=== PATIENT | male | born 1945 | race Caucasian/White ===

== ENCOUNTER 2020-05-29 20:02 | Inpatient (IN) | payer MEDICARE, SELFPAY ==
[2020-05-26 09:35] VITALS: BMI 25.0
--- NOTE | 2020-05-26 10:52 | P.CONAN_ITS ---
Documented by User: Nia Reese 05/26/20 10:53 [facility] Past Medical History Medical History Arthritis Asthma Back pain COPD (chronic obstructive pulmonary disease) HTN (hypertension) Hypogonadism Hypothyroid Kidney stone Prostate cancer PVD (peripheral vascular disease) Surgical History Surgical History H/O hernia repair History of colonoscopy History of esophagogastroduodenoscopy (EGD) History of prostate surgery Social History Social History Smoking Status: Former smoker Use of substances other than those prescribed or required for medical reasons: No Have you been hit, kicked, punched, or otherwise hurt by someone within the past year? If so, by whom?: No Advance Directives: No Advance Directives Information Provided: Yes Advance Directives on File: No Recently lost weight without trying: No Meds Allergies Allergy/AdvReac Type Severity Reaction Status Date / Time oxycodone [OXYCODONE] Allergy Severe VOMITING, Unverified 05/11/20 14:53 very ill garlic [GARLIC] Allergy Intermediate N/V Unverified 05/11/20 14:53 povidone-iodine Allergy Intermediate RASH Unverified 05/11/20 14:53 [From BETADINE] tramadol [TRAMADOL] Allergy Intermediate GI UPSET, Unverified 05/11/20 14:53 stomach upset diclofenac [DICLOFENAC] Allergy Unknown UNKNOWN Unverified 05/11/20 14:53 finasteride [FINASTERIDE] Allergy Unknown UNKNOWN Unverified 05/11/20 14:53 gabapentin Allergy Unknown Verified 02/01/20 00:00 leuprolide [LEUPROLIDE] Allergy Unknown UNKNOWN Unverified 05/11/20 14:53 naproxen [NAPROXEN] Allergy Unknown UNKNOWN Unverified 05/11/20 14:53 onions Allergy Unknown diarrhea Unverified 02/01/20 00:00 prednisone [PREDNISONE] Allergy Unknown UNKNOWN Unverified 05/11/20 14:53 soap [Betadine] Allergy Unknown Verified 02/01/20 00:00 onion [Onion] AdvReac Intermediate DIARRHEA Unverified 05/11/20 14:53 solifenacin [From VESICARE] AdvReac Intermediate DIZZINESS,N Unverified 05/11/20 14:53 AUSEA cephalexin AdvReac Unknown Verified 02/01/20 00:00 garlic Allergy Unknown diarrhea Uncoded 01/19/20 00:00 vitamin c Allergy Unknown severe Uncoded 01/19/20 00:00 heartburn Home Medications Medication Instructions Recorded Confirmed Type Phenylephrine CM 10 mg DAILY 05/26/20 05/26/20 History Vitamin D3 1 cap PO DAILY 05/26/20 05/26/20 History acetaminophen [Tylenol] 650 mg PO Q6H PRN 05/26/20 05/26/20 History albuterol sulfate 2 puff PO Q6H PRN 05/26/20 05/26/20 History apalutamide 60 mg PO DAILY 05/26/20 05/26/20 History aspirin 81 mg PO DAILY 05/26/20 05/26/20 History calcium carbonate 1 tab PO DAILY 05/26/20 05/26/20 History cefuroxime axetil 1 tab PO Q12H 05/26/20 05/26/20 History cephalexin 500 mg PO Q12H 05/26/20 05/26/20 History cilostazol 50 mg PO BID 05/26/20 05/26/20 History coenzyme Q10 [Co Q-10] 100 mg PO DAILY 05/26/20 05/26/20 History diclofenac potassium 50 mg PO BID 05/26/20 05/26/20 History fluticasone propionate [Flonase] 1 spray INTRANASAL DAILY 05/26/20 05/26/20 History lisinopril 20 mg PO DAILY 05/26/20 05/26/20 History magnesium 1 tab PO DAILY 05/26/20 05/26/20 History tamsulosin 0.4 mg PO DAILY 05/26/20 05/26/20 History trimethoprim 1 tab PO DAILY 05/26/20 05/26/20 History vitamin B complex 1 cap PO DAILY 05/26/20 05/26/20 History vitamin I00-nfgdw acid 100 mcg PO DAILY 05/26/20 05/26/20 History Azo Bladder Control 05/29/20 History amlodipine 1 tab PO DAILY 05/29/20 05/29/20 History enzalutamide [Xtandi] mg PO 05/29/20 History ipratropium-albuterol 1 amp INHALATION Q6H 05/29/20 05/29/20 History Exam Exam Date and Time: May 26, 2020 1052 Height,Weight and Vital Signs: Height 5 ft 7 in Weight 72.575 kg Assessment and Plan Assessment Anesthesia Assessment: Chart Reviewed Documented by User: Giovanny Barton MD 05/29/20 12:45 [facility] Past Medical History Medical History Arthritis Asthma Back pain COPD (chronic obstructive pulmonary disease) HTN (hypertension) Hypogonadism Hypothyroid Kidney stone Prostate cancer PVD (peripheral vascular disease) Surgical History Surgical History H/O hernia repair History of colonoscopy History of esophagogastroduodenoscopy (EGD) History of prostate surgery Social History Social History Smoking Status: Former smoker Use of substances other than those prescribed or required for medical reasons: No Have you been hit, kicked, punched, or otherwise hurt by someone within the past year? If so, by whom?: No Advance Directives: No Advance Directives Information Provided: Yes Advance Directives on File: No Recently lost weight without trying: No Meds Allergies Allergy/AdvReac Type Severity Reaction Status Date / Time oxycodone [OXYCODONE] Allergy Severe VOMITING, Unverified 05/11/20 14:53 very ill garlic [GARLIC] Allergy Intermediate N/V Unverified 05/11/20 14:53 povidone-iodine Allergy Intermediate RASH Unverified 05/11/20 14:53 [From BETADINE] tramadol [TRAMADOL] Allergy Intermediate GI UPSET, Unverified 05/11/20 14:53 stomach upset diclofenac [DICLOFENAC] Allergy Unknown UNKNOWN Unverified 05/11/20 14:53 finasteride [FINASTERIDE] Allergy Unknown UNKNOWN Unverified 05/11/20 14:53 gabapentin Allergy Unknown Verified 02/01/20 00:00 leuprolide [LEUPROLIDE] Allergy Unknown UNKNOWN Unverified 05/11/20 14:53 naproxen [NAPROXEN] Allergy Unknown UNKNOWN Unverified 05/11/20 14:53 onions Allergy Unknown diarrhea Unverified 02/01/20 00:00 prednisone [PREDNISONE] Allergy Unknown UNKNOWN Unverified 05/11/20 14:53 soap [Betadine] Allergy Unknown Verified 02/01/20 00:00 onion [Onion] AdvReac Intermediate DIARRHEA Unverified 05/11/20 14:53 solifenacin [From VESICARE] AdvReac Intermediate DIZZINESS,N Unverified 05/11/20 14:53 AUSEA cephalexin AdvReac Unknown Verified 02/01/20 00:00 garlic Allergy Unknown diarrhea Uncoded 01/19/20 00:00 vitamin c Allergy Unknown severe Uncoded 01/19/20 00:00 heartburn Home Medications Medication Instructions Recorded Confirmed Type Phenylephrine CM 10 mg DAILY 05/26/20 05/26/20 History Vitamin D3 1 cap PO DAILY 05/26/20 05/26/20 History acetaminophen [Tylenol] 650 mg PO Q6H PRN 05/26/20 05/26/20 History albuterol sulfate 2 puff PO Q6H PRN 05/26/20 05/26/20 History apalutamide 60 mg PO DAILY 05/26/20 05/26/20 History aspirin 81 mg PO DAILY 05/26/20 05/26/20 History calcium carbonate 1 tab PO DAILY 05/26/20 05/26/20 History cefuroxime axetil 1 tab PO Q12H 05/26/20 05/26/20 History cephalexin 500 mg PO Q12H 05/26/20 05/26/20 History cilostazol 50 mg PO BID 05/26/20 05/26/20 History coenzyme Q10 [Co Q-10] 100 mg PO DAILY 05/26/20 05/26/20 History diclofenac potassium 50 mg PO BID 05/26/20 05/26/20 History fluticasone propionate [Flonase] 1 spray INTRANASAL DAILY 05/26/20 05/26/20 History lisinopril 20 mg PO DAILY 05/26/20 05/26/20 History magnesium 1 tab PO DAILY 05/26/20 05/26/20 History tamsulosin 0.4 mg PO DAILY 05/26/20 05/26/20 History trimethoprim 1 tab PO DAILY 05/26/20 05/26/20 History vitamin B complex 1 cap PO DAILY 05/26/20 05/26/20 History vitamin F73-joeke acid 100 mcg PO DAILY 05/26/20 05/26/20 History Azo Bladder Control 05/29/20 History amlodipine 1 tab PO DAILY 05/29/20 05/29/20 History enzalutamide [Xtandi] mg PO 05/29/20 History ipratropium-albuterol 1 amp INHALATION Q6H 05/29/20 05/29/20 History
[2020-05-29] VITALS (31 sets, daily range): BP systolic 112–199; BP diastolic 56–99; PULSE 77–122; RESP 14–24; TEMP 36.1–38.4; O2SAT 90–100
--- NOTE | 2020-05-29 | ECG_ITS ---
Test Reason : arrythmia Blood Pressure : / mmHG Vent. Rate : 136 BPM Atrial Rate : 192 BPM P-R Int : 000 ms QRS Dur : 116 ms QT Int : 284 ms P-R-T Axes : 000 063 027 degrees QTc Int : 427 ms Atrial fibrillation with rapid ventricular response with premature ventricular or aberrantly conducted complexes Right bundle branch block Abnormal ECG When compared with ECG of 11-APR-2020 17:12, Atrial fibrillation has replaced Sinus rhythm Vent. rate has increased BY 59 BPM Non-specific change in ST segment in Inferior leads ST now depressed in Anterolateral leads T wave inversion now evident in Anterior leads Referred By: aPko Mendoza Electronically Signed By:LEONEL ROBERTS
[2020-05-29] MEDS: levoFLOXacin 500 MG TABLET PO (11:00)
[2020-05-29] MEDS: Lactated Ringers 1,000 ML 100 ML IVCONT (11:00)
[2020-05-29] MEDS: Albuterol Sulfate (0.083%) 2.5 MG/3 ML VIAL.NEB INHALE ×3 (11:17→21:54)
--- NOTE | 2020-05-29 13:55 | FL_ITS ---
EXAMINATION: XR FLUOROSCOPY CLINICAL INFORMATION: Prostate cancer. Bilateral ureteral stent exchange COMPARISON: Previous CT of the abdomen and pelvis November 2019 TECHNIQUE: Fluoroscopy guidance was provided for Dr. Bear for bilateral internal ureteral stent exchange. Fluoroscopy time 109 seconds. Cumulative dose 46 mgy. 5 saved fluoroscopic images. FINDINGS: Images demonstrate bilateral internal ureteral stents. The left ureter is opacified with contrast and is dilated. IMPRESSION: Fluoroscopy guidance for bilateral internal ureteral stent exchange.
--- NOTE | 2020-05-29 14:38 | PM.OP ---
Brief Operative Note Date of procedure: 05/29/20 Pre-op diagnosis: Bilateral hydro from cancer Post-op diagnosis: same Procedure: bilateral stent removal bilateral retrograde bilateral stent placement meatal stenosis dilation Implants: 2x stents Anesthesia: GLMA Surgeon: Yoel Bear Pathology: none sent Condition: stable Disposition: same day
[2020-05-29] MEDS: fentaNYL citrate/PF 100 MCG/2 ML VIAL 25 MCG IVPUSH ×4 (14:58→15:45)
[2020-05-29] MEDS: Phenazopyridine HCL 100 MG TABLET PO (16:03)
[2020-05-29] MEDS: Lactated Ringers 1,000 ML 999 ML IVCONT (17:50)
[2020-05-29] MEDS: ondansetron HCL 4 MG/2 ML VIAL IVPUSH (18:01)
[2020-05-29] MEDS: Gentamicin Sulfate/NaCl 80 MG/100 ML PIGGYBACK 100 MG IV (18:02)
--- NOTE | 2020-05-29 19:19 | PC.NURSE ---
Addendum entered by Lizz Gonzalez RN 05/29/20 19:39: 1740 givens unplugged and put to drainage bag, done with sterile technique, urine yellow/marisa with tiny clots/ sediment Original Note: 1750 Scanner not working , Maricarmen Simon aware Zofran 4mg IV given for nausea with good results at 1730 acetaminophen 100mg IV given at 1745 LR 1000 cc fluid bolus started at 1730 Gentamicin 80mh IV started at 1758
[2020-05-29 19:41] LABS: Basophils Percent Auto 0.1 % (0-2); Eosinophils Percent Auto 0.2 % (0-4); Hematocrit 26.3 % (42-52); Hemoglobin 7.9 g/dl (14.0-18.0); Imm Gran Abs Auto 0.03 X10*3/uL (0.00-0.03); Imm Gran Pct Auto 0.3 % (0.0-0.4); Lymphocytes Absolute Auto 0.3 X10*3/uL (1.2-4.9); Lymphocytes Percent Auto 2.9 % (20-40); MANUAL DIFF FLAG SCAN; Mean Corpuscular Hemoglobin 28.9 pg (27.0-33.0); Mean Corpuscular Volume 96.3 fL (80-98); Mean Platelet Volume 9.3 fL (9.4-12.4); Monocytes Percent Auto 0.4 % (2-11); Neutrophils Absolute Auto 8.5 X10*3/uL (2.0-8.3); Neutrophils Percent Auto 96.1 % (45-73); Platelet Count 348 X10*3/uL (160-400); Red Blood Count 2.73 X10*6/uL (4.60-5.80); Red Cell Distribution Width 15.6 % (11.0-16.0); SCAN SMEAR FLAG 1; White Blood Count 8.9 X10*3/uL (4.8-10.8)
[2020-05-29 20:05] LABS: SLIDE REVIEW VERIFIED
[2020-05-29 20:12] LABS: Anion Gap 14 (12-20); Blood Urea Nitrogen 29 mg/dL (9-16); C Reactive Protein 6.17 mg/dL (< or = 0.50); Calcium 8.5 mg/dL (8.4-10.2); Carbon Dioxide 23 mmol/L (22-29); Chloride 109 mmol/L (96-108); Creatinine Clr Calc Pharmacy 32.7; Estimated Glomerular Filt Rate 36; Glucose Random 96 mg/dL (60-115); Potassium 4.6 mmol/l (3.3-5.1); Sodium 141 mmol/L (135-145)
[2020-05-29 20:23] LABS: Lactate Dehydrogenase 153 U/L (118-273)
[2020-05-29 20:40] LABS: Procalcitonin 0.48 ng/mL
--- NOTE | 2020-05-29 21:38 | PM.IMHP ---
History of Present Illness Date of Service: 05/29/20 Chief Complaint: Sepsis 74 y/o elderly male who presented to the hospital for an elective urology procedure with Dr Bear for bilateral ureteral stent removal. After procedure was completed patient was noted to meet sepsis criteria (fever of 101, HR of 116-120, tachypneic 22 with a suspected source of the infection been the urine). Basic labs including Bcx/Ucx was obtained in PACU, patient given one dose of gentamycin per Urology on the case and Medicine call for evaluation and direct admission. Patient has significant hx of prostate cancer, has been on xtandi and apalutamide. Last admission to our hospital in 01/11 due to MDR bacteria which was treated and discharged with 4 days of antbx as outpatient. Now patient presents for previously stated procedure which got complicated with sepsis. Patient was seen and evaluated at the bedside, laying down in bed in no acute distress. Awake, alert, oriented x 3. Reports a chronic pain in the chest which is exacerbated with palpation of the chest wall. No respiratory distress. Chills were present earlier. On physical givens is in place with evidence of mild hematuria. HR now 110-118 bpm, BP stable on IV hydration. Lactate to be obtained now. No leukocytosis on CBC, Hgb now of 7.9 (patient baseline of 8.0), creatinine of 1.82 which is worse than on previous admission 1.67. Rest of the labs prending. 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 PSx: Hernia repair, Colonoscopy, EGD, Prostate surgery Toxic habits: No documented hx of alcohol abuse, smoking or IVDA Review of Systems Constitutional: Constitutional: Reports as per HPI, Reports chills, Reports fever(s) and Reports malaise Cardiovascular: Cardiovascular: Reports chest pain at rest Genitourinary: Genitourinary: Reports hematuria FORMERLY [facility], 1928–1983 Medical History Arthritis Asthma Back pain COPD (chronic obstructive pulmonary disease) HTN (hypertension) Hypogonadism Hypothyroid Kidney stone Prostate cancer PVD (peripheral vascular disease) Functional capacity: independent ambulation Family history: reviewed and not pertinent Surgical History H/O hernia repair History of colonoscopy History of esophagogastroduodenoscopy (EGD) History of prostate surgery Social History Smoking Status: Former smoker Use of substances other than those prescribed or required for medical reasons: No Have you been hit, kicked, punched, or otherwise hurt by someone within the past year? If so, by whom?: No Advance Directives: No Advance Directives Information Provided: Yes Advance Directives on File: No Recently lost weight without trying: No Meds Allergies Allergy/AdvReac Type Severity Reaction Status Date / Time oxycodone [OXYCODONE] Allergy Severe VOMITING, Unverified 05/11/20 14:53 very ill garlic [GARLIC] Allergy Intermediate N/V Unverified 05/11/20 14:53 povidone-iodine Allergy Intermediate RASH Unverified 05/11/20 14:53 [From BETADINE] tramadol [TRAMADOL] Allergy Intermediate GI UPSET, Unverified 05/11/20 14:53 stomach upset diclofenac [DICLOFENAC] Allergy Unknown UNKNOWN Unverified 05/11/20 14:53 finasteride [FINASTERIDE] Allergy Unknown UNKNOWN Unverified 05/11/20 14:53 gabapentin Allergy Unknown Verified 02/01/20 00:00 leuprolide [LEUPROLIDE] Allergy Unknown UNKNOWN Unverified 05/11/20 14:53 naproxen [NAPROXEN] Allergy Unknown UNKNOWN Unverified 05/11/20 14:53 onions Allergy Unknown diarrhea Unverified 02/01/20 00:00 prednisone [PREDNISONE] Allergy Unknown UNKNOWN Unverified 05/11/20 14:53 soap [Betadine] Allergy Unknown Verified 02/01/20 00:00 onion [Onion] AdvReac Intermediate DIARRHEA Unverified 05/11/20 14:53 solifenacin [From VESICARE] AdvReac Intermediate DIZZINESS,N Unverified 05/11/20 14:53 AUSEA cephalexin AdvReac Unknown Verified 02/01/20 00:00 garlic Allergy Unknown diarrhea Uncoded 01/19/20 00:00 vitamin c Allergy Unknown severe Uncoded 01/19/20 00:00 heartburn Home Medications Medication Instructions Recorded Confirmed Type Phenylephrine CM 10 mg DAILY 05/26/20 05/26/20 History Vitamin D3 1 cap PO DAILY 05/26/20 05/26/20 History acetaminophen [Tylenol] 650 mg PO Q6H PRN 05/26/20 05/26/20 History albuterol sulfate 2 puff PO Q6H PRN 05/26/20 05/26/20 History apalutamide 60 mg PO DAILY 05/26/20 05/26/20 History aspirin 81 mg PO DAILY 05/26/20 05/26/20 History calcium carbonate 1 tab PO DAILY 05/26/20 05/26/20 History cefuroxime axetil 1 tab PO Q12H 05/26/20 05/26/20 History cilostazol 50 mg PO BID 05/26/20 05/26/20 History coenzyme Q10 [Co Q-10] 100 mg PO DAILY 05/26/20 05/26/20 History diclofenac potassium 50 mg PO BID 05/26/20 05/26/20 History fluticasone propionate 1 spray INTRANASAL DAILY 05/26/20 05/26/20 History lisinopril 20 mg PO DAILY 05/26/20 05/26/20 History magnesium 1 tab PO DAILY 05/26/20 05/26/20 History tamsulosin 0.4 mg PO DAILY 05/26/20 05/26/20 History trimethoprim 1 tab PO DAILY 05/26/20 05/26/20 History vitamin B complex 1 cap PO DAILY 05/26/20 05/26/20 History vitamin M11-eopej acid 100 mcg PO DAILY 05/26/20 05/26/20 History Azo Bladder Control 05/29/20 History Xtandi mg PO 05/29/20 History amlodipine 1 tab PO DAILY 05/29/20 05/29/20 History ipratropium-albuterol 1 amp INHALATION Q6H 05/29/20 05/29/20 History Physical Exam Vital Signs and Narrative: Vital Signs: Last Vital Signs Temp 100.5 F H 05/29/20 20:57 Pulse 117 H 05/29/20 20:57 Resp 22 H 05/29/20 20:57 BP 158/56 H 05/29/20 20:57 Pulse Ox 96 05/29/20 20:57 Body Mass Index 25.0 Const: General: cooperative, comfortable and no acute distress Orientation/consciousness: oriented to person, oriented to place and oriented to time HENMT: Head: Yes normal to inspection Eyes: General: appearance normal, both eyes and all related structures Neck: Yes normal visual inspection and Yes full ROM Chest: Chest palpation & inspection: normal inspection of the chest Resp: Effort & Inspection: normal respiratory effort Cardio: Jugular venous distension: no JVD Heart sounds: S1 normal heart sound present and S2 normal heart sound present GI: Inspection: Yes normal to inspection : Testes: other (givens in place) Skin: General skin exam: no rashes or lesions noted Neuro: General: oriented to person, oriented to place and oriented to time Psych: Appearance: grossly normal Results Labs Labs: Laboratory Tests 05/29/20 05/29/20 05/29/20 19:15 19:15 19:15 WBC 8.9 RBC 2.73 L Hgb 7.9 L Hct 26.3 L MCV 96.3 MCH 28.9 MCHC 30.0 L RDW 15.6 Plt Count 348 MPV 9.3 L Immature Gran % (Auto) 0.3 Neut % (Auto) 96.1 H Lymph % (Auto) 2.9 L Pickett % (Auto) 0.4 L Eos % (Auto) 0.2 Baso % (Auto) 0.1 Neut # (Auto) 8.5 H Lymph # (Auto) 0.3 L Pickett # (Auto) 0.0 L Eos # (Auto) 0.0 Baso # (Auto) 0.0 Abs Immat Gran (auto) 0.03 Absolute Nucleated RBC 0.000 Nucleated RBC % (auto) 0.0 Smear Tech's Comments VERIFIED Sodium 141 Potassium 4.6 Chloride 109 H Carbon Dioxide 23 Anion Gap 14 BUN 29 H Creatinine 1.82 H Estim Creat Clear Calc 32.7 Estimated GFR 36 Random Glucose 96 Calcium 8.5 Lactate Dehydrogenase 153 C-Reactive Protein 6.17 H Procalcitonin 0.48 Assessment and Plan (1) Sepsis: Status: Acute tachycardic at present but improving S/p one dose of Gentamycin. Will continue with Rocephin as ordered for gram neg coverage Follow up lactate levels Follow up Bcx and Ucx Keep MAP >65 mmHg IMC Continue with Givens for I and O's Monitor H&H given mild hematuria which likely is secondary to urology procedure Continue with IV hydration (2) UTI (urinary tract infection): Status: Acute Continue with Rocephin as above for gram neg coverage Follow up Bcx and Ucx. Hx of MDR bacteremia in the past Infectious disease consult (3) CKD (chronic kidney disease): Status: Acute DARYL on CKD likely multifactorial given now sepsis Creatinine from 1.6 to 1.8 Continue with IV hydration and monitor electrolytes closely nephrology consult (4) Anemia: Status: Acute likely secondary to hematuria and chronic disease Baseline Hg of 8, now 7.9 Monitor H and H closely and Keep Hgb >7 Monitor I and O Continue with Givens and IV hydration (5) COPD (chronic obstructive pulmonary disease): Status: Acute continue with inhaler as ordered home dose (6) Prostate cancer: Status: Acute continue with apalutamide and xtandi continue with flomax home dose (7) HTN (hypertension): Status: Acute continue with amlodipine home dose continue with lisinopril home dose continue with aspirin home dose (8) PVD (peripheral vascular disease): Status: Acute continue with cilostazol home dose
[2020-05-29 22:31] LABS: Lactic Acid 1.8 mmol/L (0.5-2.0)
[2020-05-29] MEDS: cilostazoL 50 MG TABLET PO (23:16)
[2020-05-29] MEDS: cefTRIAXone sodium 1 GM in 0.9 % Sodium Chloride 50 ML IV (23:16)
[2020-05-29] MEDS: 0.9 % Sodium Chloride 1,000 ML 999 ML IVCONT (23:16)
[2020-05-30] VITALS (20 sets, daily range): BP systolic 91–140; BP diastolic 43–75; PULSE 78–175; RESP 18–26; TEMP 36.4–37.6; O2SAT 94–98
--- NOTE | 2020-05-30 | ECG_ITS ---
Test Reason : TACHYCARDIA Blood Pressure : / mmHG Vent. Rate : 140 BPM Atrial Rate : 144 BPM P-R Int : 000 ms QRS Dur : 114 ms QT Int : 312 ms P-R-T Axes : 000 062 048 degrees QTc Int : 476 ms Atrial fibrillation with rapid ventricular response Right bundle branch block Abnormal ECG When compared with ECG of 29-MAY-2020 22:18, No significant change was found Referred By: Cayla Carrillo Electronically Signed By:LEONEL ROBERTS
--- NOTE | 2020-05-30 | XR_ITS ---
EXAMINATION: XR CHEST CLINICAL INFORMATION: Shortness of breath, tachycardia. History of prostate cancer. COMPARISON: None TECHNIQUE: Frontal view of the chest was obtained. FINDINGS: Rotated positioning. Cardiac and mediastinal silhouette is within normal limits. There is a mass in the left upper lobe measuring 2.8 x 2.3 cm, which appears slightly more prominent as compared to the prior study. This could be related to difference in positioning. There is a peribronchial thickening in bilateral lungs. There is hazy patchy opacity in the left lung base, new from previous, from atelectasis or infiltrate. Mild central vascular prominence. Possible trace left pleural effusion. Old right-sided rib fractures are noted. Sclerotic focus in the proximal right humerus was also seen the prior study of 03/20/2020. Rounded opacity partially projected over the proximal left humerus, suggesting it is overlying the patient. IMPRESSION: 1. Central vascular prominence without overt pulmonary edema. Left basilar airspace opacity from atelectasis or infiltrate. Possible trace left pleural effusion. 2. Redemonstrated left upper lobe mass, slightly more prominent in size as compared to the prior study, which could be due to difference in technique. Clinical history of prostate cancer. This is suspected to represent metastatic disease. This can be further evaluated with CT chest with contrast. 3. Peribronchial thickening in bilateral lungs.
[2020-05-30] MEDS: 0.9 % Sodium Chloride Flush 3 ML SYRINGE 2 ML IVFLUSH ×3 (00:05→15:02)
[2020-05-30] MEDS: Lactated Ringers 1,000 ML 100 ML IVCONT ×2 (00:10→09:44)
[2020-05-30] MEDS: Metoprolol Tartrate 5 MG/5 ML VIAL 2.5 MG IVPUSH (00:47)
[2020-05-30] MEDS: Albuterol/Iprat 2.5/0.5MG 3 ML AMPUL.NEB INHALE ×2 (05:21→11:06)
[2020-05-30 06:47] LABS: Basophils Absolute Auto 0.1 X10*3/uL (0.0-0.2); Basophils Percent Auto 0.2 % (0-2); Hemoglobin 7.7 g/dl (14.0-18.0); Imm Gran Abs Auto 0.34 X10*3/uL (0.00-0.03); Imm Gran Pct Auto 1.1 % (0.0-0.4); Lymphocytes Absolute Auto 0.2 X10*3/uL (1.2-4.9); Lymphocytes Percent Auto 0.6 % (20-40); MANUAL DIFF FLAG SCAN; Mean Corpuscular HGB Conc 30.8 g/dl (31.0-36.0); Mean Corpuscular Hemoglobin 29.7 pg (27.0-33.0); Mean Corpuscular Volume 96.5 fL (80-98); Mean Platelet Volume 9.8 fL (9.4-12.4); Monocytes Absolute Auto 0.7 X10*3/uL (0.1-1.2); Monocytes Percent Auto 2.5 % (2-11); Neutrophils Absolute Auto 28.5 X10*3/uL (2.0-8.3); Neutrophils Percent Auto 95.6 % (45-73); Platelet Count 353 X10*3/uL (160-400); Red Blood Count 2.59 X10*6/uL (4.60-5.80); Red Cell Distribution Width 15.7 % (11.0-16.0); SCAN SMEAR FLAG 1; White Blood Count 29.8 X10*3/uL (4.8-10.8)
[2020-05-30 07:28] LABS: Anion Gap 13 (12-20); Blood Urea Nitrogen 26 mg/dL (9-16); Calcium 7.9 mg/dL (8.4-10.2); Carbon Dioxide 24 mmol/L (22-29); Chloride 109 mmol/L (96-108); Creatinine Clr Calc Pharmacy 33.3; Estimated Glomerular Filt Rate 37; Glucose Random 122 mg/dL (60-115); Potassium 4.4 mmol/l (3.3-5.1); Sodium 142 mmol/L (135-145)
[2020-05-30 07:44] LABS: SLIDE REVIEW VERIFIED
--- NOTE | 2020-05-30 07:59 | HO.POSTANES ---
Post Anesthesia Evaluation Post Anesthesia Evaluation Vital Signs: Vital Signs Temp Pulse Resp BP Pulse Ox 05/30/20 07:54 98.8 F 114 H 20 135/62 97 05/30/20 03:12 99.0 F 93 18 119/53 L 96 05/30/20 00:47 132 H 140/75 H 05/30/20 00:00 95 05/29/20 23:19 98.6 F 122 H 19 149/75 H 95 05/29/20 21:53 99 F 98 18 145/67 H 94 05/29/20 20:57 100.5 F H 117 H 22 H 158/56 H 96 05/29/20 20:27 99.3 F 119 H 20 151/60 H 95 Anesthesia: General LMA Mental Status: Awake Pain Control: Satisfactory Nausea/Vomiting: None Hydration: Adequate Anesthesia-Related Issues: No Anes. Related Issues
--- NOTE | 2020-05-30 08:00 | HO.ANESPROP2 ---
[facility] Past Medical History Medical History (Updated 05/29/20 @ 22:16 by Pako Mendoza MD) Arthritis Asthma Back pain COPD (chronic obstructive pulmonary disease) HTN (hypertension) Hypogonadism Hypothyroid Kidney stone Prostate cancer PVD (peripheral vascular disease) Functional capacity: independent ambulation Surgical History Surgical History H/O hernia repair History of colonoscopy History of esophagogastroduodenoscopy (EGD) History of prostate surgery Social History Social History Smoking Status: Former smoker Use of substances other than those prescribed or required for medical reasons: No Have you been hit, kicked, punched, or otherwise hurt by someone within the past year? If so, by whom?: No Advance Directives: No Advance Directives Information Provided: Yes Advance Directives on File: No Recently lost weight without trying: No Meds Allergies Allergy/AdvReac Type Severity Reaction Status Date / Time oxycodone [OXYCODONE] Allergy Severe VOMITING, Unverified 05/11/20 14:53 very ill garlic [GARLIC] Allergy Intermediate N/V Unverified 05/11/20 14:53 povidone-iodine Allergy Intermediate RASH Unverified 05/11/20 14:53 [From BETADINE] tramadol [TRAMADOL] Allergy Intermediate GI UPSET, Unverified 05/11/20 14:53 stomach upset diclofenac [DICLOFENAC] Allergy Unknown UNKNOWN Unverified 05/11/20 14:53 finasteride [FINASTERIDE] Allergy Unknown UNKNOWN Unverified 05/11/20 14:53 gabapentin Allergy Unknown Verified 02/01/20 00:00 leuprolide [LEUPROLIDE] Allergy Unknown UNKNOWN Unverified 05/11/20 14:53 naproxen [NAPROXEN] Allergy Unknown UNKNOWN Unverified 05/11/20 14:53 onions Allergy Unknown diarrhea Unverified 02/01/20 00:00 prednisone [PREDNISONE] Allergy Unknown UNKNOWN Unverified 05/11/20 14:53 soap [Betadine] Allergy Unknown Verified 02/01/20 00:00 onion [Onion] AdvReac Intermediate DIARRHEA Unverified 05/11/20 14:53 solifenacin [From VESICARE] AdvReac Intermediate DIZZINESS,N Unverified 05/11/20 14:53 AUSEA cephalexin AdvReac Unknown Verified 02/01/20 00:00 garlic Allergy Unknown diarrhea Uncoded 01/19/20 00:00 vitamin c Allergy Unknown severe Uncoded 01/19/20 00:00 heartburn Home Medications Medication Instructions Recorded Confirmed Type Phenylephrine CM 10 mg DAILY 05/26/20 05/26/20 History Vitamin D3 1 cap PO DAILY 05/26/20 05/26/20 History acetaminophen [Tylenol] 650 mg PO Q6H PRN 05/26/20 05/26/20 History albuterol sulfate 2 puff PO Q6H PRN 05/26/20 05/26/20 History apalutamide 60 mg PO DAILY 05/26/20 05/26/20 History aspirin 81 mg PO DAILY 05/26/20 05/26/20 History calcium carbonate 1 tab PO DAILY 05/26/20 05/26/20 History cefuroxime axetil 1 tab PO Q12H 05/26/20 05/26/20 History cilostazol 50 mg PO BID 05/26/20 05/26/20 History coenzyme Q10 [Co Q-10] 100 mg PO DAILY 05/26/20 05/26/20 History diclofenac potassium 50 mg PO BID 05/26/20 05/26/20 History fluticasone propionate 1 spray INTRANASAL DAILY 05/26/20 05/26/20 History lisinopril 20 mg PO DAILY 05/26/20 05/26/20 History magnesium 1 tab PO DAILY 05/26/20 05/26/20 History tamsulosin 0.4 mg PO DAILY 05/26/20 05/26/20 History trimethoprim 1 tab PO DAILY 05/26/20 05/26/20 History vitamin B complex 1 cap PO DAILY 05/26/20 05/26/20 History vitamin [id number] acid 100 mcg PO DAILY 05/26/20 05/26/20 History Azo Bladder Control 05/29/20 History Xtandi mg PO 05/29/20 History amlodipine 1 tab PO DAILY 05/29/20 05/29/20 History ipratropium-albuterol 1 amp INHALATION Q6H 05/29/20 05/29/20 History Exam Exam Date and Time: May 30, 2020 0800 Height,Weight and Vital Signs: Height 5 ft 7 in Weight 72.575 kg Last Vital Signs Temp 98.8 F 05/30/20 07:54 Pulse 114 H 05/30/20 07:54 Resp 20 05/30/20 07:54 BP 135/62 05/30/20 07:54 Pulse Ox 97 05/30/20 07:54 Pertinent Lab Results Pertinent Lab Results: Laboratory Tests 05/29/20 05/29/20 05/29/20 19:15 19:15 19:15 WBC 8.9 RBC 2.73 L Hgb 7.9 L Hct 26.3 L MCV 96.3 MCH 28.9 MCHC 30.0 L RDW 15.6 Plt Count 348 MPV 9.3 L Immature Gran % (Auto) 0.3 Neut % (Auto) 96.1 H Lymph % (Auto) 2.9 L [place] % (Auto) 0.4 L Eos % (Auto) 0.2 Baso % (Auto) 0.1 Neut # (Auto) 8.5 H Lymph # (Auto) 0.3 L [place] # (Auto) 0.0 L Eos # (Auto) 0.0 Baso # (Auto) 0.0 Abs Immat Gran (auto) 0.03 Absolute Nucleated RBC 0.000 Nucleated RBC % (auto) 0.0 Smear Tech's Comments VERIFIED Sodium 141 Potassium 4.6 Chloride 109 H Carbon Dioxide 23 Anion Gap 14 BUN 29 H Creatinine 1.82 H Estim Creat Clear Calc 32.7 Estimated GFR 36 Random Glucose 96 Lactic Acid Calcium 8.5 Lactate Dehydrogenase 153 C-Reactive Protein 6.17 H Procalcitonin 0.48 05/29/20 05/30/20 05/30/20 22:05 05:26 05:26 WBC 29.8 H RBC 2.59 L Hgb 7.7 L Hct 25.0 L MCV 96.5 MCH 29.7 MCHC 30.8 L RDW 15.7 Plt Count 353 MPV 9.8 Immature Gran % (Auto) 1.1 H Neut % (Auto) 95.6 H Lymph % (Auto) 0.6 L [place] % (Auto) 2.5 Eos % (Auto) 0.0 Baso % (Auto) 0.2 Neut # (Auto) 28.5 H Lymph # (Auto) 0.2 L [place] # (Auto) 0.7 Eos # (Auto) 0.0 Baso # (Auto) 0.1 Abs Immat Gran (auto) 0.34 H Absolute Nucleated RBC 0.000 Nucleated RBC % (auto) 0.0 Smear Tech's Comments VERIFIED Sodium 142 Potassium 4.4 Chloride 109 H Carbon Dioxide 24 Anion Gap 13 BUN 26 H Creatinine 1.79 H Estim Creat Clear Calc 33.3 Estimated GFR 37 Random Glucose 122 H Lactic Acid 1.8 Calcium 7.9 L Lactate Dehydrogenase C-Reactive Protein Procalcitonin Assessment and Plan Final Anesthetic Review NPO: Yes
--- NOTE | 2020-05-30 08:49 | PM.UROPN ---
Subjective Subjective Interval history: 74 yr male Postop day 1 bilateral stent change Postop fever Admitted for observation and antibiotics Elevated WBC today Physical Exam Vital Signs and I&O and Narrative: Vital Signs and I&O: Vital Signs Temp 98.8 F 05/30/20 07:54 Pulse 114 H 05/30/20 07:54 Resp 20 05/30/20 07:54 BP 135/62 05/30/20 07:54 Pulse Ox 97 05/30/20 07:54 Intake & Output 05/29/20 05/30/20 05/30/20 18:59 06:59 18:59 Intake Total 400 / 2450 2049 Output Total 275 / 2275 1999 Balance 125 / 175 50 / 175 Urine Output (Aver age ml/kg/hr) 0.32 2.30 2.30 Intake: Intake, Oral [place] unt 400 / 400 Intake, IV Amoun t 2049 cefTRIAXone so dium 1 gm In 0.9 50 / 50 % Sodium Chlor ilda 50 ml @ 100 mls/hr IV Q24H [facility] Rx#: [id number] 0.9 % Sodium C hloride 1,000 ml 1000 / 1000 @ 999 mls/hr I VCONT .Q1H1M ONE Rx#:[id number] Lactated Ringe rs 1,000 ml @ 100 1000 / 1000 mls/hr IVCONT .Q10H [facility] Rx#: [id number] Output: Output, Urine Am ount 275 / 275 Output, Urine Am ount (Catheter) 1999 2-way Urethral 1999 Other: NPO Yes Urine Urinal Urine Color small clot Body Mass Index 25.0 Progress Note: A&P Assessment and plan (1) Sepsis: Status: Acute Assessment and Plan: Receiving IV antibiotics Supportive care currently with IV fluids regular diet continue to follow Fall Risk Details Current Medications: Current Medications Generic Name Dose Route Start Last Admin Trade Name Freq PRN Reason Stop Dose Admin Acetaminophen 650 mg 05/29/20 15:01 Acetaminophen 325 Mg Tablet PO ONCE PRN Pain, Mild (Pain Scale 1-3) Albuterol Sulfate 2.5 mg 05/29/20 10:27 05/29/20 21:54 Albuterol Sulfate (0.083%) 2.5 Mg/3 Ml Vial.Neb INHALE 2.5 mg ONCE PRN Administration Shortness of Breath/Wheezing Albuterol/Ipratropium 3 ml 05/30/20 12:00 Albuterol/Iprat 2.5/0.5mg 3 Ml Ampul.Neb INHALE RQ6H [facility] Amlodipine Besylate 10 mg 05/30/20 09:00 Amlodipine Besylate 10 Mg Tablet PO DAILY [facility] Protocol Aspirin 81 mg 05/30/20 09:00 Aspirin 81 Mg Tab.Chew PO DAILY [facility] Cilostazol 50 mg 05/29/20 21:59 05/29/20 23:16 Cilostazol 50 Mg Tablet PO 50 mg BID [facility] Administration Lactated Ringer's 1,000 mls @ 100 mls/hr 05/29/20 10:30 05/30/20 00:10 Lr IVCONT 100 mls/hr .Q10H [facility] Administration Ceftriaxone Sodium 1 gm/ 50 mls @ 100 mls/hr 05/29/20 22:00 05/30/20 00:03 Sodium Chloride IV Infused Q24H [facility] Infusion Lisinopril 20 mg 05/30/20 09:00 Lisinopril 20 Mg Tablet PO DAILY [facility] Protocol Non-Formulary Medication 60 mg 05/30/20 09:00 Apalutamide PO DAILY [facility] Ondansetron HCl 4 mg 05/29/20 17:30 05/29/20 18:01 Ondansetron Hcl 4 Mg/2 Ml Vial IVPUSH 4 mg Q8H PRN Administration Nausea Sodium Chloride 2 ml 05/30/20 00:00 05/30/20 00:05 0.9 % Sodium Chloride Flush 3 Ml Syringe IVFLUSH 2 ml QSHIFT [facility] Administration Tamsulosin HCl 0.4 mg 05/30/20 17:30 Tamsulosin Hcl 0.4 Mg Capsule PO DAILY@1730 [facility] Time Spent With Patient Time: Total time spent is greater than 50% in coordination of care (as documented) at patient's floor/unit and/or counseling patient: Time with patient: 15 - 24 minutes
--- NOTE | 2020-05-30 09:14 | MHC.CM.PN ---
Patient lives alone in an apartment and reports being functionally independent, using no DME to assist with mobility. Patient has home O2 but cannot recall the name of the supplier. Patient was getting no home services and his goal is to return home. CM has initiated and will follow for dc planning. Patient's Niece- Shaye Burch, from [place] is Patient's HCP. Patient has no family nor supports in this area. IMM addressed with Patient and the original has been given to him and a copy has been placed on the chart.
[2020-05-30] MEDS: cilostazoL 50 MG TABLET PO (09:43)
[2020-05-30] MEDS: lisinopriL 20 MG TABLET PO (09:43)
[2020-05-30] MEDS: Aspirin 81 MG TAB.CHEW PO (09:43)
[2020-05-30] MEDS: amLODIPine Besylate 10 MG TABLET PO (09:43)
--- NOTE | 2020-05-30 11:24 | P.CONNP_ITS ---
History of Present Illness Reason for Consult Consult date: 05/30/20 Reason for consult: DARYL Chief Complaint Chief complaint: fever History of Present Illness Narrative: 74 y/o wM poor historian ..infor obtained from EMR Yestrday had ureteral stens replaced by urol and developed fever c/w SIRS and was given ABX and adm to hosp. Overall feeling better today. 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 PSx: Hernia repair, Colonoscopy, EGD, Prostate surgery [facility] Past Medical History Medical History (Updated 05/29/20 @ 22:16 by Pako Mendoza MD) Arthritis Asthma Back pain COPD (chronic obstructive pulmonary disease) HTN (hypertension) Hypogonadism Hypothyroid Kidney stone Prostate cancer PVD (peripheral vascular disease) Functional capacity: independent ambulation Family History Family history: reviewed and not pertinent Surgical History Surgical History H/O hernia repair History of colonoscopy History of esophagogastroduodenoscopy (EGD) History of prostate surgery Social History Social History Smoking Status: Former smoker Use of substances other than those prescribed or required for medical reasons: No Have you been hit, kicked, punched, or otherwise hurt by someone within the past year? If so, by whom?: No Advance Directives: No Advance Directives Information Provided: Yes Advance Directives on File: No Recently lost weight without trying: No service: No Current occupational status: retired Meds Allergies Allergy/AdvReac Type Severity Reaction Status Date / Time oxycodone [OXYCODONE] Allergy Severe VOMITING, Unverified 05/11/20 14:53 very ill garlic [GARLIC] Allergy Intermediate N/V Unverified 05/11/20 14:53 povidone-iodine Allergy Intermediate RASH Unverified 05/11/20 14:53 [From BETADINE] tramadol [TRAMADOL] Allergy Intermediate GI UPSET, Unverified 05/11/20 14:53 stomach upset diclofenac [DICLOFENAC] Allergy Unknown UNKNOWN Unverified 05/11/20 14:53 finasteride [FINASTERIDE] Allergy Unknown UNKNOWN Unverified 05/11/20 14:53 gabapentin Allergy Unknown Verified 02/01/20 00:00 leuprolide [LEUPROLIDE] Allergy Unknown UNKNOWN Unverified 05/11/20 14:53 naproxen [NAPROXEN] Allergy Unknown UNKNOWN Unverified 05/11/20 14:53 onions Allergy Unknown diarrhea Unverified 02/01/20 00:00 prednisone [PREDNISONE] Allergy Unknown UNKNOWN Unverified 05/11/20 14:53 soap [Betadine] Allergy Unknown Verified 02/01/20 00:00 onion [Onion] AdvReac Intermediate DIARRHEA Unverified 05/11/20 14:53 solifenacin [From VESICARE] AdvReac Intermediate DIZZINESS,N Unverified 05/11/20 14:53 AUSEA cephalexin AdvReac Unknown Verified 02/01/20 00:00 garlic Allergy Unknown diarrhea Uncoded 01/19/20 00:00 vitamin c Allergy Unknown severe Uncoded 01/19/20 00:00 heartburn Home Medications Medication Instructions Recorded Confirmed Type Phenylephrine CM 10 mg DAILY 05/26/20 05/26/20 History Vitamin D3 1 cap PO DAILY 05/26/20 05/26/20 History acetaminophen [Tylenol] 650 mg PO Q6H PRN 05/26/20 05/26/20 History albuterol sulfate 2 puff PO Q6H PRN 05/26/20 05/26/20 History apalutamide 60 mg PO DAILY 05/26/20 05/26/20 History aspirin 81 mg PO DAILY 05/26/20 05/26/20 History calcium carbonate 1 tab PO DAILY 05/26/20 05/26/20 History cefuroxime axetil 1 tab PO Q12H 05/26/20 05/26/20 History cilostazol 50 mg PO BID 05/26/20 05/26/20 History coenzyme Q10 [Co Q-10] 100 mg PO DAILY 05/26/20 05/26/20 History diclofenac potassium 50 mg PO BID 05/26/20 05/26/20 History fluticasone propionate 1 spray INTRANASAL DAILY 05/26/20 05/26/20 History lisinopril 20 mg PO DAILY 05/26/20 05/26/20 History magnesium 1 tab PO DAILY 05/26/20 05/26/20 History tamsulosin 0.4 mg PO DAILY 05/26/20 05/26/20 History trimethoprim 1 tab PO DAILY 05/26/20 05/26/20 History vitamin B complex 1 cap PO DAILY 05/26/20 05/26/20 History vitamin L88-[id number] acid 100 mcg PO DAILY 05/26/20 05/26/20 History Azo Bladder Control 05/29/20 History Xtandi mg PO 05/29/20 History amlodipine 1 tab PO DAILY 05/29/20 05/29/20 History ipratropium-albuterol 1 amp INHALATION Q6H 05/29/20 05/29/20 History Physical Exam Vital Signs and I&O: Vital Signs Temp 98.8 F 05/30/20 07:54 Pulse 114 H 05/30/20 09:43 Resp 20 05/30/20 07:54 BP 135/62 05/30/20 09:43 Pulse Ox 97 05/30/20 07:54 Intake & Output 05/29/20 05/30/20 05/30/20 18:59 06:59 18:59 Intake Total 400 / 2450 2049 956.667 / 956.667 Output Total 275 / 2275 1999 Balance 125 / 175 50 / 175 956.667 / 956.667 Urine Output (Average ml/kg/hr) 0.32 2.30 2.30 Intake: Intake, Oral Amount 400 / 400 Intake, IV Amount 2049 956.667 / 956.667 cefTRIAXone sodium 1 gm In 0.9 50 / 50 % Sodium Chloride 50 ml @ 100 mls/hr IV Q24H [facility] Rx#: [id number] 0.9 % Sodium Chloride 1,000 ml 1000 / 1000 @ 999 mls/hr IVCONT .Q1H1M ONE Rx#:[id number] Lactated Ringers 1,000 ml @ 100 1000 / 1000 956.667 / 956.667 mls/hr IVCONT .Q10H [facility] Rx#: [id number] Output: Output, Urine Amount 275 / 275 Output, Urine Amount (Catheter) 1999 2-way Urethral 1999 Other: NPO Yes Urine Urinal Urine Color small clot Body Mass Index 25.0 Const General: cooperative, comfortable and no acute distress Orientation/consciousness: oriented to person, oriented to place and oriented to time Limitations: No language barrier HENMT Head: Yes normal to inspection Eyes General: appearance normal, both eyes and all related structures Neck Neck: Yes normal visual inspection and Yes full ROM Chest Chest palpation & inspection: normal inspection of the chest Resp Effort & Inspection: normal respiratory effort Cardio Jugular venous distension: no JVD Heart sounds: S1 normal heart sound present and S2 normal heart sound present GI Inspection: Yes normal to inspection Testes: other (givens in place) Skin General skin exam: no rashes or lesions noted Neuro General: oriented to person, oriented to place and oriented to time Psych Appearance: grossly normal Results Lab Results Result Diagrams: 05/30/20 05:26 05/30/20 05:26 Lab results: Chemistry 05/29/20 05/29/20 05/29/20 19:15 19:15 19:15 WBC 8.9 RBC 2.73 L Hgb 7.9 L Hct 26.3 L MCV 96.3 MCH 28.9 MCHC 30.0 L RDW 15.6 Plt Count 348 MPV 9.3 L Immature Gran % (Auto) 0.3 Neut % (Auto) 96.1 H Lymph % (Auto) 2.9 L [place] % (Auto) 0.4 L Eos % (Auto) 0.2 Baso % (Auto) 0.1 Neut # (Auto) 8.5 H Lymph # (Auto) 0.3 L [place] # (Auto) 0.0 L Eos # (Auto) 0.0 Baso # (Auto) 0.0 Abs Immat Gran (auto) 0.03 Absolute Nucleated RBC 0.000 Nucleated RBC % (auto) 0.0 Smear Tech's Comments VERIFIED Sodium 141 Potassium 4.6 Chloride 109 H Carbon Dioxide 23 Anion Gap 14 BUN 29 H Creatinine 1.82 H Estim Creat Clear Calc 32.7 Estimated GFR 36 Random Glucose 96 Lactic Acid Calcium 8.5 Lactate Dehydrogenase 153 C-Reactive Protein 6.17 H Procalcitonin 0.48 05/29/20 05/30/20 05/30/20 22:05 05:26 05:26 WBC 29.8 H RBC 2.59 L Hgb 7.7 L Hct 25.0 L MCV 96.5 MCH 29.7 MCHC 30.8 L RDW 15.7 Plt Count 353 MPV 9.8 Immature Gran % (Auto) 1.1 H Neut % (Auto) 95.6 H Lymph % (Auto) 0.6 L [place] % (Auto) 2.5 Eos % (Auto) 0.0 Baso % (Auto) 0.2 Neut # (Auto) 28.5 H Lymph # (Auto) 0.2 L [place] # (Auto) 0.7 Eos # (Auto) 0.0 Baso # (Auto) 0.1 Abs Immat Gran (auto) 0.34 H Absolute Nucleated RBC 0.000 Nucleated RBC % (auto) 0.0 Smear Tech's Comments VERIFIED Sodium 142 Potassium 4.4 Chloride 109 H Carbon Dioxide 24 Anion Gap 13 BUN 26 H Creatinine 1.79 H Estim Creat Clear Calc 33.3 Estimated GFR 37 Random Glucose 122 H Lactic Acid 1.8 Calcium 7.9 L Lactate Dehydrogenase C-Reactive Protein Procalcitonin Hematology 05/29/20 05/30/20 19:15 05:26 WBC 8.9 29.8 H Hgb 7.9 L 7.7 L Plt Count 348 353 Laboratory Tests 04/11/20 05/29/20 05/30/20 17:06 19:15 05:26 Creatinine 1.67 H 1.82 H 1.79 H Assessment and Plan (1) PVD (peripheral vascular disease): Status: Acute (2) HTN (hypertension): Status: Acute (3) Prostate cancer: Status: Acute (4) COPD (chronic obstructive pulmonary disease): Status: Acute (5) Anemia: Status: Acute (6) CKD (chronic kidney disease): Status: Acute (7) UTI (urinary tract infection): Status: Acute (8) Sepsis: Status: Acute 1. DARYL: Scr slt incr form bsl ..not unexpected form SIRS/UTI 2. CKD 3: bsl SCr 1.5 range 3. Prostate Ca 4. 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
[2020-05-30] MEDS: Metoprolol Tartrate 5 MG/5 ML VIAL IVPUSH (11:47)
--- NOTE | 2020-05-30 14:29 | HO.PM.IMPN ---
Subjective Subjective Date of Service: 05/30/20 Interval History: 74-year-old gentleman admitted to [facility] since after undergoing bilateral ureteral stent removal patient developed tachycardia fever and tachypnea patient was diagnosed to have sepsis related to acute pyelonephritis patient was treated in OR with gentamicin subsequently received Rocephin. Today patient complaining of back pain that he admits to be chronic therefore he cannot lie flat therefore patient was changed to a sitting position his back pain improved patient complaining of mild shortness of breath and palpitations, denies fever, chills, after being on chair for few hours patient became tired appeared more lethargic therefore placed back on bed, tele monitor continued to show tachycardia with a heart rate in 130-170 range Review of Systems General no headache no dizziness no fever. CVS no chest pain, positive palpitation. Respiratory complaining of shortness of breath, no orthopnea, no PND. Gastroenterology no nausea no vomiting. Physical Exam Vital Signs and I&O and Narrative: Vital Signs and I&O: Vital Signs Temp 97.5 F 05/30/20 11:34 Pulse 138 H 05/30/20 12:51 Resp 22 H 05/30/20 11:34 BP 91/43 L 05/30/20 12:51 Pulse Ox 97 05/30/20 08:00 Intake & Output 05/29/20 05/30/20 05/30/20 18:59 06:59 18:59 Intake Total 400 / 2450 2049 2673.334 / 2673.33 4 Output Total 275 / 2275 2000 / 2275 500 / 500 Balance 125 / 175 50 / 175 2173.334 / 2173.33 4 Urine Output (Aver age ml/kg/hr) 0.32 2.30 0.57 Intake: Intake, Oral [place] unt 400 / 400 330 / 330 Intake, IV Amoun t 2049 2343.334 / 2343.33 4 Acetaminophen 1,000 mg In 100 100 / 100 ml @ 400 mls/h r IV ONCE ONE Rx# :[id number] Gentamicin Sul fate/NaCl 80 mg 100 / 100 In 100 ml @ 10 0 mls/hr IV ONCE ONE Rx#:[id number] cefTRIAXone so dium 1 gm In 0.9 50 / 50 % Sodium Chlor ilda 50 ml @ 100 mls/hr IV Q24H [facility] Rx#: [id number] 0.9 % Sodium C hloride 1,000 ml 1000 / 1000 @ 999 mls/hr I VCONT .Q1H1M ONE Rx#:[id number] Lactated Ringe rs 1,000 ml @ 100 1000 / 1000 2143.334 / 2143.33 4 mls/hr IVCONT .Q10H [facility] Rx#: [id number] Output: Output, Urine Am ount 275 / 275 500 / 500 Output, Urine Am ount (Catheter) 1999 2-way Urethral 1999 Other: NPO Yes Lunch % Eaten 100% Urine Urinal Urine Color small clot Body Mass Index 25.0 General patient in bed appears lethargic,slow to response and fatigued neck is supple no JVD lungs diminished breath sounds with few rhonchi, no crackles heart tachy irregular gastrointestinal abdomen obese soft nontender, no guarding no rigidity extremities no clubbing cyanosis or edema skin pale, no rash neuro nonfocal speech clear Woods in place Objective Data Current Medications Generic Name Dose Route Start Last Admin Trade Name Miguel Aq PRN Reason Stop Dose Admin Acetaminophen 650 mg 05/29/20 15:01 Acetaminophen 325 Mg Tablet PO ONCE PRN Pain, Mild (Pain Scale 1-3) Albuterol Sulfate 2.5 mg 05/29/20 10:27 05/29/20 21:54 Albuterol Sulfate (0.083%) 2.5 Mg/3 Ml Vial.Neb INHALE 2.5 mg ONCE PRN Administration Shortness of Breath/Wheezing Albuterol/Ipratropium 3 ml 05/30/20 12:00 05/30/20 11:06 Albuterol/Iprat 2.5/0.5mg 3 Ml Ampul.Neb INHALE 3 ml RQ6H [facility] Administration Amlodipine Besylate 10 mg 05/30/20 09:00 05/30/20 09:43 Amlodipine Besylate 10 Mg Tablet PO 10 mg DAILY [facility] Administration Protocol Aspirin 81 mg 05/30/20 09:00 05/30/20 09:43 Aspirin 81 Mg Tab.Chew PO 81 mg DAILY [facility] Administration Cilostazol 50 mg 05/29/20 21:59 05/30/20 09:43 Cilostazol 50 Mg Tablet PO 50 mg BID [facility] Administration Meropenem 1 gm/ Sodium 100 mls @ 200 mls/hr 05/30/20 12:00 05/30/20 14:07 Chloride IV 200 mls/hr Q12H [facility] Administration Lisinopril 20 mg 05/30/20 09:00 05/30/20 09:43 Lisinopril 20 Mg Tablet PO 20 mg DAILY [facility] Administration Protocol Non-Formulary Medication 60 mg 05/30/20 09:00 Apalutamide PO DAILY [facility] Ondansetron HCl 4 mg 05/29/20 17:30 05/29/20 18:01 Ondansetron Hcl 4 Mg/2 Ml Vial IVPUSH 4 mg Q8H PRN Administration Nausea Sodium Chloride 2 ml 05/30/20 00:00 05/30/20 09:43 0.9 % Sodium Chloride Flush 3 Ml Syringe IVFLUSH 2 ml QSHIFT [facility] Administration Tamsulosin HCl 0.4 mg 05/30/20 17:30 Tamsulosin Hcl 0.4 Mg Capsule PO DAILY@1730 [facility] Labs CBC & Chem 7: 05/30/20 05:26 05/30/20 05:26 Labs: Laboratory Results - last 24 hr 05/29/20 05/29/20 05/29/20 19:15 19:15 19:15 MCV 96.3 MCH 28.9 MCHC 30.0 L RDW 15.6 Plt Count 348 MPV 9.3 L Immature Gran % (Auto) 0.3 Neut % (Auto) 96.1 H Lymph % (Auto) 2.9 L [place] % (Auto) 0.4 L Eos % (Auto) 0.2 Baso % (Auto) 0.1 Neut # (Auto) 8.5 H Lymph # (Auto) 0.3 L [place] # (Auto) 0.0 L Eos # (Auto) 0.0 Baso # (Auto) 0.0 Abs Immat Gran (auto) 0.03 Absolute Nucleated RBC 0.000 Nucleated RBC % (auto) 0.0 Smear Tech's Comments VERIFIED Anion Gap 14 Estim Creat Clear Calc 32.7 Estimated GFR 36 Random Glucose 96 Lactic Acid Calcium 8.5 Lactate Dehydrogenase 153 C-Reactive Protein 6.17 H Procalcitonin 0.48 05/29/20 05/30/20 05/30/20 22:05 05:26 05:26 MCV 96.5 MCH 29.7 MCHC 30.8 L RDW 15.7 Plt Count 353 MPV 9.8 Immature Gran % (Auto) 1.1 H Neut % (Auto) 95.6 H Lymph % (Auto) 0.6 L [place] % (Auto) 2.5 Eos % (Auto) 0.0 Baso % (Auto) 0.2 Neut # (Auto) 28.5 H Lymph # (Auto) 0.2 L [place] # (Auto) 0.7 Eos # (Auto) 0.0 Baso # (Auto) 0.1 Abs Immat Gran (auto) 0.34 H Absolute Nucleated RBC 0.000 Nucleated RBC % (auto) 0.0 Smear Tech's Comments VERIFIED Anion Gap 13 Estim Creat Clear Calc 33.3 Estimated GFR 37 Random Glucose 122 H Lactic Acid 1.8 Calcium 7.9 L Lactate Dehydrogenase C-Reactive Protein Procalcitonin Assessment and Plan (1) Sepsis: Status: Acute (2) UTI (urinary tract infection): Status: Acute (3) Anemia: Status: Acute (4) Atrial fibrillation with rapid ventricular response: Status: Acute (5) HTN (hypertension): Status: Acute (6) Prostate cancer: Status: Acute (7) CKD (chronic kidney disease): Status: Acute (8) Acute kidney injury superimposed on chronic kidney disease: Status: Acute Assessment and Plan: 74-year-old gentleman with past medical history significant for prostate cancer locally advanced with bone metastasis, history of chronic kidney disease stage 3, history of paroxysmal atrial fibrillation not on anticoagulation, history of squamous cell carcinoma was admitted for an elective urological procedure with Dr. Bear for bilateral ureteral stent removal after the procedure patient was noted to be tachypneic tachycardic febrile therefore admitted to intermediate care unit with a diagnosis of sepsis related to urinary tract infection with acute on chronic kidney disease this morning patient noted to be in atrial fibrillation with rapid rather rare ventricular response patient treated with IV Lopressor with transient improvement and ventricular rate but noted to have drop in blood pressure patient initially was more awake alert with persistent tachycardia patient became more lethargic placed back on bed IV digoxin given since blood pressure remained low 94/48 case discussed with neonatal critical care nurse and patient is now being discharged to intensive care unit for higher level of care. Atrial fibrillation with RVR patient at home is not on rate-controlling medication or anti coagulation patient does have history of atrial fibrillation patient heart rate remains in 160 to 170 range status post couple dosages of Lopressor noted to have low blood pressure therefore digoxin 0.25 mg has been administered due to persistent low blood pressure , change in mental status with lethargy and slow to respond , tachycardia with underlying sepsis patient is being transferred to intensive care unit. sepsis due to urinary tract infection antibiotic changed to IV meropenem renally dose follow urine and blood culture acute on chronic kidney disease stage III IV fluid held due to concern for heart failure will avoid nephrotoxic medications and hypotension follow blood pressure closely. Acute on chronic anemia question history of anemia of related to kidney disease prior B12 and folate , no prior iron studies noted patient had hematuria earlier in the morning likely contributing to anemia CBC needs to be followed closely with blood transfusion
[2020-05-30] MEDS: Digoxin 0.5 MG/2 ML AMPUL 0.25 MG IVPUSH (15:01)
--- NOTE | 2020-05-30 16:02 | P.CNID_ITS ---
History of Present Illness Data of Consult Service Date: 05/30/20 Primary Care Provider: Froilan Ford, [facility] He presents to hospital with fever and chills for a day He has temperature to 101 as well as heart rate 111-115 He has no abdominal discomfort that he can elucidate He has blood culture pending and urine culture Review of Systems Review of Systems: Yes Unobtainable due to mental condition PMFSH Past Medical History Medical History Arthritis Asthma Back pain COPD (chronic obstructive pulmonary disease) HTN (hypertension) Hypogonadism Hypothyroid Kidney stone Prostate cancer PVD (peripheral vascular disease) Functional capacity: independent ambulation Family History Family history: reviewed and not pertinent Surgical History Surgical History H/O hernia repair History of colonoscopy History of esophagogastroduodenoscopy (EGD) History of prostate surgery Social History Social History Smoking Status: Former smoker Use of substances other than those prescribed or required for medical reasons: No Have you been hit, kicked, punched, or otherwise hurt by someone within the past year? If so, by whom?: No Advance Directives: No Advance Directives Information Provided: Yes Advance Directives on File: No Recently lost weight without trying: No service: No Current occupational status: retired Meds Allergies Allergy/AdvReac Type Severity Reaction Status Date / Time oxycodone [OXYCODONE] Allergy Severe VOMITING, Unverified 05/11/20 14:53 very ill garlic [GARLIC] Allergy Intermediate N/V Unverified 05/11/20 14:53 povidone-iodine Allergy Intermediate RASH Unverified 05/11/20 14:53 [From BETADINE] tramadol [TRAMADOL] Allergy Intermediate GI UPSET, Unverified 05/11/20 14:53 stomach upset diclofenac [DICLOFENAC] Allergy Unknown UNKNOWN Unverified 05/11/20 14:53 finasteride [FINASTERIDE] Allergy Unknown UNKNOWN Unverified 05/11/20 14:53 gabapentin Allergy Unknown Verified 02/01/20 00:00 leuprolide [LEUPROLIDE] Allergy Unknown UNKNOWN Unverified 05/11/20 14:53 naproxen [NAPROXEN] Allergy Unknown UNKNOWN Unverified 05/11/20 14:53 onions Allergy Unknown diarrhea Unverified 02/01/20 00:00 prednisone [PREDNISONE] Allergy Unknown UNKNOWN Unverified 05/11/20 14:53 soap [Betadine] Allergy Unknown Verified 02/01/20 00:00 onion [Onion] AdvReac Intermediate DIARRHEA Unverified 05/11/20 14:53 solifenacin [From VESICARE] AdvReac Intermediate DIZZINESS,N Unverified 05/11/20 14:53 AUSEA cephalexin AdvReac Unknown Verified 02/01/20 00:00 garlic Allergy Unknown diarrhea Uncoded 01/19/20 00:00 vitamin c Allergy Unknown severe Uncoded 01/19/20 00:00 heartburn Home Medications Medication Instructions Recorded Confirmed Type Phenylephrine CM 10 mg DAILY 05/26/20 05/26/20 History Vitamin D3 1 cap PO DAILY 05/26/20 05/26/20 History acetaminophen [Tylenol] 650 mg PO Q6H PRN 05/26/20 05/26/20 History albuterol sulfate 2 puff PO Q6H PRN 05/26/20 05/26/20 History apalutamide 60 mg PO DAILY 05/26/20 05/26/20 History aspirin 81 mg PO DAILY 05/26/20 05/26/20 History cilostazol 50 mg PO BID 05/26/20 05/26/20 History coenzyme Q10 [Co Q-10] 100 mg PO DAILY 05/26/20 05/26/20 History diclofenac potassium 50 mg PO BID 05/26/20 05/26/20 History fluticasone propionate 1 spray INTRANASAL DAILY 05/26/20 05/26/20 History lisinopril 20 mg PO DAILY 05/26/20 05/26/20 History magnesium 1 tab PO DAILY 05/26/20 05/26/20 History tamsulosin 0.4 mg PO DAILY 05/26/20 05/26/20 History vitamin P26-wcnvl acid 100 mcg PO DAILY 05/26/20 05/26/20 History Xtandi 40 mg PO 05/29/20 History amlodipine 10 mg PO DAILY 05/29/20 05/30/20 History ipratropium-albuterol 1 amp INHALATION Q6H 05/29/20 05/29/20 History vitamin B complex 1 tab PO DAILY 05/30/20 05/30/20 History Physical Exam Vital Signs and I&O and Narrative: Vital Signs and I&O: Vital Signs Temp 99.7 F 05/30/20 15:43 Pulse 78 05/30/20 15:43 Resp 22 H 05/30/20 15:43 BP 108/60 05/30/20 15:43 Pulse Ox 97 05/30/20 15:43 Intake & Output 05/29/20 05/30/20 05/30/20 18:59 06:59 18:59 Intake Total 400 / 2450 2049 2773.334 / 2773.33 4 Output Total 275 / 2275 1999 500 / 500 Balance 125 / 175 50 / 175 2273.334 / 2273.33 4 Urine Output (Aver age ml/kg/hr) 0.32 2.30 0.57 Intake: Intake, Oral [place] unt 400 / 400 330 / 330 Intake, IV Amoun t 2049 2443.334 / 2443.33 4 Acetaminophen 1,000 mg In 100 100 / 100 ml @ 400 mls/h r IV ONCE ONE Rx# :[id number] Gentamicin Sul fate/NaCl 80 mg 100 / 100 In 100 ml @ 10 0 mls/hr IV ONCE ONE Rx#:[id number] Meropenem 1 gm In 0.9 % Sodium 100 / 100 Chloride 100 m l @ 200 mls/hr IV Q12H [facility] Rx#:[id number] cefTRIAXone so dium 1 gm In 0.9 50 / 50 % Sodium Chlor ilda 50 ml @ 100 mls/hr IV Q24H [facility] Rx#: [id number] 0.9 % Sodium C hloride 1,000 ml 1000 / 1000 @ 999 mls/hr I VCONT .Q1H1M ONE Rx#:[id number] Lactated Ringe rs 1,000 ml @ 100 1000 / 1000 2143.334 / 2143.33 4 mls/hr IVCONT .Q10H [facility] Rx#: [id number] Output: Output, Urine Am ount 275 / 275 500 / 500 Output, Urine Am ount (Catheter) 1999 2-way Urethral 1999 Other: NPO Yes Lunch % Eaten 100% Urine Urinal Urine Color small clot Body Mass Index 25.0 Const: General: cooperative HENMT: Head: Yes normal to inspection Eyes: General: appearance normal, both eyes and all related structures Resp: Effort & Inspection: normal respiratory effort Cardio: Rate: regular rate Rhythm: regular rhythm GI: Inspection: Yes normal to inspection Palpation (GI): Soft to palpation and Tenderness to palpation present (GI) (flank pain) Percussion: Yes bilateral flank dullness Skin: General skin exam: no rashes or lesions noted Assessment and Plan (1) Acute kidney injury superimposed on chronic kidney disease: Problem details: May be related to prostate cancer,illness dehydration Status: Acute (2) Sepsis: Problem details: His source is urinary,possible resistant E coli He meets sepsis criteria Status: Acute Would continue Merem Await cultures
[2020-05-30] MEDS: Phenylephrine HCL 20 MG in 0.9 % Sodium Chloride 250 ML 10.97 MG IVCONT (16:15)
[2020-05-30] MEDS: dilTIAZem HCL 25 MG/5 ML VIAL 20 MG IVPUSH (16:30)
[2020-05-30] MEDS: dilTIAZem HCL 125 MG in 0.9 % Sodium Chloride 100 ML IVCONT (16:45)
--- NOTE | 2020-05-30 17:04 | XR_ITS ---
EXAMINATION: XR CHEST CLINICAL INFORMATION: Line placement. COMPARISON: Film taken earlier today. TECHNIQUE: Frontal view of the chest was obtained. FINDINGS: Since the prior exam, a left IJ catheter has been placed and its tip is against the lateral wall of the SVC near the junction with the innominate vein. If for any reason aspiration is a problem with this line, a deep inspiration would probably help. Again seen is normal-sized heart, left apical mass, surgical clips at the right lung apex, bibasilar atelectasis, chronic healed right rib fractures and chronic calcifications right humerus possibly secondary to old infarct or enchondroma. IMPRESSION: Left IJ line placed without complication. Tip against the lateral wall of the proximal SVC.
--- NOTE | 2020-05-30 17:07 | PC.NURSE ---
CONTINUED ELEVATED HEART RATE FROM 120'S-170'S.PT WITH SOME NOTED SOB BUT DENIED COMPLAINTS. INITALLY PT C/O BACK DISCOMFORT AND FEELING RESTLESS IN THE BED. HOSPITALIST AT BEDSIDE FOR AM ROUNDS. PT WASHED UP IN BED AND ASSISTED INTO RECLINER. NO CHANGE IN HR. METOPROLOL 5 MG IV STAT ORDERED. IV FLUIDS DC. STAT PCXR AND EKG ALSO ORDERED. EKG SHOWING AFIB WITH RVR. RHYTHM PREVIOUSLY THOUGH TO BE SINUS TACH WITH FREQUENT PACS/ATRITAL TACHYCARDIA. BLOOD PRESSURE ALSO DROPPED AFTER METOPROLOL TO LOW 90'S SYSTOLIC. CARDIO CONSULTED AND NOTIFIED VIA TIGER TEXT.PT MENTATION NOTED TO CHANGE AND BECOME MORE LETHARGIC. 0.25 MG OF IV DIGOXIN ORDERED AND GIVEN. PLAN FOR TRANSFER TO ICU.
--- NOTE | 2020-05-30 17:14 | PM.CCPN ---
Physical Exam Vital Signs and I&O and Narrative: Vital Signs and I&O: Vital Signs Temp 99.7 F 05/30/20 15:43 Pulse 170 H 05/30/20 16:30 Resp 22 H 05/30/20 15:43 BP 109/47 L 05/30/20 16:30 Pulse Ox 97 05/30/20 15:43 Intake & Output 05/29/20 05/30/20 05/30/20 18:59 06:59 18:59 Intake Total 400 / 2450 2049 2787.505 / 2787.50 5 Output Total 275 / 2275 1999 500 / 500 Balance 125 / 175 50 / 175 2287.505 / 2287.50 5 Urine Output (Aver age ml/kg/hr) 0.32 2.30 0.57 Intake: Intake, Oral [place] unt 400 / 400 330 / 330 Intake, IV Amoun t 2049 2457.505 / 2457.50 5 Acetaminophen 1,000 mg In 100 100 / 100 ml @ 400 mls/h r IV ONCE ONE Rx# :[id number] Gentamicin Sul fate/NaCl 80 mg 100 / 100 In 100 ml @ 10 0 mls/hr IV ONCE ONE Rx#:[id number] Meropenem 1 gm In 0.9 % Sodium 100 / 100 Chloride 100 m l @ 200 mls/hr IV Q12H [facility] Rx#:[id number] cefTRIAXone so dium 1 gm In 0.9 50 / 50 % Sodium Chlor ilda 50 ml @ 100 mls/hr IV Q24H [facility] Rx#: [id number] 0.9 % Sodium C hloride 1,000 ml 1000 / 1000 @ 999 mls/hr I VCONT .Q1H1M ONE Rx#:[id number] Lactated Ringe rs 1,000 ml @ 100 1000 / 1000 2143.334 / 2143.33 4 mls/hr IVCONT .Q10H [facility] Rx#: [id number] Phenylephrine HCL 20 mg In 0.9 14.171 / 14.171 % Sodium Chlor ilda 250 ml @ Per Protocol IVCON T .Q0M [facility] Rx#: [id number] Output: Output, Urine Am ount 275 / 275 500 / 500 Output, Urine Am ount (Catheter) 1999 2-way Urethral 1999 Other: NPO Yes Lunch % Eaten 100% Urine Urinal Urine Color small clot Body Mass Index 25.0 Objective Data Labs CBC & Chem 7: 05/30/20 05:26 05/30/20 05:26 Labs: Laboratory Results - last 24 hr 05/29/20 05/29/20 05/29/20 19:15 19:15 19:15 WBC 8.9 RBC 2.73 L Hgb 7.9 L Hct 26.3 L MCV 96.3 MCH 28.9 MCHC 30.0 L RDW 15.6 Plt Count 348 MPV 9.3 L Immature Gran % (Auto) 0.3 Neut % (Auto) 96.1 H Lymph % (Auto) 2.9 L [place] % (Auto) 0.4 L Eos % (Auto) 0.2 Baso % (Auto) 0.1 Neut # (Auto) 8.5 H Lymph # (Auto) 0.3 L [place] # (Auto) 0.0 L Eos # (Auto) 0.0 Baso # (Auto) 0.0 Abs Immat Gran (auto) 0.03 Absolute Nucleated RBC 0.000 Nucleated RBC % (auto) 0.0 Smear Tech's Comments VERIFIED Sodium 141 Potassium 4.6 Chloride 109 H Carbon Dioxide 23 Anion Gap 14 BUN 29 H Creatinine 1.82 H Estim Creat Clear Calc 32.7 Estimated GFR 36 Random Glucose 96 Lactic Acid Calcium 8.5 Lactate Dehydrogenase 153 C-Reactive Protein 6.17 H Procalcitonin 0.48 05/29/20 05/30/20 05/30/20 22:05 05:26 05:26 WBC 29.8 H RBC 2.59 L Hgb 7.7 L Hct 25.0 L MCV 96.5 MCH 29.7 MCHC 30.8 L RDW 15.7 Plt Count 353 MPV 9.8 Immature Gran % (Auto) 1.1 H Neut % (Auto) 95.6 H Lymph % (Auto) 0.6 L [place] % (Auto) 2.5 Eos % (Auto) 0.0 Baso % (Auto) 0.2 Neut # (Auto) 28.5 H Lymph # (Auto) 0.2 L [place] # (Auto) 0.7 Eos # (Auto) 0.0 Baso # (Auto) 0.1 Abs Immat Gran (auto) 0.34 H Absolute Nucleated RBC 0.000 Nucleated RBC % (auto) 0.0 Smear Tech's Comments VERIFIED Sodium 142 Potassium 4.4 Chloride 109 H Carbon Dioxide 24 Anion Gap 13 BUN 26 H Creatinine 1.79 H Estim Creat Clear Calc 33.3 Estimated GFR 37 Random Glucose 122 H Lactic Acid 1.8 Calcium 7.9 L Lactate Dehydrogenase C-Reactive Protein Procalcitonin Progress Note: A&P Time Spent With Patient Time: Total time spent is greater than 50% in coordination of care (as documented) at patient's floor/unit and/or counseling patient: Time with patient: 25 - 35 minutes
--- NOTE | 2020-05-30 17:15 | P.CONCC_ITS ---
History of Present Illness Data of Consult Service Date: 05/30/20 Requesting physician: Cayla Carrillo Primary Care Provider: LUIS F Camacho HPI Reason for consult: septic shock and multifocal atrial tachycardia with heart rates 180 74-year-old male with possible metastatic prostate carcinoma just undergoing exchange of stents bilaterally in the ureters shortly thereafter developed shaking chills [place] [address] and left shift and persistent recurrent episodes of multifocal atrial tachycardia with heart rates of 180 and hypotensive with altered mental status Review of Systems 2 Review of Systems: Yes Unobtainable due to mental status PMFSH Past Medical History Medical History Arthritis Asthma Back pain COPD (chronic obstructive pulmonary disease) HTN (hypertension) Hypogonadism Hypothyroid Kidney stone Prostate cancer PVD (peripheral vascular disease) Functional capacity: independent ambulation Family History Family history: reviewed and not pertinent Surgical History Surgical History H/O hernia repair History of colonoscopy History of esophagogastroduodenoscopy (EGD) History of prostate surgery Social History Social History Smoking Status: Former smoker Use of substances other than those prescribed or required for medical reasons: No Have you been hit, kicked, punched, or otherwise hurt by someone within the past year? If so, by whom?: No Advance Directives: No Advance Directives Information Provided: Yes Advance Directives on File: No Recently lost weight without trying: No service: No Current occupational status: retired Meds Allergies Allergy/AdvReac Type Severity Reaction Status Date / Time oxycodone [OXYCODONE] Allergy Severe VOMITING, Verified 05/30/20 17:08 very ill garlic [GARLIC] Allergy Intermediate N/V Verified 05/30/20 17:08 povidone-iodine Allergy Intermediate RASH Verified 05/30/20 17:08 [From BETADINE] tramadol [TRAMADOL] Allergy Intermediate GI UPSET, Verified 05/30/20 17:08 stomach upset diclofenac [DICLOFENAC] Allergy Unknown UNKNOWN Verified 05/30/20 17:08 finasteride [FINASTERIDE] Allergy Unknown UNKNOWN Verified 05/30/20 17:08 gabapentin Allergy Unknown Unknown Verified 05/30/20 17:08 leuprolide [LEUPROLIDE] Allergy Unknown UNKNOWN Verified 05/30/20 17:08 naproxen [NAPROXEN] Allergy Unknown UNKNOWN Verified 05/30/20 17:08 onions Allergy Unknown diarrhea Verified 05/30/20 17:08 prednisone [PREDNISONE] Allergy Unknown UNKNOWN Verified 05/30/20 17:08 soap [Betadine] Allergy Unknown Unknown Verified 05/30/20 17:08 onion [Onion] AdvReac Intermediate DIARRHEA Verified 05/30/20 17:08 solifenacin [From VESICARE] AdvReac Intermediate DIZZINESS,N Verified 05/30/20 17:08 AUSEA cephalexin AdvReac Unknown Unknown Verified 05/30/20 17:08 garlic Allergy Unknown diarrhea Uncoded 05/30/20 17:08 vitamin c Allergy Unknown severe Uncoded 05/30/20 17:08 heartburn Home Medications Medication Instructions Recorded Confirmed Type Phenylephrine CM 10 mg DAILY 05/26/20 05/26/20 History Vitamin D3 1 cap PO DAILY 05/26/20 05/26/20 History acetaminophen [Tylenol] 650 mg PO Q6H PRN 05/26/20 05/26/20 History albuterol sulfate 2 puff PO Q6H PRN 05/26/20 05/26/20 History apalutamide 60 mg PO DAILY 05/26/20 05/26/20 History aspirin 81 mg PO DAILY 05/26/20 05/26/20 History cilostazol 50 mg PO BID 05/26/20 05/26/20 History coenzyme Q10 [Co Q-10] 100 mg PO DAILY 05/26/20 05/26/20 History diclofenac potassium 50 mg PO BID 05/26/20 05/26/20 History fluticasone propionate 1 spray INTRANASAL DAILY 05/26/20 05/26/20 History lisinopril 20 mg PO DAILY 05/26/20 05/26/20 History magnesium 1 tab PO DAILY 05/26/20 05/26/20 History tamsulosin 0.4 mg PO DAILY 05/26/20 05/26/20 History vitamin V42-alhtv acid 100 mcg PO DAILY 05/26/20 05/26/20 History Xtandi 40 mg PO 05/29/20 History amlodipine 10 mg PO DAILY 05/29/20 05/30/20 History ipratropium-albuterol 1 amp INHALATION Q6H 05/29/20 05/29/20 History vitamin B complex 1 tab PO DAILY 05/30/20 05/30/20 History Physical Exam Vital Signs and I&O and Narrative: Vital Signs and I&O: Vital Signs Temp 99.7 F 05/30/20 15:43 Pulse 170 H 05/30/20 16:30 Resp 22 H 05/30/20 15:43 BP 109/47 L 05/30/20 16:30 Pulse Ox 97 05/30/20 15:43 Intake & Output 05/29/20 05/30/20 05/30/20 18:59 06:59 18:59 Intake Total 400 / 2450 2049 2787.505 / 2787.50 5 Output Total 275 / 2275 2000 / 2275 500 / 500 Balance 125 / 175 50 / 175 2287.505 / 2287.50 5 Urine Output (Aver age ml/kg/hr) 0.32 2.30 0.57 Intake: Intake, Oral Alej[place] unt 400 / 400 330 / 330 Intake, IV Amoun t 2049 2457.505 / 2457.50 5 Acetaminophen 1,000 mg In 100 100 / 100 ml @ 400 mls/h r IV ONCE ONE Rx# :[id number] Gentamicin Sul fate/NaCl 80 mg 100 / 100 In 100 ml @ 10 0 mls/hr IV ONCE ONE Rx#:[id number] Meropenem 1 gm In 0.9 % Sodium 100 / 100 Chloride 100 m l @ 200 mls/hr IV Q12H [facility] Rx#:[id number] cefTRIAXone so dium 1 gm In 0.9 50 / 50 % Sodium Chlor ilda 50 ml @ 100 mls/hr IV Q24H [facility] Rx#: [id number] 0.9 % Sodium C hloride 1,000 ml 1000 / 1000 @ 999 mls/hr I VCONT .Q1H1M ONE Rx#:[id number] Lactated Ringe rs 1,000 ml @ 100 1000 / 1000 2143.334 / 2143.33 4 mls/hr IVCONT .Q10H [facility] Rx#: [id number] Phenylephrine HCL 20 mg In 0.9 14.171 / 14.171 % Sodium Chlor ilda 250 ml @ Per Protocol IVCON T .Q0M [facility] Rx#: [id number] Output: Output, Urine Am ount 275 / 275 500 / 500 Output, Urine Am ount (Catheter) 1999 2-way Urethral 1999 Other: NPO Yes Lunch % Eaten 100% Urine Urinal Urine Color small clot Body Mass Index 25.0 lethargic but responsive with certain degree of pallor skin is intact with no decubiti I no cyanosis no clubbing neck is supple but the but neck veins are flat and they are flat on ultrasound as well chest is clear no adventitious sounds cardiac exam with normal S1 and normal S2 no gallops and no murmurs and bedside echo shows hyperdynamic heart with normal chamber sizes no primary valve or pericardial disease abdomen is soft not distended no organomegaly chest x-ray shows multiple old rib fractures on the right side possible left basilar atelectasis versus infiltrate and and a notable the left upper lobe mass EKG multifocal atrial tachycardia with rapid response and right bundle branch block with nonspecific ST-T changes lab work indicating acute on chronic stage III renal failure there is no negative lactate level and a borderline procalcitonin but drop in hemoglobin to 7.7 [place] [address] and left shift Results Labs CBC & Chem 7: 05/30/20 05:26 05/30/20 05:26 Labs: Short CBC 05/29/20 05/30/20 Range/Units 19:15 05:26 WBC 8.9 29.8 H (4.8-10.8) X10*3/uL Hgb 7.9 L 7.7 L (14.0-18.0) g/dl Hct 26.3 L 25.0 L (42-52) % Plt Count 348 353 (160-400) X10*3/uL BMP 05/29/20 05/30/20 19:15 05:26 Sodium 141 142 Potassium 4.6 4.4 Chloride 109 H 109 H Carbon Dioxide 23 24 BUN 29 H 26 H Creatinine 1.82 H 1.79 H Calcium 8.5 7.9 L Assessment and Plan (1) Acute kidney injury superimposed on chronic kidney disease: Problem details: December b clearly hypovolemic and awaiting CVP measurement to right fluid orderse related to prostate cancer,illness dehydration Status: Acute and utilizing andres synephrine for blood pressure support so as not to affect heart rate (2) Atrial fibrillation with rapid ventricular response: Status: Acute small stat dose of Cardizem with Cardizem drip for just modest heart rate control (3) PVD (peripheral vascular disease): Status: Acute (4) HTN (hypertension): Status: Acute (5) Prostate cancer: Status: Acute (6) COPD (chronic obstructive pulmonary disease): Status: Acute currently stable without active symptom (7) Anemia: Status: Acute with hemoglobin in the sevens with underlying COPD 1 unit transfusion might be called for to improve oxygen carrying capacity (8) CKD (chronic kidney disease): Status: Acute renal dysfunction remains undefined but clearly acutely contributed to by distributive shock as well as obstructive uropathy (9) UTI (urinary tract infection): Status: Acute (10) Sepsis: Problem details: His source is urinary,possible resistant E coli He meets sepsis criteria Status: Acute blood cultures will be done now as well as urine culture and empiric antibiotics to cover for his procedural issued and that will have to include gram-negative enteric says well as possible Staph (11) Multifocal atrial tachycardia: Status: Acute mild Cardizem just for gentle heart rate control (12) Hypotension: Status: Acute Andres-Synephrine titrated to mean arterial pressure of 65 and CVP monitoring keeping CVP at 5-10 mm mercury
[2020-05-30 18:24] LABS: Glucose Urine UA NEG (NEG); Leukocyte Esterase Urine 3+ (NEG); Nitrite Urine POS (NEG); Specific Gravity - Urine 1.015 (1.005-1.025); Urine Blood 3+ (NEG); Urine Ketones NEG (NEG); Urine Protein 2+ MG/DL (NEG-TRACE)
[2020-05-30 18:30] LABS: Appearance Urine CLOUDY; Color Urine YELLOW
[2020-05-30 18:32] LABS: Bacteria Urine 2+ /LPF; WBC Urine 30-49 /HPF (0-4)
[2020-05-30 18:33] LABS: Lactic Acid 0.7 mmol/L (0.5-2.0)
[2020-05-30] MEDS: vancomycin HCL 1,000 MG in 0.9 % Sodium Chloride 250 ML 270 MG IV (18:35)
--- NOTE | 2020-05-30 19:06 | PC.NURSE ---
[place] [facility] [place] PT LETHARGIC, BUT AROUSABLE. HR 160S ON TELE. SBP 90S. MANJINDER GTT AND CARDIZEN GTT STARTED. SEE DRUG TITRATION. PHARMACEUTICAL WEIGHT 70 KG FOR GTTS PER MD. TLC TO [facility] PLACED AND CONFIRMED WITH CXR. BC X 2 AND LACTIC DRAWN FROM [place] PER MD. VANCO X 1 ADMINISTERED.
--- NOTE | 2020-05-30 21:07 | P.CONCA_ITS ---
History of Present Illness History of Present Illness Date of Consult: May 30, 2020 Chief complaint: fever PMFSH Past Medical History Medical History Arthritis Asthma Back pain COPD (chronic obstructive pulmonary disease) HTN (hypertension) Hypogonadism Hypothyroid Kidney stone Prostate cancer PVD (peripheral vascular disease) Functional capacity: independent ambulation Family History Family history: reviewed and not pertinent Surgical History Surgical History H/O hernia repair History of colonoscopy History of esophagogastroduodenoscopy (EGD) History of prostate surgery Social History Social History Smoking Status: Former smoker Use of substances other than those prescribed or required for medical reasons: No Currently Displaying Signs/Symptoms of Drug Intoxication Withdrawal: No Have you been hit, kicked, punched, or otherwise hurt by someone within the past year? If so, by whom?: No Advance Directives: No Advance Directives Information Provided: Yes Advance Directives on File: No Do you have thoughts of harming others: None Recently lost weight without trying: No service: No Current occupational status: retired Meds Allergies Allergy/AdvReac Type Severity Reaction Status Date / Time oxycodone [OXYCODONE] Allergy Severe VOMITING, Verified 05/30/20 17:08 very ill garlic [GARLIC] Allergy Intermediate N/V Verified 05/30/20 17:08 povidone-iodine Allergy Intermediate RASH Verified 05/30/20 17:08 [From BETADINE] tramadol [TRAMADOL] Allergy Intermediate GI UPSET, Verified 05/30/20 17:08 stomach upset diclofenac [DICLOFENAC] Allergy Unknown UNKNOWN Verified 05/30/20 17:08 finasteride [FINASTERIDE] Allergy Unknown UNKNOWN Verified 05/30/20 17:08 gabapentin Allergy Unknown Unknown Verified 05/30/20 17:08 leuprolide [LEUPROLIDE] Allergy Unknown UNKNOWN Verified 05/30/20 17:08 naproxen [NAPROXEN] Allergy Unknown UNKNOWN Verified 05/30/20 17:08 onions Allergy Unknown diarrhea Verified 05/30/20 17:08 prednisone [PREDNISONE] Allergy Unknown UNKNOWN Verified 05/30/20 17:08 soap [Betadine] Allergy Unknown Unknown Verified 05/30/20 17:08 onion [Onion] AdvReac Intermediate DIARRHEA Verified 05/30/20 17:08 solifenacin [From VESICARE] AdvReac Intermediate DIZZINESS,N Verified 05/30/20 17:08 AUSEA cephalexin AdvReac Unknown Unknown Verified 05/30/20 17:08 garlic Allergy Unknown diarrhea Uncoded 05/30/20 17:08 vitamin c Allergy Unknown severe Uncoded 05/30/20 17:08 heartburn Home Medications Medication Instructions Recorded Confirmed Type Phenylephrine CM 10 mg DAILY 05/26/20 05/26/20 History Vitamin D3 1 cap PO DAILY 05/26/20 05/26/20 History acetaminophen [Tylenol] 650 mg PO Q6H PRN 05/26/20 05/26/20 History albuterol sulfate 2 puff PO Q6H PRN 05/26/20 05/26/20 History aspirin 81 mg PO DAILY 05/26/20 05/26/20 History fluticasone propionate 1 spray INTRANASAL DAILY 05/26/20 05/26/20 History tamsulosin 0.4 mg PO DAILY 05/26/20 05/26/20 History vitamin O02-oszmq acid 100 mcg PO DAILY 05/26/20 05/26/20 History Xtandi 40 mg PO DAILY 05/29/20 05/30/20 History amlodipine 10 mg PO DAILY 05/29/20 05/30/20 History ipratropium-albuterol 1 amp INHALATION Q6H 05/29/20 05/29/20 History bisacodyl 5 mg PO BEDTIME 05/30/20 05/30/20 History docusate sodium 100 mg PO DAILY 05/30/20 05/30/20 History fluticasone furoate-vilanterol 1 inh INHALATION DAILY 05/30/20 05/30/20 History [Breo Ellipta] furosemide 20 mg PO QAM 05/30/20 05/30/20 History hydromorphone 2 mg PO Q6H PRN 05/30/20 05/30/20 History multivitamin 1 tab PO DAILY 05/30/20 05/30/20 History prochlorperazine maleate 5 mg PO QID PRN 05/30/20 05/30/20 History vitamin B complex 1 tab PO DAILY 05/30/20 05/30/20 History Physical Exam Vital Signs and I&O and Narrative: Vital Signs and I&O: Vital Signs Temp 99.0 F 05/30/20 20:06 Pulse 131 H 05/30/20 21:00 Resp 19 05/30/20 21:00 BP 104/50 L 05/30/20 21:00 Pulse Ox 98 05/30/20 21:00 Intake & Output 05/30/20 05/30/20 05/31/20 06:59 18:59 06:59 Intake Total 2049 2806.405 / 3051.40 5 245 / 3051.405 Output Total 1999 625 / 795 170 / 795 Balance 50 / 175 2181.405 / 2256.40 5 75 / 2256.405 Urine Output (Aver age ml/kg/hr) 2.30 0.72 0.20 Intake: Intake, Oral [place] unt 330 / 330 0 / 330 Intake, IV Amoun t 2049 2476.405 / 2721.40 5 245 / 2721.405 Acetaminophen 1,000 mg In 100 100 / 100 ml @ 400 mls/h r IV ONCE ONE Rx# :[id number] Gentamicin Sul fate/NaCl 80 mg 100 / 100 In 100 ml @ 10 0 mls/hr IV ONCE ONE Rx#:[id number] Meropenem 1 gm In 0.9 % Sodium 100 / 100 Chloride 100 m l @ 200 mls/hr IV Q12H [facility] Rx#:[id number] cefTRIAXone so dium 1 gm In 0.9 50 / 50 % Sodium Chlor ilda 50 ml @ 100 mls/hr IV Q24H [facility] Rx#: [id number] vancomycin HCL 1,000 mg In 0.9 245 / 245 % Sodium Chlor ilda 250 ml @ 270 mls/hr IV ONCE ONE Rx#: [id number] 0.9 % Sodium C hloride 1,000 ml 1000 / 1000 @ 999 mls/hr I VCONT .Q1H1M ONE Rx#:[id number] Lactated Ringe rs 1,000 ml @ 100 1000 / 1000 2143.334 / 2143.33 4 mls/hr IVCONT .Q10H [facility] Rx#: [id number] Phenylephrine HCL 20 mg In 0.9 33.071 / 33.071 % Sodium Chlor ilda 250 ml @ Per Protocol IVCON T .Q0M [facility] Rx#: [id number] Output: Output, Urine Am ount 500 / 500 Output, Urine Am ount (Catheter) 1999 125 / 295 170 / 295 2-way Urethral 1999 125 / 295 170 / 295 Other: NPO Yes Lunch % Eaten 100% Urine Color Cloudy with Sedime nt Cloudy with Sedime nt Body Mass Index 25.0 Results Labs and Meds Result diagrams: 05/30/20 05:26 05/30/20 05:26 Lab results: Laboratory Tests 05/29/20 19:15 Creatinine 1.82 H Laboratory Results - last 24 hr 05/29/20 05/30/20 05/30/20 22:05 05:26 05:26 WBC 29.8 H RBC 2.59 L Hgb 7.7 L Hct 25.0 L MCV 96.5 MCH 29.7 MCHC 30.8 L RDW 15.7 Plt Count 353 MPV 9.8 Immature Gran % (Auto) 1.1 H Neut % (Auto) 95.6 H Lymph % (Auto) 0.6 L [place] % (Auto) 2.5 Eos % (Auto) 0.0 Baso % (Auto) 0.2 Neut # (Auto) 28.5 H Lymph # (Auto) 0.2 L [place] # (Auto) 0.7 Eos # (Auto) 0.0 Baso # (Auto) 0.1 Abs Immat Gran (auto) 0.34 H Absolute Nucleated RBC 0.000 Nucleated RBC % (auto) 0.0 Smear Tech's Comments VERIFIED Sodium 142 Potassium 4.4 Chloride 109 H Carbon Dioxide 24 Anion Gap 13 BUN 26 H Creatinine 1.79 H Estim Creat Clear Calc 33.3 Estimated GFR 37 Random Glucose 122 H Lactic Acid 1.8 Calcium 7.9 L Urine Color Urine Appearance Urine pH Ur Specific [place] Urine Protein Urine Glucose (UA) Urine Ketones Urine Blood Urine Nitrite Ur Leukocyte Esterase Urine RBC Urine WBC Ur Squamous Epith Cells Urine Bacteria 05/30/20 05/30/20 17:30 17:50 WBC RBC Hgb Hct MCV MCH MCHC RDW Plt Count MPV Immature Gran % (Auto) Neut % (Auto) Lymph % (Auto) [place] % (Auto) Eos % (Auto) Baso % (Auto) Neut # (Auto) Lymph # (Auto) [place] # (Auto) Eos # (Auto) Baso # (Auto) Abs Immat Gran (auto) Absolute Nucleated RBC Nucleated RBC % (auto) Smear Tech's Comments Sodium Potassium Chloride Carbon Dioxide Anion Gap BUN Creatinine Estim Creat Clear Calc Estimated GFR Random Glucose Lactic Acid 0.7 Calcium Urine Color YELLOW Urine Appearance CLOUDY Urine pH 6.0 Ur Specific [place] 1.015 Urine Protein 2+ H Urine Glucose (UA) NEG Urine Ketones NEG Urine Blood 3+ H Urine Nitrite POS H Ur Leukocyte Esterase 3+ H Urine RBC 15-29 H Urine WBC 30-49 H Ur Squamous Epith Cells NONE Urine Bacteria 2+
--- NOTE | 2020-05-30 21:39 | OP_ITS ---
SURGEON: Yoel Bear MD PREOPERATIVE DIAGNOSIS: POSTOPERATIVE DIAGNOSIS: PROCEDURE PERFORMED: ESTIMATED BLOOD LOSS: COMPLICATIONS: ANESTHESIA: General. ASSISTANTS: SPECIMENS: PREOPERATIVE DIAGNOSES: 1. Bilateral hydronephrosis. 2. Locally invasive prostate cancer. INDICATIONS FOR PROCEDURE: This is a 74-year-old male. Locally advanced prostate cancer that has narrowed the ureteric orifice bilaterally. He has periodic stent exchanges to preserve renal function. DESCRIPTION OF PROCEDURE: After informed consent was verified, the patient was brought to the operating room and placed in supine position. Anesthesia administered per protocol. The patient was placed in modified dorsal lithotomy position and prepped and draped in sterile fashion. A safety pause time-out performed. Antibiotics had been given. A 21-Italian cystoscopy sheath unable to be passed due to meatal stenosis. Meatal dilators were obtained. It had been passed and dilated to a 24-Italian. A 22-Italian cystoscope was then passed without difficulty. The ureteric orifices were seen and stents seen in place. On the left side, we placed an open-ended catheter over the wire and advanced the wire. We were able to then remove the scope. We replaced the scope and removed the current indwelling stent. We then back-loaded the wire through the cystoscope and advanced a 6-Italian x 24 cm stent. The wire was then removed. Good coil was seen in both renal pelvis and the bladder. A similar procedure was repeated on the left-hand side again using a combination of open-ended catheter and wire in order to place the wire prior to removing the stent. The stent was then removed. The wire was then back-loaded over the scope and a second stent placed. He tolerated the procedure well, was extubated in the operating room and transferred in stable condition to the recovery area. DRAINS: As stated above, 2 times 6-Italian x 24 cm stents. MD MAT Del Cid/KWAKUL / [id number]
[2020-05-30] MEDS: Phenylephrine HCL 20 MG in 0.9 % Sodium Chloride 250 ML 38.41 MG IVCONT (23:00)
[2020-05-31] VITALS (28 sets, daily range): BP systolic 96–122; BP diastolic 41–69; PULSE 95–142; RESP 16–136; TEMP 36.7–38.2; O2SAT 89–98
--- NOTE | 2020-05-31 | US_ITS ---
EXAMINATION: RENAL ULTRASOUND CLINICAL INFORMATION: Pyelonephritis with bilateral stents COMPARISON: Previous CT of the abdomen and pelvis March 2020 TECHNIQUE: Grayscale and color imaging of the kidneys. Exam was performed portably in the ICU. Exam is limited due to patient body habitus. FINDINGS: The right kidney measures 12 x 5 x 4.5 cm in dimension. Renal cortical thickness and echogenicity is normal. No stone hydronephrosis or mass is seen. A ureteral stent is not visualized. The left kidney measures 13.1 x 6.5 x 7.2 cm in dimension. There is moderate left hydronephrosis. No stone or mass is seen. A ureteral stent is not visualized. IMPRESSION: Limited exam. Moderate left hydronephrosis. Ureteral stents are not visualized.
[2020-05-31] MEDS: Phenylephrine HCL 20 MG in 0.9 % Sodium Chloride 250 ML 52.5 MG IVCONT (03:36)
[2020-05-31 05:34] LABS: Basophils Percent Auto 0.2 % (0-2); Eosinophils Percent Auto 0.1 % (0-4); Hematocrit 23.7 % (42-52); Hemoglobin 7.2 g/dl (14.0-18.0); Imm Gran Pct Auto 0.6 % (0.0-0.4); Lymphocytes Absolute Auto 0.8 X10*3/uL (1.2-4.9); Lymphocytes Percent Auto 4.7 % (20-40); MANUAL DIFF FLAG SCAN; Mean Corpuscular HGB Conc 30.4 g/dl (31.0-36.0); Mean Corpuscular Volume 95.6 fL (80-98); Mean Platelet Volume 9.4 fL (9.4-12.4); Monocytes Absolute Auto 0.7 X10*3/uL (0.1-1.2); Monocytes Percent Auto 3.8 % (2-11); Neutrophils Absolute Auto 16.4 X10*3/uL (2.0-8.3); Neutrophils Percent Auto 90.6 % (45-73); Platelet Count 269 X10*3/uL (160-400); Red Blood Count 2.48 X10*6/uL (4.60-5.80); Red Cell Distribution Width 15.9 % (11.0-16.0); SCAN SMEAR FLAG 1; White Blood Count 18.1 X10*3/uL (4.8-10.8)
[2020-05-31 05:35] LABS: Base Excess VBG -1.1 mmol/L; Blood Gas Serial # 5396; HCO3 VBG 25 mmol/L; Oxygen Saturation VBG 82.8 %; PCO2 VBG 46 mmhg; PO2 VBG 51 mmhg; pH VBG 7.35 (7.32-7.43)
[2020-05-31 05:38] LABS: SLIDE REVIEW VERIFIED
[2020-05-31 05:59] LABS: Anion Gap 11 (12-20); Blood Urea Nitrogen 36 mg/dL (9-16); Calcium 7.5 mg/dL (8.4-10.2); Carbon Dioxide 23 mmol/L (22-29); Chloride 107 mmol/L (96-108); Creatinine Clr Calc Pharmacy 31.7; Estimated Glomerular Filt Rate 35; Glucose Random 101 mg/dL (60-115); Magnesium 1.6 mg/dL (1.6-2.6); Phosphorus 3.2 mg/dL (2.7-4.5); Potassium 4.1 mmol/l (3.3-5.1); Sodium 137 mmol/L (135-145)
[2020-05-31 06:05] LABS: B Type Natriuretic Peptide 451 pg/mL (<100)
--- NOTE | 2020-05-31 06:37 | PC.NURSE ---
care assumed 23:15..napping intermittantly...easily aroused and/or spontaneously..conversant..vague responses at times..taking po fluids w/o difficulty..neosynephrine 1 mcg/kg/min...sbp stable...cardizem 5 mg/hr overnight...remains monitor multi-focal atrial tach hr 110's-130's...per inpatient services director goal to keep hr >120...this am hr 90's-100's..cvp 14-15...am ymi=[id number]...per dr enriquez cardizem drip turned off and to order iv lasix
[2020-05-31] MEDS: Furosemide 40 MG/4 ML VIAL IVPUSH (06:53)
[2020-05-31 07:49] LABS: INTERNATIONAL NORM RATIO 1.1 (0.9-1.1); Prothrombin Time 12.5 SEC (10.8-13.0)
[2020-05-31 07:51] LABS: Partial Thromboplastin Time 30.8 SEC (24.1-38.0)
--- NOTE | 2020-05-31 08:53 | P.PNCC_ITS ---
Subjective Subjective Date of Service: 05/31/20 Interval History: 74-year-old male with metastatic prostate carcinoma just underwent OR procedure with bilateral stent replacement and then developed shaking chills representing clinical bacteremia/sepsis came in hypotensive with acute on chronic stage III renal failure and here we did complete culturing including blood cultures and urine and given the beta-lactam allergy started him on meropenem and covered at least x1 with vancomycin because of the surgical intervention he had no IV access so central line was placed CVP initially indicating 11 so no additional fluid was added and overnight apparently CVP increased to 14 and he presented in multifocal atrial tachycardia rate 180 and he was empirically treated with Cardizem drip which worked beautifully he is mostly normal sinus with runs of multifocal atrial tachycardia now off the Cardizem so rate peak at 1:30 a.m. but transiently elevated but pressures of 120/50 with mean of 76 temperatures down oxygen saturation at 99% is excellent and given the rising CVP I will do a single diuresis of 40 of Lasix because of creatinine of 1.88 which which is slightly increased but on considering that that is probably due to pyelonephritis and recent relief of an obstructive nephropathy but in addition he is an acute on go on chronic anemia with a dropping hemoglobin to 7.2 and vickie gautam guaiac-positive stool and therefore given the underlying COPD and increased oxygen consumption needs I will transfuse at least 1 unit of packed red cells his multifocal atrial tachycardia still controlled on low-dose Cardizem his urine output remained stable his intermittent respiratory issues over the seemed to resolve after given the initial Lasix he had a 1500 cc urine output response CVP came down to approximately 5-6 from a high of 14 and that too contributed to improvement in his respiratory status Physical Exam Vital Signs and I&O and Narrative: Vital Signs and I&O: Vital Signs Temp 100.8 F H 05/31/20 02:57 Pulse 117 H 05/31/20 07:56 Resp 19 05/31/20 07:56 BP 110/58 L 05/31/20 07:56 Pulse Ox 97 05/31/20 07:56 Intake & Output 05/30/20 05/31/20 05/31/20 18:59 06:59 18:59 Intake Total 2806.405 / 4066.24 4 1259.839 / 4066.24 4 Output Total 625 / 1600 975 / 1600 470 / 470 Balance 2181.405 / 2466.24 4 284.839 / 2466.244 -470 / -470 Urine Output (Aver age ml/kg/hr) 0.72 1.12 Intake: Intake, Oral Alejandra unt 330 / 850 520 / 850 Intake, IV Amoun t 2476.405 / 3216.24 4 739.839 / 3216.244 Acetaminophen 1,000 mg In 100 100 / 100 ml @ 400 mls/h r IV ONCE ONE Rx# :[id number] Gentamicin Sul fate/NaCl 80 mg 100 / 100 In 100 ml @ 10 0 mls/hr IV ONCE ONE Rx#:[id number] Meropenem 1 gm In 0.9 % Sodium 100 / 100 Chloride 100 m l @ 200 mls/hr IV Q12H [facility] Rx#:[id number] vancomycin HCL 1,000 mg In 0.9 245 / 245 % Sodium Chlor ilda 250 ml @ 270 mls/hr IV ONCE ONE Rx#: [id number] Lactated Ringe rs 1,000 ml @ 100 2143.334 / 2143.33 4 mls/hr IVCONT .Q10H [facility] Rx#: [id number] Phenylephrine HCL 20 mg In 0.9 33.071 / 458.910 425.839 / 458.910 % Sodium Chlor ilda 250 ml @ Per Protocol IVCON T .Q0M [facility] Rx#: [id number] dilTIAZem HCL 125 mg In 0.9 % 69 / 69 Sodium Chlorid e 100 ml @ Per Protocol IVCON T .Q0M [facility] Rx#: [id number] Output: Output, Urine Am ount 500 / 500 Output, Stool Am ount 0 / 0 60 / 60 Output, Urine/St ool Mix Amount 350 / 350 Output, Urine Am ount (Catheter) 125 / 1100 975 / 1100 2-way Urethral 125 / 1100 975 / 1100 Output, Chest Tu be Drainage 60 / 60 Amount Right Mid-Axil sarah Chest 60 / 60 Other: NPO Yes No Lunch % Eaten 100% Number of Bowel Movements 1 Number of Incont inent Bowel 0 Movements Urine Color Cloudy with Sedime nt Cloudy with Sedime nt Yellow Stool Bedpan Stool Consistenc y Liquid Body Mass Index 25.0 awake and alert and oriented x3 he has skin pallor but no rash no decubiti I neurologic remains nonfocal chest percussed equally with no clinical adventitious sounds but the has bilateral wheezing cardiac exam normal S1 normal S2 no gallops no murmurs peripherally no evidence of acrocyanosis no clubbing abdomen benign no bruits no tenderness no organomegaly EKG with right bundle branch block and nonspecific ST-T changes and multifocal atrial tachycardia Objective Data Labs CBC & Chem 7: 06/01/20 05:44 06/01/20 05:44 Labs: Laboratory Results - last 24 hr 05/30/20 05/30/20 05/31/20 17:30 17:50 05:24 WBC RBC Hgb Hct MCV MCH MCHC RDW Plt Count MPV Immature Gran % (Auto) Neut % (Auto) Lymph % (Auto) [place] % (Auto) Eos % (Auto) Baso % (Auto) Neut # (Auto) Lymph # (Auto) [place] # (Auto) Eos # (Auto) Baso # (Auto) Abs Immat Gran (auto) Absolute Nucleated RBC Nucleated RBC % (auto) Smear Tech's Comments PT INR APTT VBG pH VBG pCO2 VBG pO2 VBG HCO3 VBG O2 Saturation VBG Base Excess Sodium Potassium Chloride Carbon Dioxide Anion Gap BUN Creatinine Estim Creat Clear Calc Estimated GFR Random Glucose Lactic Acid 0.7 Calcium Phosphorus Magnesium B-Natriuretic Peptide 451 H Urine Color YELLOW Urine Appearance CLOUDY Urine pH 6.0 Ur Specific [place] 1.015 Urine Protein 2+ H Urine Glucose (UA) NEG Urine Ketones NEG Urine Blood 3+ H Urine Nitrite POS H Ur Leukocyte Esterase 3+ H Urine RBC 15-29 H Urine WBC 30-49 H Ur Squamous Epith Cells NONE Urine Bacteria 2+ Blood Type Antibody Screen Crossmatch 05/31/20 05/31/20 05/31/20 05:24 05:25 05:25 WBC 18.1 H RBC 2.48 L Hgb 7.2 L Hct 23.7 L MCV 95.6 MCH 29.0 MCHC 30.4 L RDW 15.9 Plt Count 269 MPV 9.4 Immature Gran % (Auto) 0.6 H Neut % (Auto) 90.6 H Lymph % (Auto) 4.7 L [place] % (Auto) 3.8 Eos % (Auto) 0.1 Baso % (Auto) 0.2 Neut # (Auto) 16.4 H Lymph # (Auto) 0.8 L [place] # (Auto) 0.7 Eos # (Auto) 0.0 Baso # (Auto) 0.0 Abs Immat Gran (auto) 0.10 H Absolute Nucleated RBC 0.000 Nucleated RBC % (auto) 0.0 Smear Tech's Comments VERIFIED PT INR APTT VBG pH 7.35 VBG pCO2 46 VBG pO2 51 VBG HCO3 25 VBG O2 Saturation 82.8 VBG Base Excess -1.1 Sodium 137 Potassium 4.1 Chloride 107 Carbon Dioxide 23 Anion Gap 11 L BUN 36 H Creatinine 1.88 H Estim Creat Clear Calc 31.7 Estimated GFR 35 Random Glucose 101 Lactic Acid Calcium 7.5 L Phosphorus 3.2 Magnesium 1.6 B-Natriuretic Peptide Urine Color Urine Appearance Urine pH Ur Specific [place] Urine Protein Urine Glucose (UA) Urine Ketones Urine Blood Urine Nitrite Ur Leukocyte Esterase Urine RBC Urine WBC Ur Squamous Epith Cells Urine Bacteria Blood Type Antibody Screen Crossmatch 05/31/20 05/31/20 07:16 07:16 WBC RBC Hgb Hct MCV MCH MCHC RDW Plt Count MPV Immature Gran % (Auto) Neut % (Auto) Lymph % (Auto) [place] % (Auto) Eos % (Auto) Baso % (Auto) Neut # (Auto) Lymph # (Auto) [place] # (Auto) Eos # (Auto) Baso # (Auto) Abs Immat Gran (auto) Absolute Nucleated RBC Nucleated RBC % (auto) Smear Tech's Comments PT 12.5 INR 1.1 APTT 30.8 VBG pH VBG pCO2 VBG pO2 VBG HCO3 VBG O2 Saturation VBG Base Excess Sodium Potassium Chloride Carbon Dioxide Anion Gap BUN Creatinine Estim Creat Clear Calc Estimated GFR Random Glucose Lactic Acid Calcium Phosphorus Magnesium B-Natriuretic Peptide Urine Color Urine Appearance Urine pH Ur Specific [place] Urine Protein Urine Glucose (UA) Urine Ketones Urine Blood Urine Nitrite Ur Leukocyte Esterase Urine RBC Urine WBC Ur Squamous Epith Cells Urine Bacteria Blood Type A Positive Antibody Screen NEGATIVE Crossmatch See Detail ABG Interpretation: blood gas remains completely compensated Microbiology Microbiology Results: no growth on cultures to this state Progress Note: A&P Assessment and plan (1) Hypotension: Status: Acute Assessment and Plan: supported on a modest dose of Andres-Synephrine keeping mean arterial pressure over 75 (2) Multifocal atrial tachycardia: Status: Acute Assessment and Plan: rate control with IV Cardizem (3) Acute kidney injury superimposed on chronic kidney disease: Problem details: May b clearly hypovolemic and awaiting CVP measurement to right fluid orderse re lated to prostate cancer,illness dehydration Status: Acute Assessment and Plan: resolving following correction of obstruction and treatment for pyelonephritis (4) Atrial fibrillation with rapid ventricular response: Status: Acute (5) PVD (peripheral vascular disease): Status: Acute (6) HTN (hypertension): Status: Acute (7) Prostate cancer: Status: Acute (8) COPD (chronic obstructive pulmonary disease): Status: Acute Assessment and Plan: still requiring short-acting bronchodilator treatment (9) Anemia: Status: Acute Assessment and Plan: transfuse 1 unit for hemoglobin of 7.2 (10) CKD (chronic kidney disease): Status: Acute Assessment and Plan: his renal function numbers are basically stable as are electrolytes (11) UTI (urinary tract infection): Status: Acute Assessment and Plan: source of sepsis responding to meropenem (12) Sepsis: Problem details: His source is urinary,possible resistant E coli on antibiotics Status: Acute Assessment and Plan: stemming from retrograde instrumentation and manipulation of the ureters Time Spent With Patient Time: Total time spent is greater than 50% in coordination of care (as documented) at patient's floor/unit and/or counseling patient: Time with patient: 25 - 35 minutes
[2020-05-31] MEDS: Phenylephrine HCL 20 MG in 0.9 % Sodium Chloride 250 ML 54.87 MG IVCONT ×2 (08:58→20:23)
[2020-05-31] MEDS: Magnesium Sulfate/D5W 1 GM/100 ML PIGGYBACK IV (09:10)
--- NOTE | 2020-05-31 09:45 | MHC.CM.PN ---
Patient remains in ICU. Patient is from home with oxygen. Patient is active with [facility]. Patient is hoping to return home. May need help with transport home. Continue to monitor for d/c needs/
[2020-05-31] MEDS: Phenylephrine HCL 20 MG in 0.9 % Sodium Chloride 250 ML 65.84 MG IVCONT ×2 (12:17→16:17)
--- NOTE | 2020-05-31 13:17 | P.PNUR_ITS ---
Subjective Subjective Interval history: 74 yr male postop day 2 bilateral stent change Postop fever Admitted for observation and antibiotics transferred to ICU overnight due to tachycardia Has slowly improved Physical Exam Vital Signs and I&O and Narrative: Vital Signs and I&O: Vital Signs Temp 98.2 F 05/31/20 10:36 Pulse 107 H 05/31/20 12:00 Resp 21 H 05/31/20 12:00 BP 104/53 L 05/31/20 12:00 Pulse Ox 98 05/31/20 12:00 Intake & Output 05/30/20 05/31/20 05/31/20 18:59 06:59 18:59 Intake Total 2806.405 / 4066.24 4 1259.839 / 4066.24 4 1033.970 / 1033.97 0 Output Total 625 / 1600 975 / 1600 1660 / 1660 Balance 2181.405 / 2466.24 4 284.839 / 2466.244 -626.030 / -626.03 0 Urine Output (Aver age ml/kg/hr) 0.72 1.12 1.23 Intake: Intake, Oral Alejandra unt 330 / 850 520 / 850 120 / 120 Intake (Blood Pr oduct) Amount 350 / 350 Red Blood Cell s (E0336) Unit 350 / 350 [id number] Intake, IV Amoun t 2476.405 / 3216.24 4 739.839 / 3216.244 563.970 / 563.970 Acetaminophen 1,000 mg In 100 100 / 100 ml @ 400 mls/h r IV ONCE ONE Rx# :[id number] Gentamicin Sul fate/NaCl 80 mg 100 / 100 In 100 ml @ 10 0 mls/hr IV ONCE ONE Rx#:[id number] Magnesium Sulf ate/D5W 1 gm In 100 / 100 100 ml @ 200 m ls/hr IV ONCE ONE Rx#:[id number] Meropenem 1 gm In 0.9 % Sodium 100 / 100 Chloride 100 m l @ 200 mls/hr IV Q12H [facility] Rx#:[id number] vancomycin HCL 1,000 mg In 0.9 245 / 245 % Sodium Chlor ilda 250 ml @ 270 mls/hr IV ONCE ONE Rx#: [id number] Lactated Ringe rs 1,000 ml @ 100 2143.334 / 2143.33 4 mls/hr IVCONT .Q10H [facility] Rx#: [id number] Phenylephrine HCL 20 mg In 0.9 33.071 / 458.910 425.839 / 458.910 463.970 / 463.970 % Sodium Chlor ilda 250 ml @ Per Protocol IVCON T .Q0M [facility] Rx#: [id number] dilTIAZem HCL 125 mg In 0.9 % 69 / 69 0 / 0 Sodium Chlorid e 100 ml @ Per Protocol IVCON T .Q0M [facility] Rx#: [id number] Output: Output, Urine Am ount 500 / 500 Output, Stool Am ount 0 / 0 180 / 180 Output, Urine/St ool Mix Amount 350 / 350 Output, Urine Am ount (Catheter) 125 / 1100 975 / 1100 1070 / 1070 2-way Urethral 125 / 1100 975 / 1100 1070 / 1070 Output, Chest Tu be Drainage 60 / 60 Amount Right Mid-Axil sarah Chest 60 / 60 Other: Meal Refused No NPO Yes No Breakfast % Eate n 100% Lunch % Eaten 100% 100% Number of Bowel Movements 1 Number of Incont inent Bowel 0 Movements Urine Color Cloudy with Sedime nt Cloudy with Sedime nt Pale Yellow Last Bowel Movem ent 05/31/20 Stool Bedpan Stool Color Brown Stool Consistenc y Liquid Body Mass Index 25.0 Const: General: cooperative, awake and tired appearing Eyes: General: appearance normal, both eyes and all related structures Neck: Neck: Yes normal visual inspection Chest: Chest palpation & inspection: normal inspection of the chest Resp: Effort & Inspection: decreased respiratory effort and labored Cardio: Rate: regular rate GI: Inspection: Yes normal to inspection Percussion: Yes normal to percussion Progress Note: A&P Assessment and plan (1) Sepsis: Problem details: His source is urinary,possible resistant E coli on antibiotics Status: Acute Fall Risk Details Current Medications: Current Medications Generic Name Dose Route Start Last Admin Trade Name Freq PRN Reason Stop Dose Admin Acetaminophen 650 mg 05/29/20 15:01 Acetaminophen 325 Mg Tablet PO ONCE PRN Pain, Mild (Pain Scale 1-3) Albuterol Sulfate 2.5 mg 05/29/20 10:27 05/29/20 21:54 Albuterol Sulfate (0.083%) 2.5 Mg/3 Ml Vial.Neb INHALE 2.5 mg ONCE PRN Administration Shortness of Breath/Wheezing Albuterol/Ipratropium 3 ml 05/30/20 12:00 05/30/20 11:06 Albuterol/Iprat 2.5/0.5mg 3 Ml Ampul.Neb INHALE 3 ml RQ6H [facility] Administration Aspirin 81 mg 05/30/20 09:00 05/30/20 09:43 Aspirin 81 Mg Tab.Chew PO 81 mg DAILY [facility] Administration Cilostazol 50 mg 05/29/20 21:59 05/30/20 09:43 Cilostazol 50 Mg Tablet PO 50 mg BID [facility]DO Administration Digoxin 0.25 mg 05/30/20 14:30 05/30/20 15:01 Digoxin 0.5 Mg/2 Ml Ampul IVPUSH 0.25 mg Q6H [facility] Administration Meropenem 1 gm/ Sodium 100 mls @ 200 mls/hr 05/30/20 12:00 05/30/20 15:02 Chloride IV Infused Q12H [facility] Infusion Phenylephrine HCl 20 mg/ 252 mls @ 0 mls/hr 05/30/20 16:30 05/31/20 12:17 Sodium Chloride IVCONT 1.2 mcg/kg/min .Q0M [facility] 65.84 mls/hr Administration Protocol Per Protocol Diltiazem HCl 125 mg/ Sodium 125 mls @ 0 mls/hr 05/30/20 16:30 05/31/20 09:03 Chloride IVCONT 2.5 mg/hr .Q0M [facility] 2.5 mls/hr Titration Protocol Per Protocol Non-Formulary Medication 60 mg 05/30/20 09:00 Apalutamide PO DAILY [facility] Ondansetron HCl 4 mg 05/29/20 17:30 05/29/20 18:01 Ondansetron Hcl 4 Mg/2 Ml Vial IVPUSH 4 mg Q8H PRN Administration Nausea Sodium Chloride 2 ml 05/30/20 00:00 05/30/20 15:02 0.9 % Sodium Chloride Flush 3 Ml Syringe IVFLUSH 2 ml QSHIFT [facility] Administration Time Spent With Patient Time: Total time spent is greater than 50% in coordination of care (as documented) at patient's floor/unit and/or counseling patient: Time with patient: 15 - 24 minutes
[2020-05-31] MEDS: Albuterol/Iprat 2.5/0.5MG 3 ML AMPUL.NEB INHALE ×2 (18:02→22:47)
[2020-05-31] MEDS: dilTIAZem HCL 125 MG in 0.9 % Sodium Chloride 100 ML IVCONT (20:26)
[2020-06-01] VITALS (29 sets, daily range): BP systolic 91–144; BP diastolic 39–89; PULSE 80–172; RESP 14–97; TEMP 36.2–36.9; O2SAT 91–97
--- NOTE | 2020-06-01 | ECG_ITS ---
Test Reason : RAPID HR Blood Pressure : / mmHG Vent. Rate : 167 BPM Atrial Rate : 334 BPM P-R Int : 000 ms QRS Dur : 114 ms QT Int : 290 ms P-R-T Axes : 000 065 -35 degrees QTc Int : 483 ms Atrial flutter with 2:1 A-V conduction Right bundle branch block Abnormal ECG When compared with ECG of 30-MAY-2020 12:43, Atrial flutter has replaced Atrial fibrillation ST more depressed Anterolateral leads Referred By: Pily Pappas Electronically Signed By:ROXANNE FELIPE MD
[2020-06-01] MEDS: Phenylephrine HCL 20 MG in 0.9 % Sodium Chloride 250 ML 54.87 MG IVCONT ×3 (01:00→13:19)
[2020-06-01] MEDS: levalbuterol HCL 1.25 MG/3 ML VIAL.NEB INHALE (04:15)
[2020-06-01 05:51] LABS: MANUAL DIFF FLAG NO
[2020-06-01 05:52] LABS: Basophils Percent Auto 0.2 % (0-2); Eosinophils Absolute Auto 0.1 X10*3/uL (0.0-0.4); Hematocrit 27.8 % (42-52); Hemoglobin 8.6 g/dl (14.0-18.0); Imm Gran Abs Auto 0.05 X10*3/uL (0.00-0.03); Imm Gran Pct Auto 0.5 % (0.0-0.4); Lymphocytes Absolute Auto 0.9 X10*3/uL (1.2-4.9); Mean Corpuscular HGB Conc 30.9 g/dl (31.0-36.0); Mean Corpuscular Hemoglobin 28.4 pg (27.0-33.0); Mean Corpuscular Volume 91.7 fL (80-98); Mean Platelet Volume 9.9 fL (9.4-12.4); Monocytes Absolute Auto 0.6 X10*3/uL (0.1-1.2); Monocytes Percent Auto 5.4 % (2-11); Neutrophils Absolute Auto 9.4 X10*3/uL (2.0-8.3); Neutrophils Percent Auto 84.9 % (45-73); Platelet Count 216 X10*3/uL (160-400); Red Blood Count 3.03 X10*6/uL (4.60-5.80); Red Cell Distribution Width 16.9 % (11.0-16.0); White Blood Count 11.1 X10*3/uL (4.8-10.8)
[2020-06-01 06:00] LABS: Prothrombin Time 12.1 SEC (10.8-13.0)
[2020-06-01 06:03] LABS: Partial Thromboplastin Time 30.6 SEC (24.1-38.0)
[2020-06-01 06:24] LABS: Anion Gap 12 (12-20); Blood Urea Nitrogen 33 mg/dL (9-16); Calcium 7.2 mg/dL (8.4-10.2); Carbon Dioxide 24 mmol/L (22-29); Chloride 106 mmol/L (96-108); Creatinine Clr Calc Pharmacy 38.2; Estimated Glomerular Filt Rate 44; Glucose Random 130 mg/dL (60-115); Magnesium 1.7 mg/dL (1.6-2.6); Phosphorus 2.1 mg/dL (2.7-4.5); Potassium 3.7 mmol/l (3.3-5.1); Sodium 138 mmol/L (135-145)
[2020-06-01 06:26] LABS: B Type Natriuretic Peptide 462 pg/mL (<100); Troponin-I High Sensitivity 22.4 ng/L (<3.5-35.0)
[2020-06-01] MEDS: Metoprolol Tartrate 5 MG/5 ML VIAL IVPUSH (06:30)
--- NOTE | 2020-06-01 07:28 | PC.NURSE ---
Patient with heart rate in the 160's at 0445. Cardizem drip increased to 5 mg/hr at 0450 and YASMINE Lam notitifed. This RN obtained an EKG. Patient was asymptomatic. At 0630 IV lopressor was administered by Dr. Singh. See MAR for documentation.
[2020-06-01] MEDS: Digoxin 0.5 MG/2 ML AMPUL 0.25 MG IVPUSH ×2 (07:38→09:39)
[2020-06-01 07:58] LABS: Base Excess VBG -1.3 mmol/L; HCO3 VBG 25 mmol/L; PCO2 VBG 48 mmhg; PO2 VBG 41 mmhg; pH VBG 7.33 (7.32-7.43)
[2020-06-01] MEDS: Albuterol/Iprat 2.5/0.5MG 3 ML AMPUL.NEB INHALE ×4 (08:45→23:15)
--- NOTE | 2020-06-01 08:52 | PM.CCPN ---
Subjective Subjective Date of Service: 06/01/20 Interval History: 74-year-old male with probable metastatic prostate carcinoma on hormone therapy who just underwent bilateral ureteral stent replacement following which clinical bacteremia with shaking chills and fever and adeno clear-cut urinary tract source and he was completely cultured and antibiotics were started but he needed the ICU for central line placement to manage central venous pressure and flow and fluid and he was in multifocal atrial tachycardia at rates up to 180 with underlying COPD which was exacerbating and probable acute diastolic CHF as well and currently his white count is resolving his hemoglobin improved more than we would have expected rising from 7.2-8.6 after 1 unit transfusion without complication this done to improve oxygen carrying capacity in the face of COPD and cardiovascular dysf unction. No bacterial growth to date but he is clinically resolving on meropenem today his rhythm was atrial flutter with 2-1 AV block and rates of 160 and he remains on low-dose IV Cardizem drip and I gave him 5 mg of IV Lopressor increasing his AV blockade in demonstrating clear-cut flutter waves but with excellent rate control so I will slowly digitalize him so as not to interfere with his COPD just to enhance his AV blockade and eventually may be switched to oral Cardizem or we may introduce and anti arrhythmic which will not be amiodarone week because of the already pre-existing lung disease I think amiodarone would be a particular risk Physical Exam Vital Signs and I&O and Narrative: Vital Signs and I&O: Vital Signs Temp 97.2 F 06/01/20 08:00 Pulse 96 06/01/20 08:00 Resp 22 H 06/01/20 08:00 BP 123/68 06/01/20 08:00 Pulse Ox 95 06/01/20 08:00 Intake & Output 05/31/20 06/01/20 06/01/20 18:59 06:59 18:59 Intake Total 1525.970 / 3232.46 2 1706.492 / 3232.46 2 Output Total 2100 / 3395 1250 / 3395 120 / 120 Balance -574.030 / -162.53 8 456.492 / -162.538 -120 / -120 Urine Output (Aver age ml/kg/hr) 1.62 1.44 0.14 Intake: Intake, Oral [place] unt 360 / 1260 900 / 1260 Intake (Blood Pr oduct) Amount 350 / 350 Red Blood Cell s (E0336) Unit 350 / 350 [id number] Intake, IV Amoun t 815.970 / 1622.462 806.492 / 1622.462 Magnesium Sulf ate/D5W 1 gm In 100 / 100 100 ml @ 200 m ls/hr IV ONCE ONE Rx#:[id number] Phenylephrine HCL 20 mg In 0.9 715.970 / 1471.970 756 / 1471.970 % Sodium Chlor ilda 250 ml @ Per Protocol IVCON T .Q0M [facility] Rx#: [id number] dilTIAZem HCL 125 mg In 0.9 % 0 / 50.492 50.492 / 50.492 Sodium Chlorid e 100 ml @ Per Protocol IVCON T .Q0M [facility] Rx#: [id number] Output: Output, Stool Am ount 280 / 280 Output, Urine/St ool Mix Amount 350 / 350 Output, Urine Am ount (Catheter) 1410 / 2705 1250 / 2705 120 / 120 2-way Urethral 1410 / 2705 1250 / 2705 120 / 120 Output, Chest Tu be Drainage 60 / 60 Amount Right Mid-Axil sarah Chest 60 / 60 Other: Meal Refused No NPO No Breakfast % Eate n 100% Lunch % Eaten 100% Dinner % Eaten 25% Number of Bowel Movements 1 Number of Incont inent Bowel 0 Movements Urine Color Pale Yellow Cloudy with Sedime nt Last Bowel Movem ent 05/31/20 Stool Bedpan Stool Color Brown Stool Consistenc y Mushy Body Mass Index 25.0 doing well still with some respiratory ups and Downs and reflected by tachypnea but no accessory muscle use and no distress and CVP is measuring at approximately 10 so it is not a volume related issue still has skin lb cake pallor but the but good cognitive function oriented x3 chest with bilateral wheezes and diminished breath jose maria nds cardiac exam with normal S1 normal S2 no gallops or murmurs good bilateral carotid upstrokes no bruits no neck vein distension abdomen soft no distention no organomegaly good bowel sounds peripherally there is no clubbing no cyanosis Objective Data Labs CBC & Chem 7: 06/01/20 05:44 06/01/20 05:44 Labs: Laboratory Results - last 24 hr 10/03/1306/01/20 06/01/20 07:16 05:44 05:44 WBC 11.1 H RBC 3.03 L D Hgb 8.6 L Hct 27.8 L MCV 91.7 MCH 28.4 MCHC 30.9 L RDW 16.9 H Plt Count 216 MPV 9.9 Immature Gran % (Auto) 0.5 H Neut % (Auto) 84.9 H Lymph % (Auto) 8.0 L [place] % (Auto) 5.4 Eos % (Auto) 1.0 Baso % (Auto) 0.2 Lymph # (Auto) 0.9 L [place] # (Auto) 0.6 Eos # (Auto) 0.1 Baso # (Auto) 0.0 Abs Immat Gran (auto) 0.05 H Absolute Neuts (auto) 9.4 H Absolute Nucleated RBC 0.000 Nucleated RBC % (auto) 0.0 PT 12.1 INR 1.0 APTT 30.6 VBG pH VBG pCO2 VBG Oxygen Liters/Min VBG pO2 VBG HCO3 VBG O2 Saturation VBG Base Excess Sodium Potassium Chloride Carbon Dioxide Anion Gap BUN Creatinine Estim Creat Clear Calc Estimated GFR Random Glucose Calcium Phosphorus Magnesium Troponin I High Sens B-Natriuretic Peptide Blood Type A Positive Antibody Screen NEGATIVE Crossmatch See Detail 06/01/20 06/01/20 06/01/20 05:44 05:44 05:44 WBC RBC Hgb Hct MCV MCH MCHC RDW Plt Count MPV Immature Gran % (Auto) Neut % (Auto) Lymph % (Auto) [place] % (Auto) Eos % (Auto) Baso % (Auto) Lymph # (Auto) [place] # (Auto) Eos # (Auto) Baso # (Auto) Abs Immat Gran (auto) Absolute Neuts (auto) Absolute Nucleated RBC Nucleated RBC % (auto) PT INR APTT VBG pH VBG pCO2 VBG Oxygen Liters/Min VBG pO2 VBG HCO3 VBG O2 Saturation VBG Base Excess Sodium 138 Potassium 3.7 Chloride 106 Carbon Dioxide 24 Anion Gap 12 BUN 33 H Creatinine 1.56 H Estim Creat Clear Calc 38.2 Estimated GFR 44 Random Glucose 130 H Calcium 7.2 L Phosphorus 2.1 L Magnesium 1.7 Troponin I High Sens 22.4 B-Natriuretic Peptide 462 H Blood Type Antibody Screen Crossmatch 06/01/20 07:39 WBC RBC Hgb Hct MCV MCH MCHC RDW Plt Count MPV Immature Gran % (Auto) Neut % (Auto) Lymph % (Auto) [place] % (Auto) Eos % (Auto) Baso % (Auto) Lymph # (Auto) [place] # (Auto) Eos # (Auto) Baso # (Auto) Abs Immat Gran (auto) Absolute Neuts (auto) Absolute Nucleated RBC Nucleated RBC % (auto) PT INR APTT VBG pH 7.33 VBG pCO2 48 VBG Oxygen Liters/Min TNP VBG pO2 41 VBG HCO3 25 VBG O2 Saturation 72.0 VBG Base Excess -1.3 Sodium Potassium Chloride Carbon Dioxide Anion Gap BUN Creatinine Estim Creat Clear Calc Estimated GFR Random Glucose Calcium Phosphorus Magnesium Troponin I High Sens B-Natriuretic Peptide Blood Type Antibody Screen Crossmatch ABG Interpretation: VBG remained stable with good mixed venous oxygen saturation and stable pCO2 ECG Attestation: I personally reviewed and interpreted this ECG as follows: Interpretation: she converted to atrial flutter with rapid ventricular response at 2:21 a.m. rate 170 so Cardizem was reinstituted and I gave 1 dose of 5 mg Lopressor increasing degree of AV block demonstrating atrial flutter waves with high degree AV block and I started digoxin and received a total of 0.5 mg they currently heart rate is 80 with variable block and variable conduction Microbiology Microbiology Results: Microbiology 05/30/20 17:30 Urine [place] Urine Culture - Final No growth. 05/30/20 17:50 Blood - Central Line Blood Culture - Preliminary No growth after 24 hours. 05/30/20 17:55 Blood - Central Line Blood Culture - Preliminary No growth after 24 hours. Progress Note: A&P Assessment and plan (1) Atrial flutter with rapid ventricular response: Status: Acute (2) Hypotension: Status: Acute (3) Multifocal atrial tachycardia: Status: Acute (4) Acute kidney injury superimposed on chronic kidney disease: Problem details: December clearly hypovolemic and awaiting CVP measurement to right fluid orderse related to prostate cancer,illness dehydration Status: Acute (5) Atrial fibrillation with rapid ventricular response: Status: Acute (6) PVD (peripheral vascular disease): Status: Acute (7) HTN (hypertension): Status: Acute (8) Prostate cancer: Status: Acute (9) COPD (chronic obstructive pulmonary disease): Status: Acute (10) Anemia: Status: Acute (11) CKD (chronic kidney disease): Status: Acute (12) UTI (urinary tract infection): Status: Acute (13) Sepsis: Problem details: His source is urinary,possible resistant E coli on antibiotics Status: Acute Assessment and Plan: so antibiotics which obviously are successful will remain as they are and he is volume replete Ng via diet and as we continue to digitalize we might be able to wean the IV Cardizem and we will maintain volume status such that CVP remains no go higher than 10 Time Spent With Patient Time: Total time spent is greater than 50% in coordination of care (as documented) at patient's floor/unit and/or counseling patient: Time with patient: 25 - 35 minutes
[2020-06-01] MEDS: Morphine Sulfate ER 15 MG TABLET.ER PO ×2 (09:39→21:50)
--- NOTE | 2020-06-01 10:10 | MHC.CM.PN ---
Patient remains in ICU on cardizem drip. Patient is from home with oxygen. Continue to monitor for d/c needs.
[2020-06-01] MEDS: dilTIAZem HCL 125 MG in 0.9 % Sodium Chloride 100 ML 10 MG IVCONT (17:01)
[2020-06-01] MEDS: Phenylephrine HCL 20 MG in 0.9 % Sodium Chloride 250 ML 32.92 MG IVCONT (17:29)
--- NOTE | 2020-06-01 19:58 | PM.PNNEP ---
Subjective Subjective Interval history: Seen and examined. Events noted Physical Exam Vital Signs and I&O and Narrative: Vital Signs and I&O: Vital Signs Temp 97.2 F 06/01/20 16:00 Pulse 116 H 06/01/20 19:00 Resp 24 H 06/01/20 19:00 BP 130/43 L 06/01/20 19:00 Pulse Ox 97 06/01/20 19:00 Intake & Output 06/01/20 06/01/20 06/02/20 06:59 18:59 06:59 Intake Total 1706.492 / 3232.46 2 835.573 / 860.406 24.833 / 860.406 Output Total 1250 / 3395 1080 / 1080 Balance 456.492 / -162.538 -244.427 / -219.59 4 24.833 / -219.594 Urine Output (Aver age ml/kg/hr) 1.44 1.24 1.24 Intake: Intake, Oral [place] unt 900 / 1260 240 / 240 Intake, IV Amoun t 806.492 / 1622.462 595.573 / 620.406 24.833 / 620.406 Phenylephrine HCL 20 mg In 0.9 756 / 1471.970 496.532 / 496.532 % Sodium Chlor ilda 250 ml @ Per Protocol IVCON T .Q0M [facility] Rx#: [id number] dilTIAZem HCL 125 mg In 0.9 % 50.492 / 50.492 99.041 / 123.874 24.833 / 123.874 Sodium Chlorid e 100 ml @ Per Protocol IVCON T .Q0M [facility] Rx#: [id number] Output: Output, Urine Am ount (Catheter) 1250 / 2705 1080 / 1080 2-way Urethral 1250 / 2705 280 / 280 Urethral 800 / 800 Other: Meal Refused No NPO No Breakfast % Eate n 100% Dinner % Eaten 25% 75% Urine Color Cloudy with Sedime nt Body Mass Index 25.0 Assessment & Plan Assessment and plan (1) Atrial flutter with rapid ventricular response: Status: Acute (2) Hypotension: Status: Acute (3) Multifocal atrial tachycardia: Status: Acute (4) Acute kidney injury superimposed on chronic kidney disease: Problem details: December b clearly hypovolemic and awaiting CVP measurement to right fluid orderse related to prostate cancer,illness dehydration Status: Acute (5) Atrial fibrillation with rapid ventricular response: Status: Acute (6) PVD (peripheral vascular disease): Status: Acute (7) HTN (hypertension): Status: Acute (8) Prostate cancer: Status: Acute (9) COPD (chronic obstructive pulmonary disease): Status: Acute (10) Anemia: Status: Acute (11) CKD (chronic kidney disease): Status: Acute (12) UTI (urinary tract infection): Status: Acute (13) Sepsis: Problem details: His source is urinary,possible resistant E coli on antibiotics Status: Acute Assessment and Plan: 1. DARYL: Scr cont improvement 2. CKD 3: bsl SCr 1.5 range 3. Prostate Ca 4. 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 Afib/flutter REC: cont IV ABx; track UOP/renal func avoid NSAIDs Time Spent With Patient Time: Total time spent is greater than 50% in coordination of care (as documented) at patient's floor/unit and/or counseling patient:
[2020-06-01] MEDS: Furosemide 40 MG/4 ML VIAL IVPUSH (23:52)
[2020-06-02] VITALS (24 sets, daily range): BP systolic 93–131; BP diastolic 48–90; PULSE 80–133; RESP 12–24; TEMP 36.1–36.8; O2SAT 90–96
[2020-06-02 00:40] LABS: Glucose Urine UA NEG (NEG); Leukocyte Esterase Urine 2+ (NEG); Nitrite Urine NEG (NEG); Urine Blood 3+ (NEG); Urine Ketones NEG (NEG); Urine Protein 2+ MG/DL (NEG-TRACE)
[2020-06-02 00:41] LABS: Appearance Urine HAZY; Color Urine BROWN
[2020-06-02 00:53] LABS: Mucus Urine 2+ /LPF; RBC Urine TNTC /HPF (0); WBC Urine TNTC /HPF (0-4)
[2020-06-02 00:54] LABS: Amorphous Sediment Urine 2+ /LPF
[2020-06-02] MEDS: dilTIAZem HCL 125 MG in 0.9 % Sodium Chloride 100 ML 10 MG IVCONT (03:50)
[2020-06-02] MEDS: Albuterol/Iprat 2.5/0.5MG 3 ML AMPUL.NEB INHALE ×3 (04:59→17:12)
[2020-06-02 06:32] LABS: MANUAL DIFF FLAG NO
[2020-06-02 06:36] LABS: PCO2 VBG 56 mmhg; pH VBG 7.31 (7.32-7.43)
[2020-06-02 06:37] LABS: Base Excess VBG 0.8 mmol/L; HCO3 VBG 28 mmol/L; PO2 VBG 43 mmhg
[2020-06-02 06:39] LABS: Basophils Percent Auto 0.1 % (0-2); Eosinophils Absolute Auto 0.4 X10*3/uL (0.0-0.4); Eosinophils Percent Auto 5.2 % (0-4); Hematocrit 27.4 % (42-52); Hemoglobin 8.3 g/dl (14.0-18.0); Imm Gran Abs Auto 0.06 X10*3/uL (0.00-0.03); Imm Gran Pct Auto 0.8 % (0.0-0.4); Lymphocytes Percent Auto 12.1 % (20-40); Mean Corpuscular HGB Conc 30.3 g/dl (31.0-36.0); Mean Corpuscular Hemoglobin 28.4 pg (27.0-33.0); Mean Corpuscular Volume 93.8 fL (80-98); Monocytes Absolute Auto 0.4 X10*3/uL (0.1-1.2); Monocytes Percent Auto 5.5 % (2-11); Neutrophils Absolute Auto 6.1 X10*3/uL (2.0-8.3); Neutrophils Percent Auto 76.3 % (45-73); Platelet Count 188 X10*3/uL (160-400); Red Blood Count 2.92 X10*6/uL (4.60-5.80); Red Cell Distribution Width 16.4 % (11.0-16.0)
[2020-06-02 06:40] LABS: Blood Gas Serial # 5414; Oxygen Saturation VBG 75.6 %
--- NOTE | 2020-06-02 06:49 | PC.NURSE ---
ASSUMED CARE AT 19:00. PATIENT ALERT AND ORIENTED, CONTINUES ON DILTIAZEM GTT, HR MULTIFOCAL ATRIAL TACHYCARDIA, BRIEF CONVERSION TO ATRIAL FLUTTER 5:2 A:V RATIO ATY 3 AM, THEN CONTINUES BETWEEN ATRIAL FIBRILLATION AND MAT. RATE INCREASES HIGH 160'S BUT NOT SUSTAINED, TYPICALLY WITH TURNING AND ACTIVITY. MANJINDER TITRATED TO OFF A FEW TIMES OVERNIGHT, AND IS NOW OFF, WITH MAP STILL OVER 70. CVP 8-10 OVERNIGHT. PATIENT REPORTS FEELING MORE COMFORTABLE TODAY, CONTINUES ON MS CONTIN, REPORTS LOWER BACK PAIN, SHARP CHARACTER, 2-4 /10 OVERNIGHT. LUNG SOUNDS HAD INSPIRATORY AND EXPIRATORY WHEEZES THROUGHOUT AND SOME COARSE CRACKLES IN THE LEFT UPPER LOBE, WITH URINE OUTPUTS 25-40 CCS/HOUR WITH CLOUDY AND SEDIMENT APPEARANCE, NEW ORDER FOR 40 MG IV LASIX ADMINISTERED WITH GOOD EFFECT, OUTPUTS AFTERWARD 150-100 CCS / HOUR AND CLEARER; LUNG SOUNDS ALSO NOW DIMINISHED THROUGHOUT. PATIENT ATTEMPTED TO MOVE BOWELS WITHOUT SUCCESS AND REPORTED SOME MILD NAUSEA, DAY SHIFT FOLLOWING UP
[2020-06-02 06:56] LABS: Prothrombin Time 12.3 SEC (10.8-13.0)
[2020-06-02 06:59] LABS: Partial Thromboplastin Time 28.9 SEC (24.1-38.0)
[2020-06-02 07:11] LABS: Anion Gap 11 (12-20); Blood Urea Nitrogen 31 mg/dL (9-16); Calcium 7.6 mg/dL (8.4-10.2); Carbon Dioxide 27 mmol/L (22-29); Chloride 106 mmol/L (96-108); Creatinine Clr Calc Pharmacy 39.7; Estimated Glomerular Filt Rate 46; Glucose Random 128 mg/dL (60-115); Magnesium 1.8 mg/dL (1.6-2.6); Phosphorus 2.7 mg/dL (2.7-4.5); Potassium 3.7 mmol/l (3.3-5.1); Sodium 140 mmol/L (135-145)
[2020-06-02] MEDS: Digoxin 0.5 MG/2 ML AMPUL 0.25 MG IVPUSH (07:14)
[2020-06-02 07:15] LABS: B Type Natriuretic Peptide 427 pg/mL (<100)
[2020-06-02] MEDS: Morphine Sulfate ER 15 MG TABLET.ER PO ×2 (09:26→21:25)
--- NOTE | 2020-06-02 10:34 | MHC.CM.PN ---
Patient remains in ICU. Patient is from home with oxygen. Patient is hoping to return home. Continue to monitor for d/c needs.
--- NOTE | 2020-06-02 11:03 | PM.PNNEP ---
Subjective Subjective Interval history: Seen and examined. Events noted Now on cadizem drip for SVT Doing better overall Physical Exam Vital Signs and I&O and Narrative: Vital Signs and I&O: Vital Signs Temp 98.3 F 06/02/20 08:00 Pulse 111 H 06/02/20 09:00 Resp 20 06/02/20 09:00 BP 112/58 L 06/02/20 09:00 Pulse Ox 94 06/02/20 09:00 Intake & Output 06/01/20 06/02/20 06/02/20 18:59 06:59 18:59 Intake Total 835.573 / 1550.199 594.626 / 1550.199 266.0 / 266.0 Output Total 1079 / 2074 94 / 2074 130 / 130 Balance -244.427 / -524.80 1 -350.374 / -524.80 1 136.0 / 136.0 Urine Output (Aver age ml/kg/hr) 1.24 1.09 0.15 Intake: Intake, Oral [place] unt 240 / 640 280 / 640 240 / 240 Intake, IV Amoun t 595.573 / 910.199 314.626 / 910.199 26.0 / 26.0 Phenylephrine HCL 20 mg In 0.9 496.532 / 674.118 177.586 / 674.118 % Sodium Chlor ilda 250 ml @ Per Protocol IVCON T .Q0M [facility] Rx#: [id number] dilTIAZem HCL 125 mg In 0.9 % 99.041 / 236.081 137.040 / 236.081 26.0 / 26.0 Sodium Chlorid e 100 ml @ Per Protocol IVCON T .Q0M [facility] Rx#: [id number] Output: Output, Urine Am ount (Catheter) 1079 / 2074 94 / 2074 130 / 130 2-way Urethral 280 / 280 Urethral 800 / 1795 945 / 1795 130 / 130 Other: Meal Refused No No NPO No No Breakfast % Eate n 100% 75% Dinner % Eaten 75% Evening Snack % Eaten 100 Urine givens Urine Color Yellow Pale Yellow Last Bowel Movem ent 05/30/20 Body Mass Index 25.0 Const: General: cooperative, comfortable and no acute distress Orientation/consciousness: oriented to person, oriented to place and oriented to time Limitations: No language barrier HENMT: Head: Yes normal to inspection Eyes: General: appearance normal, both eyes and all related structures Neck: Neck: Yes normal visual inspection and Yes full ROM Chest: Chest palpation & inspection: normal inspection of the chest Resp: Effort & Inspection: normal respiratory effort Cardio: Jugular venous distension: no JVD Heart sounds: S1 normal heart sound present and S2 normal heart sound present GI: Inspection: Yes normal to inspection : Testes: other (givens in place) Skin: General skin exam: no rashes or lesions noted Neuro: General: oriented to person, oriented to place and oriented to time Psych: Appearance: grossly normal Assessment & Plan Assessment and plan (1) Atrial flutter with rapid ventricular response: Status: Acute (2) Hypotension: Status: Acute (3) Multifocal atrial tachycardia: Status: Acute (4) Acute kidney injury superimposed on chronic kidney disease: Problem details: May b clearly hypovolemic and awaiting CVP measurement to right fluid orderse related to prostate cancer,illness dehydration Status: Acute (5) Atrial fibrillation with rapid ventricular response: Status: Acute (6) PVD (peripheral vascular disease): Status: Acute (7) HTN (hypertension): Status: Acute (8) Prostate cancer: Status: Acute (9) COPD (chronic obstructive pulmonary disease): Status: Acute (10) Anemia: Status: Acute (11) CKD (chronic kidney disease): Status: Acute (12) UTI (urinary tract infection): Status: Acute (13) Sepsis: Problem details: His source is urinary,possible resistant E coli on antibiotics Status: Acute Assessment and Plan: 1. DARYL: resolved 2. CKD 3: bsl SCr 1.5 range 3. Prostate Ca 4. 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 Afib/flutter 6. Vol status:looks ok REC: cont IV ABx; track UOP/renal func avoid NSAIDs Time Spent With Patient Time: Total time spent is greater than 50% in coordination of care (as documented) at patient's floor/unit and/or counseling patient:
--- NOTE | 2020-06-02 14:10 | P.PNCC_ITS ---
Subjective Subjective Date of Service: 06/02/20 Interval History: 74-year-old male who presented with fever shaking chills and elevated white count following replacement of bilateral ureteral stents and had clear-cut urinary tract infection and likely septic in having developed hypotension and then acute on chronic stage III renal failure which is slowly resolving and was started on meropenem and had other issues related to the COPD there was a exacerbation manifested by status asthmaticus requiring active pulmonary toileting and bronchodilator therapy through nebulization and also developed both paroxysmal atrial flutter with rapid ventricular response at 170 and also atrial fibrillation with response up to 180 and multifocal atrial tachycardia and has been for several days on asymptomatic Cardizem drip and this last episode looking like atrial flutter I slowly digitalized maintaining a degree of AV block maintaining a background of Cardizem and patient is converted to again multifocal atrial tachycardia interspersed with periods of pure sinus rhythm with rates of about 110 on the average. Also background of metastatic prostate carcinoma on hormone therapy Physical Exam Vital Signs and I&O and Narrative: Vital Signs and I&O: Vital Signs Temp 98.3 F 06/02/20 08:00 Pulse 117 H 06/02/20 13:00 Resp 18 06/02/20 13:00 BP 111/57 L 06/02/20 13:00 Pulse Ox 93 06/02/20 13:00 Intake & Output 06/01/20 06/02/20 06/02/20 18:59 06:59 18:59 Intake Total 835.573 / 1550.199 594.626 / 1550.199 486.0 / 486.0 Output Total 1080 / 2075 945 / 2075 275 / 275 Balance -244.427 / -524.80 1 -350.374 / -524.80 1 211.0 / 211.0 Urine Output (Aver age ml/kg/hr) 1.24 1.09 0.32 Intake: Intake, Oral [place] unt 240 / 640 280 / 640 360 / 360 Intake, IV Amoun t 595.573 / 910.199 314.626 / 910.199 126.0 / 126.0 Meropenem 1 gm In 0.9 % Sodium 100 / 100 Chloride 100 m l @ 200 mls/hr IV Q12H [facility] Rx#:[id number] Phenylephrine HCL 20 mg In 0.9 496.532 / 674.118 177.586 / 674.118 % Sodium Chlor ilda 250 ml @ Per Protocol IVCON T .Q0M [facility] Rx#: [id number] dilTIAZem HCL 125 mg In 0.9 % 99.041 / 236.081 137.040 / 236.081 26.0 / 26.0 Sodium Chlorid e 100 ml @ Per Protocol IVCON T .Q0M [facility] Rx#: [id number] Output: Output, Urine Am ount (Catheter) 1080 / 2075 945 / 2075 275 / 275 2-way Urethral 280 / 280 Urethral 800 / 1795 945 / 1795 275 / 275 Other: Meal Refused No No NPO No No Breakfast % Eate n 100% 75% Lunch % Eaten 100% Dinner % Eaten 75% Evening Snack % Eaten 100 Urine givens Urine Color Yellow Pale Yellow Last Bowel Movem ent 05/30/20 Body Mass Index 25.0 awake alert and orie nted x3 pupils equal reactive to light with full extraocular movement and nonfocal neurologic skin with no decubiti I and no rash chest with diminished breath sounds bilaterally and scattered bilatera l wheezes neck is supple with no neck vein distension and good bilateral carotid upstrokes cardiac exam with a normal S1 and normal S2 with no gallops or murmurs abdomen abdomen benign no bruits no tenderness no organomegaly peripherally there is no cyanosis and no livedo Objective Data Labs CBC & Chem 7: 06/02/20 06:20 06/02/20 06:20 Labs: Laboratory Results - last 24 hr 06/02/20 06/02/20 06/02/20 00:23 06:20 06:20 WBC 8.0 RBC 2.92 L Hgb 8.3 L Hct 27.4 L MCV 93.8 MCH 28.4 MCHC 30.3 L RDW 16.4 H Plt Count 188 MPV 10.0 Immature Gran % (Auto) 0.8 H Neut % (Auto) 76.3 H Lymph % (Auto) 12.1 L [place] % (Auto) 5.5 Eos % (Auto) 5.2 H Baso % (Auto) 0.1 Lymph # (Auto) 1.0 L [place] # (Auto) 0.4 Eos # (Auto) 0.4 Baso # (Auto) 0.0 Abs Immat Gran (auto) 0.06 H Absolute Neuts (auto) 6.1 Absolute Nucleated RBC 0.000 Nucleated RBC % (auto) 0.0 PT INR APTT VBG pH VBG pCO2 VBG Oxygen Liters/Min VBG pO2 VBG HCO3 VBG O2 Saturation VBG Base Excess Sodium 140 Potassium 3.7 Chloride 106 Carbon Dioxide 27 Anion Gap 11 L BUN 31 H Creatinine 1.50 H Estim Creat Clear Calc 39.7 Estimated GFR 46 Random Glucose 128 H Calcium 7.6 L Phosphorus 2.7 Magnesium 1.8 B-Natriuretic Peptide Urine Color BROWN Urine Appearance HAZY Urine pH 6.0 Ur Specific [place] 1.020 Urine Protein 2+ H Urine Glucose (UA) NEG Urine Ketones NEG Urine Blood 3+ H Urine Nitrite NEG Ur Leukocyte Esterase 2+ H Urine RBC TNTC H Urine WBC TNTC H Ur Squamous Epith Cells NONE Amorphous Sediment 2+ Urine Bacteria NONE Granular Casts 5-9 Urine Mucus 2+ 06/02/20 06/02/20 06/02/20 06:20 06:20 06:20 WBC RBC Hgb Hct MCV MCH MCHC RDW Plt Count MPV Immature Gran % (Auto) Neut % (Auto) Lymph % (Auto) [place] % (Auto) Eos % (Auto) Baso % (Auto) Lymph # (Auto) [place] # (Auto) Eos # (Auto) Baso # (Auto) Abs Immat Gran (auto) Absolute Neuts (auto) Absolute Nucleated RBC Nucleated RBC % (auto) PT 12.3 INR 1.0 APTT 28.9 VBG pH 7.31 L VBG pCO2 56 VBG Oxygen Liters/Min Not Reportable VBG pO2 43 VBG HCO3 28 VBG O2 Saturation 75.6 VBG Base Excess 0.8 Sodium Potassium Chloride Carbon Dioxide Anion Gap BUN Creatinine Estim Creat Clear Calc Estimated GFR Random Glucose Calcium Phosphorus Magnesium B-Natriuretic Peptide 427 H Urine Color Urine Appearance Urine pH Ur Specific [place] Urine Protein Urine Glucose (UA) Urine Ketones Urine Blood Urine Nitrite Ur Leukocyte Esterase Urine RBC Urine WBC Ur Squamous Epith Cells Amorphous Sediment Urine Bacteria Granular Casts Urine Mucus Microbiology Microbiology Results: Microbiology 05/30/20 17:55 Blood - Central Line Blood Culture - Preliminary No growth after 48 hours. 05/30/20 17:50 Blood - Central Line Blood Culture - Preliminary No growth after 48 hours. 05/30/20 17:30 Urine [place] Urine Culture - Final No growth. Progress Note: A&P Assessment and plan (1) Hypotension: Status: Acute (2) Multifocal atrial tachycardia: Status: Acute (3) Atrial flutter with rapid ventricular response: Status: Acute (4) Acute kidney injury superimposed on chronic kidney disease: Problem details: May b clearly hypovolemic and awaiting CVP measurement to right fluid orderse related to prostate cancer,illness dehydration Status: Acute (5) Atrial fibrillation with rapid ventricular response: Status: Acute (6) PVD (peripheral vascular disease): Status: Acute (7) HTN (hypertension): Status: Acute (8) Prostate cancer: Status: Acute (9) COPD (chronic obstructive pulmonary disease): Status: Acute (10) Anemia: Status: Acute (11) CKD (chronic kidney disease): Status: Acute (12) UTI (urinary tract infection): Status: Acute (13) Sepsis: Problem details: His source is urinary,possible resistant E coli on antibiotics Status: Acute Assessment and Plan: ongoing plan as above maintaining antibiotic and he is tolerating his oral feedings his rhythm has been restored and we will eventually put him on maintenance digoxin and possibly an oral calcium channel teressa yet to be decided and maintain nebulized therapy veno for his asthma and probably time to begin physical therapy Time Spent With Patient Time: Total time spent is greater than 50% in coordination of care (as documented) at patient's floor/unit and/or counseling patient: Time with patient: 25 - 35 minutes
[2020-06-02] MEDS: dilTIAZem HCL 125 MG in 0.9 % Sodium Chloride 100 ML IVCONT (18:13)
[2020-06-02] MEDS: Metoclopramide HCl 10 MG/2 ML VIAL IVPUSH (22:43)
[2020-06-02] MEDS: bisacodyL 10 MG SUPP.RECT PR (22:44)
[2020-06-03] VITALS (24 sets, daily range): BP systolic 105–169; BP diastolic 45–89; PULSE 61–136; RESP 14–20; TEMP 36.1–36.6; O2SAT 90–98
--- NOTE | 2020-06-03 | CT_ITS ---
EXAMINATION: CT ABDOMEN AND PELVIS WITHOUT CONTRAST CLINICAL INFORMATION: Abdominal distention. Mechanical ileus. COMPARISON: CT abdomen and pelvis reports from 01/07/2020 04/11/2020. Currently, prior images are not available/loading in [facility] PACS. KUB from 06/03/2020 is reviewed. TECHNIQUE: Multidetector volumetric imaging was performed from the superior aspect of the liver through the pubic symphysis. Sagittal and coronal reformatted images were obtained on the technologist's workstation. This CT examination was performed using dose optimization techniques as appropriate, variously including the following: *Automated exposure control *Adjustment of mA and/or kV according to patient size (this includes techniques or standardized protocols for targeted exams where dose is matched to indication/reason for exam; i.e. extremities or head) *Use of iterative reconstruction technique DLP: 594 mGy-cm FINDINGS: LUNG BASES: Centrilobular emphysema and bronchial wall thickening in the visualized lung bases. Small bilateral pleural effusions are present. 0.3 cm pleural-based calcification of the posterior right lower lobe. LIVER: The liver has normal size, shape, and attenuation. GALLBLADDER AND BILIARY TREE: Gallbladder is moderately distended and has normal wall thickness. No evidence of gallbladder wall edema or pericholecystic fluid. 1.1 cm rim calcified gallstone is seen in the gallbladder lumen. No intrahepatic or extrahepatic bile duct dilatation. PANCREAS: Unremarkable. SPLEEN: Unremarkable. ADRENAL GLANDS: Unremarkable. KIDNEYS AND URETERS: [id number] atrophy of the right renal cortex. Right ureteral stent is in satisfactory position with proximal loop located in the region of the renal pelvis and distal loop in the bladder. The left ureteral stent is in satisfactory position, as well. A branching calculus in the posterior lower pole of the left kidney measures approximately 1.2 x 0.7 x 0.8 cm. It has a density of 450 Hounsfield units and is located 10.3 cm deep from the skin surface at the posterior axillary line. Mild left hydronephrosis and perinephric edema are present. No hydroureter. No calcified stones within the ureter. Mild bilateral periureteral edema is noted. BOWEL AND PERITONEUM: Stomach is unremarkable. The loops of bowel are normal in size. Diverticulosis of the colon without evidence of diverticulitis. Appendix is normal. No ascites or pneumoperitoneum. ABDOMINAL WALL: Unremarkable. LYMPH NODES: No pathologic sized lymph nodes in the abdomen or pelvis. No inguinal lymphadenopathy. VASCULATURE: Atherosclerotic calcification of the abdominal aorta without aneurysm. BLADDER AND PELVIC VISCERA: The urinary bladder has a diffusely thickened wall. No bladder calculi. The bladder is decompressed by [place] catheter. SKELETAL: Chronic, mild height loss of T10 vertebral body. No acute findings in the degenerated spine. IMPRESSION: * No evidence of bowel obstruction or ileus. * The right and left ureteral stents are in satisfactory position. There is mild left hydronephrosis without hydroureter. The mild bilateral periureteral edema suggests possibility of urinary tract inflammation or infection, if in the right clinical setting. A nonobstructing stone is present in the lower pole of the left kidney. * The urinary bladder is decompressed and its wall is diffusely thickened. The bladder wall thickening could be secondary to cystitis. * Colonic diverticulosis without diverticulitis. * Small bilateral pleural effusions are present.
--- NOTE | 2020-06-03 | XR_ITS ---
EXAMINATION: XR ABDOMEN KUB CLINICAL INDICATION: Distended, painful abdomen. COMPARISON: CXR from 05/30/2020 TECHNIQUE: AP view of the abdomen. FINDINGS: No acute findings in the visualized portion of the chest compared to 05/30/2020. Persistent peribronchial interstitial thickening in the visualized lower lung zones. The visualized cardiac silhouette is normal in size. Bilateral ureteral stents are in their expected positions. The gas containing loop of bowel in the upper abdomen appears to represent the transverse colon, which is in the normal size range. Bowel gas is observed to the level of the rectum. No evidence of pneumoperitoneum. Atherosclerotic calcification of iliac and femoral arteries. No acute osseous abnormality. Several old, healed right lateral rib fractures are noted. A 1.3 cm calcified focus in the intertrochanteric region of the right femur has the appearance of an enchondroma. IMPRESSION: * There is mild gaseous distention of the transverse colon, which is in the normal size range. No radiographic evidence of bowel obstruction or pneumoperitoneum. * Bilateral ureteral stents are in their expected positions.
[2020-06-03] MEDS: Albuterol/Iprat 2.5/0.5MG 3 ML AMPUL.NEB INHALE ×4 (00:30→19:48)
[2020-06-03] MEDS: Sodium Phosphate,Mono-Dibasic 133 ML ENEMA PR (03:37)
[2020-06-03 05:29] LABS: MANUAL DIFF FLAG NO
[2020-06-03 05:37] LABS: Basophils Percent Auto 0.2 % (0-2); Eosinophils Absolute Auto 0.4 X10*3/uL (0.0-0.4); Hematocrit 28.9 % (42-52); Hemoglobin 8.7 g/dl (14.0-18.0); Imm Gran Abs Auto 0.05 X10*3/uL (0.00-0.03); Imm Gran Pct Auto 0.6 % (0.0-0.4); Lymphocytes Absolute Auto 0.9 X10*3/uL (1.2-4.9); Mean Corpuscular HGB Conc 30.1 g/dl (31.0-36.0); Mean Corpuscular Hemoglobin 28.4 pg (27.0-33.0); Mean Corpuscular Volume 94.4 fL (80-98); Mean Platelet Volume 9.7 fL (9.4-12.4); Monocytes Absolute Auto 0.6 X10*3/uL (0.1-1.2); Monocytes Percent Auto 6.7 % (2-11); Neutrophils Absolute Auto 6.8 X10*3/uL (2.0-8.3); Neutrophils Percent Auto 77.5 % (45-73); Platelet Count 192 X10*3/uL (160-400); Red Blood Count 3.06 X10*6/uL (4.60-5.80); Red Cell Distribution Width 16.1 % (11.0-16.0); White Blood Count 8.8 X10*3/uL (4.8-10.8)
[2020-06-03 05:52] LABS: Base Excess VBG -0.3 mmol/L; HCO3 VBG 26 mmol/L; Oxygen Saturation VBG 81.6 %; PCO2 VBG 53 mmhg; PO2 VBG 51 mmhg; pH VBG 7.32 (7.32-7.43)
[2020-06-03 06:04] LABS: B Type Natriuretic Peptide 260 pg/mL (<100)
[2020-06-03] MEDS: Metoprolol Tartrate 25 MG TABLET PO ×2 (06:06→22:17)
[2020-06-03] MEDS: Digoxin 0.125 MG TABLET PO (06:07)
[2020-06-03 06:30] LABS: Prothrombin Time 12.4 SEC (10.8-13.0)
[2020-06-03 07:03] LABS: Blood Urea Nitrogen 30 mg/dL (9-16); Creatinine Clr Calc Pharmacy 43.2; Estimated Glomerular Filt Rate 50; Glucose Random 113 mg/dL (60-115); Magnesium 1.9 mg/dL (1.6-2.6); Phosphorus 3.4 mg/dL (2.7-4.5)
[2020-06-03 07:27] LABS: Anion Gap 12 (12-20); Carbon Dioxide 26 mmol/L (22-29); Chloride 108 mmol/L (96-108); Potassium 3.9 mmol/l (3.3-5.1); Sodium 142 mmol/L (135-145)
--- NOTE | 2020-06-03 07:34 | PM.CCPN ---
Subjective Subjective Date of Service: 06/03/20 Interval History: 74-year-old status post replacement of bilateral ureteral stents following which clinical bacteremia placed on meropenem and because of septic hemodynamics required pressor and fluid support and currently by CVP he has a level of 5 he has also got underlying COPD requiring frequent nebulized therapy that too seems to be subsiding without any use of accessory muscles and no respiratory distress and on minimal support good oxygen saturations and no active wheezing he has had significant constipation and because of metastatic prostate carcinoma is on long-acting morphine sulfate and currently has a distended abdomen which is diffusely tender with a little bit of diffuse guarding and possibly consistent with ileus versus mechanical obstruction but he did have a large bowel movement as result of an enema today so will obtain a KUB and probably start him on methylnaltrexone his rhythm for previously multifocal atrial tachycardia with periodic atrial flutter now a wandering atrial pacemaker with intermittent second-degree or nonconducted P-waves subsequent review of the CT scan showed that there was really no significant ileus and no inflammatory changes other than surrounding the ureter on the right side but otherwise there were 2 patent stents and on blood work his creatinine is now down to 1.38 so I increased his meropenem to Q 8 hourly instead of q.12 and white count and and hemoglobin are both stable he has state is stable pCO2 of about 56 with fairly compensated pH so still has manifestations of acute on chronic hypercarbic respiratory failure Physical Exam Vital Signs and I&O and Narrative: Vital Signs and I&O: Vital Signs Temp 97.8 F 06/03/20 04:00 Pulse 100 06/03/20 06:07 Resp 16 06/03/20 06:00 BP 141/65 H 06/03/20 06:06 Pulse Ox 93 06/03/20 06:00 Intake & Output 06/02/20 06/03/20 06/03/20 18:59 06:59 18:59 Intake Total 765.583 / 1188.500 422.917 / 1188.500 Output Total 550 / 1155 605 / 1155 Balance 215.583 / 33.500 -182.083 / 33.500 Urine Output (Aver age ml/kg/hr) 0.63 0.38 Intake: Intake, Oral Alejandra unt 600 / 880 280 / 880 Intake, IV Amoun t 165.583 / 308.500 142.917 / 308.500 Meropenem 1 gm In 0.9 % Sodium 100 / 200 100 / 200 Chloride 100 m l @ 200 mls/hr IV Q12H [facility] Rx#:[id number] dilTIAZem HCL 125 mg In 0.9 % 65.583 / 108.500 42.917 / 108.500 Sodium Chlorid e 100 ml @ Per Protocol IVCON T .Q0M [facility] Rx#: [id number] Output: Output, Urine Am ount 10 / 10 Output, Stool Am ount 270 / 270 Output, Urine Am ount (Catheter) 550 / 875 325 / 875 Urethral 550 / 875 325 / 875 Other: Meal Refused No NPO No Breakfast % Eate n 75% Lunch % Eaten 100% Dinner % Eaten 100% Number of Bowel Movements 2 Number of Unmeas ured Emesis 1 Episodes Urine CHILDRESS Urine Color Cloudy with Sedime nt Brea Last Bowel Movem ent 06/03/20 Stool Bedpan Stool Color Brown Stool Consistenc y Soft Emesis Color Undigested Food Body Mass Index 25.0 Const: General: cooperative, comfortable, no acute distress and alert Nutritional Appearance: well nourished Orientation/consciousness: patient oriented x3 Limitations: no limitations HENMT: Head: Yes normal to inspection and Yes atraumatic Eyes: General: appearance normal, both eyes and all related structures Pupils: Equal, round and reactive pupils present Neck: Neck: Yes normal visual inspection, Yes full ROM, Yes no lymphadenopathy and Yes no JVD Thyroid: Thyroid normal Carotids: normal carotid upstroke Lymphatic: no lymphadenopathy noted Chest: Chest palpation & inspection: normal inspection of the chest Resp: Effort & Inspection: normal respiratory effort and able to speak in complete sentences Cardio: Jugular venous distension: no JVD and other ( CVP is 5) Palpation: normal PMI Rate: Other ( irregular rate all consistent with wandering atrial pacemaker and some per) Rhythm: abnormal rhythm Heart sounds: S1 normal heart sound present and S2 normal heart sound present Skin: General skin exam: no rashes or lesions noted Neuro: General: patient oriented x3, no focal motor deficits and CN's II-XI intact bilaterally Cranial nerves: Yes CN's II-XII intact bilaterally, Yes Equal, round and reactive pupils present and Yes Bilaterally intact EOM present Cognition (Neuro): normal cognition Extrem: General: Yes full ROM and Yes no clubbing, cyanosis or edema Objective Data Labs CBC & Chem 7: 06/03/20 05:11 06/03/20 05:11 Labs: Laboratory Results - last 24 hr 06/03/20 06/03/20 06/03/20 05:11 05:11 05:11 WBC 8.8 RBC 3.06 L Hgb 8.7 L Hct 28.9 L MCV 94.4 MCH 28.4 MCHC 30.1 L RDW 16.1 H Plt Count 192 MPV 9.7 Immature Gran % (Auto) 0.6 H Neut % (Auto) 77.5 H Lymph % (Auto) 10.0 L Mcpherson % (Auto) 6.7 Eos % (Auto) 5.0 H Baso % (Auto) 0.2 Lymph # (Auto) 0.9 L Mcpherson # (Auto) 0.6 Eos # (Auto) 0.4 Baso # (Auto) 0.0 Abs Immat Gran (auto) 0.05 H Absolute Neuts (auto) 6.8 Absolute Nucleated RBC 0.000 Nucleated RBC % (auto) 0.0 PT 12.4 INR 1.0 APTT 29.0 VBG pH VBG pCO2 VBG pO2 VBG HCO3 VBG O2 Saturation VBG Base Excess Sodium 142 Potassium 3.9 Chloride 108 Carbon Dioxide 26 Anion Gap 12 BUN 30 H Creatinine 1.38 Estim Creat Clear Calc 43.2 Estimated GFR 50 Random Glucose 113 Calcium 8.0 L Phosphorus 3.4 Magnesium 1.9 B-Natriuretic Peptide 06/03/20 06/03/20 05:11 05:17 WBC RBC Hgb Hct MCV MCH MCHC RDW Plt Count MPV Immature Gran % (Auto) Neut % (Auto) Lymph % (Auto) Mcpherson % (Auto) Eos % (Auto) Baso % (Auto) Lymph # (Auto) Mcpherson # (Auto) Eos # (Auto) Baso # (Auto) Abs Immat Gran (auto) Absolute Neuts (auto) Absolute Nucleated RBC Nucleated RBC % (auto) PT INR APTT VBG pH 7.32 VBG pCO2 53 VBG pO2 51 VBG HCO3 26 VBG O2 Saturation 81.6 VBG Base Excess -0.3 Sodium Potassium Chloride Carbon Dioxide Anion Gap BUN Creatinine Estim Creat Clear Calc Estimated GFR Random Glucose Calcium Phosphorus Magnesium B-Natriuretic Peptide 260 H Microbiology Microbiology Results: Microbiology 05/30/20 17:55 Blood - Central Line Blood Culture - Preliminary No growth after 48 hours. 05/30/20 17:50 Blood - Central Line Blood Culture - Preliminary No growth after 48 hours. 05/30/20 17:30 Urine [place] Urine Culture - Final No growth. Progress Note: A&P Assessment and plan (1) Atrial flutter with rapid ventricular response: Status: Acute (2) Hypotension: Status: Acute (3) Multifocal atrial tachycardia: Status: Acute (4) Acute kidney injury superimposed on chronic kidney disease: Problem details: May b clearly hypovolemic and awaiting CVP measurement to right fluid orderse related to prostate cancer,illness dehydration Status: Acute (5) Atrial fibrillation with rapid ventricular response: Status: Acute (6) HTN (hypertension): Status: Acute (7) PVD (peripheral vascular disease): Status: Acute (8) Prostate cancer: Status: Acute (9) COPD (chronic obstructive pulmonary disease): Status: Acute (10) Anemia: Status: Acute (11) CKD (chronic kidney disease): Status: Acute (12) UTI (urinary tract infection): Status: Acute (13) Sepsis: Problem details: His source is urinary,possible resistant E coli on antibiotics Status: Acute Assessment and Plan: so we continue with meropenem and because he is on long-acting morphine for his chronic pain related to his metastatic prostate on going to introduce methylnaltrexone for his balance see if that helps him symptomatically but he also did respond to an enema with his significant bowel movement his rhythm is controlled off IV medication and COPD needs to be treated as we are above Time Spent With Patient Time: Total time spent is greater than 50% in coordination of care (as documented) at patient's floor/unit and/or counseling patient: Total time spent with greater than 50% in coordination of care (as documented) at patient's floor/unit and/or counseling patient:: 35
--- NOTE | 2020-06-03 07:49 | PC.NURSE ---
ASSUMED CARE AT 19:00. PATIENT ALERT AND ORIENTED, CONTINUES TO HAVE ATRIAL FIBRILLATION AND MULTIFOCAL ATRIAL TACHYCARDIA, SWITCHING BETWEEN WITH RATE INCREASES UP TO 130 BPM, BUT MOSTLY CONTROLLED THIS SHIFT, MOSTLY ATRIAL FIBRILLATION 80-110; PER MD ORDERS, PATIENT DILTIAZEM GTT WAS WEANED DOWN AND TURNED OFF AT 06:00 AND PATIENT WAS STARTED ON PO METOPROLOL 25 MG PO BID AND DIGOXIN 0.125 MG BID. PATIENT ALSO WAS NAUSEOUS AROUND 20:00, AND VOMITED A MODERATE AMOUNT OF UNDIGESTED FOOD; DISCUSSED WITH PA AND NEW ORDER FOR ONE TIME REGLAN ADMINISTERED WITH MODEST EFFECT. PATIENT ALSO WAS FEELING VERY CONSTIPATED, LAST BM WAS 10/5. DISCUSSED WITH PA, FIRST NEW ORDER FOR DUCOLAX SUPPOSITORY, ADMINISTERED WITH NOTICEABLE PRESENCE OF WHAT APPEARS TO BE ENLARGED PROSTATE ENROACHING ON RECTAL AREA, DISCUSSED WITH PA. FIRST BM WAS LIKE GRAPE JELLY TEXTURE WITH BLOOD NOTED, DISCUSSED WITH PA. PATIENT WAS TRYING TO HAVE A BM ON BM REPEATEDLY WITHOUT SUCCESS, AND FEELING UNCOMFORTBLE, DISCUSSED WITH PA AND NEW ORDER FOR ENEMA, ADMINISTERED WITH GOOD EFFECT: 4 X BMS SINCE THEN, FIRST FORMED, THEN LIQUID X3, AND THESE WERE ALL BROWN. PATIENT FEELING BETTER THIS MORNING. CONTINUES TO HAVE INSPIRATORY WHEEZES THROUGHOUT AND SCATTERED FINE CRACKLES TO AUSCULTATION, WELL DIM BASES. WAS DESATURATING SOME WITH THE FREQUENT GETTING ON AND OFF BED BLOOM, AND FIO2 UPTITRATED TO 3 LPM FROM 2 WITH GOOD EFFECT. PATIENT HAS HAD A PRODUCTIVE COUGH WITH THICK, TENACIOUS PRATT SPUTUM, WHICH WAS SHOWN TO PA, BUT NO NEW ORDERS AT THIS TIEM. PATIENT WAS HAVING SOMEWHAT LOW URINE OUTPUTS OVERNIGHT, 15-25 CCS / HOUR TO CHILDRESS. PATIENT WAS ALSO DEVELOPING SOME REDNESS TO BUTTOCKS BILATERALLY AND IN SHAPE OF BEDPAN FROM SO FREQUENT BEDPAN USE, BUT THESE REMAIN BLANCHABLE.
[2020-06-03 08:41] LABS: PCO2 VBG 56 mmhg; pH VBG 7.32 (7.32-7.43)
[2020-06-03 08:42] LABS: Base Excess VBG 1.6 mmol/L; Blood Gas Serial # 5414; HCO3 VBG 28 mmol/L; Oxygen Saturation VBG 60.7 %; PO2 VBG 35 mmhg
[2020-06-03] MEDS: Morphine Sulfate ER 15 MG TABLET.ER PO ×2 (10:03→22:17)
--- NOTE | 2020-06-03 10:28 | PM.PNNEP ---
Subjective Subjective Interval history: 74-year-old status post replacement of bilateral ureteral stents following which clinical bacteremia placed on meropenem and because of septic hemodynamics required pressor and fluid support and currently by CVP he has a level of 5 he has also got underlying COPD requiring frequent nebulized therapy that too seems to be subsiding without any use of accessory muscles and no respiratory distress and on minimal support good oxygen saturations and no active wheezing he has had significant constipation and because of metastatic prostate carcinoma is on long-acting morphine sulfate and currently has a distended abdomen which is diffusely tender with a little bit of diffuse guarding and possibly consistent with ileus versus mechanical obstruction but he did have a large bowel movement as result of an enema today so will obtain a KUB and probably start him on methylnaltrexone his rhythm for previously multifocal atrial tachycardia with periodic atrial flutter now a wandering atrial pacemaker with intermittent second-degree or nonconducted P-waves Physical Exam Vital Signs: Vital Signs: Vital Signs Temp Pulse Resp BP Pulse Ox 06/03/20 10:00 98 20 145/70 H 91 L 06/03/20 08:50 98 16 154/64 H 98 06/03/20 08:00 97.6 F 136 H 18 125/60 98 06/03/20 07:00 104 H 16 155/53 H 95 06/03/20 06:07 100 06/03/20 06:06 98 141/65 H 06/03/20 06:00 110 H 16 141/65 H 93 06/03/20 05:00 116 H 15 160/64 H 90 L 06/03/20 04:00 97.8 F 96 17 136/50 L 96 06/03/20 03:00 94 17 134/82 95 06/03/20 02:00 85 17 109/47 L 93 06/03/20 01:00 113 H 19 128/56 L 06/03/20 00:00 97.7 F 103 H 17 123/76 95 06/02/20 23:00 117 H 22 H 119/53 L 94 06/02/20 22:00 124 H 24 H 128/63 92 06/02/20 21:00 112 H 21 H 120/63 90 L 06/02/20 20:00 97.5 F 90 20 122/56 L 95 06/02/20 19:00 82 12 126/77 96 06/02/20 18:00 118 H 20 126/90 H 92 06/02/20 16:57 101 H 21 H 119/59 L 93 06/02/20 16:00 97.0 F 92 20 121/58 L 95 06/02/20 15:00 99 21 H 112/55 L 94 06/02/20 14:00 99 22 H 106/53 L 95 06/02/20 13:00 117 H 18 111/57 L 93 06/02/20 12:36 105 H 20 114/59 L 93 06/02/20 11:00 98 15 120/54 L 94 Body Mass Index 25.0 Const: General: cooperative Orientation/consciousness: oriented to person Neck: Neck: Yes supple Resp: Auscultation: clear to auscultation bilaterally Cardio: Heart sounds: no rubs GI: Inspection: Yes distended Palpation (GI): Soft to palpation Skin: General skin exam: no rashes or lesions noted Neuro: General: oriented to person Motor exam (neuro): No Asterixis during motor activity present Assessment & Plan Assessment and plan (1) CKD (chronic kidney disease): Status: Acute Assessment and Plan: 1. DARYL: resolved 2. CKD 3: bsl SCr 1.5 range 3. Prostate Ca 4. 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 Afib/flutter 6. Vol status:looks ok REC: cont IV ABx; track UOP/renal func avoid NSAIDs
--- NOTE | 2020-06-03 18:00 | PC.NURSE ---
S/E [id number]: AFEBRILE, VSS. A&O X 4. CHRONIC BACK PAIN SCALE 6-7 OUT OF 10, SCHEDULED PAIN MEDICATIONS GIVEN. LS I&E WHEEZE THROUGHOUT ON 3L NC W/ HUMIDIFIER. COUGHS UP THICK, PRATT SECRETIONS. CHILDRESS OUTPUT WNL. SMEAR OF A BM THIS SHIFT. ACTIVE BS, KUB AND CT ABD COMPLETED THIS AM. BATHED, BARRIER CREAM APPLIED, EDUCATED ON IMPORTANCE OF Q2H REPO, SEQUENTIALS ON.
[2020-06-04] VITALS (8 sets, daily range): BP systolic 131–154; BP diastolic 52–75; PULSE 61–85; RESP 16–20; TEMP 36.2–36.8; O2SAT 94–100
[2020-06-04] MEDS: 0.9 % Sodium Chloride Flush 3 ML SYRINGE 2 ML IVFLUSH ×3 (02:00→16:36)
[2020-06-04] MEDS: Albuterol/Iprat 2.5/0.5MG 3 ML AMPUL.NEB INHALE ×4 (05:42→19:31)
[2020-06-04] MEDS: Morphine Sulfate ER 15 MG TABLET.ER PO ×2 (08:41→22:21)
[2020-06-04] MEDS: Digoxin 0.125 MG TABLET PO (08:41)
[2020-06-04] MEDS: Metoprolol Tartrate 25 MG TABLET PO ×2 (08:42→20:23)
--- NOTE | 2020-06-04 14:41 | PM.PNNEP ---
Subjective Subjective Interval history: Events noted Transferred out of ICU Non oliguric Physical Exam Vital Signs: Vital Signs: Vital Signs Temp Pulse Resp BP Pulse Ox 06/04/20 12:00 97.4 F 82 20 143/66 H 100 06/04/20 08:42 84 145/71 H 06/04/20 08:41 84 06/04/20 07:59 97.6 F 84 20 145/71 H 95 06/04/20 03:17 97.2 F 85 16 154/75 H 94 06/03/20 23:40 97.5 F 101 H 18 105/60 97 06/03/20 22:17 61 155/73 H 06/03/20 19:00 97.8 F 108 H 18 168/89 H 98 06/03/20 18:00 91 19 128/52 L 97 06/03/20 17:00 105 H 19 169/77 H 95 06/03/20 16:00 97.6 F 77 15 144/75 H 97 06/03/20 15:00 92 15 129/57 L 97 Body Mass Index 25.0 Const: General: cooperative Orientation/consciousness: oriented to person Neck: Neck: Yes supple Resp: Auscultation: clear to auscultation bilaterally Cardio: Heart sounds: no rubs GI: Inspection: Yes distended Palpation (GI): Soft to palpation Skin: General skin exam: no rashes or lesions noted Neuro: General: oriented to person Motor exam (neuro): No Asterixis during motor activity present Assessment & Plan Assessment and plan (1) CKD (chronic kidney disease): Status: Acute Assessment and Plan: 1. DARYL: resolved 2. CKD 3: bsl SCr 1.5 range 3. Prostate Ca 4. 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 Afib/flutter 6. Vol status:looks ok REC: cont IV ABx; track UOP/renal func avoid NSAIDs
--- NOTE | 2020-06-04 15:31 | HO.PM.IMPN ---
Subjective Subjective Date of Service: 06/04/20 Interval History: the patient was seen and evaluated this morning Laying in bed, feels comfortable Denies any fever, chills or shortness of breath No reported other overnight events. Review of Systems Review of Systems: Yes all other systems are reviewed and are negative Physical Exam Vital Signs: Vital Signs: Vital Signs Temp Pulse Resp BP Pulse Ox 06/04/20 12:00 97.4 F 82 20 143/66 H 100 06/04/20 08:42 84 145/71 H 06/04/20 08:41 84 06/04/20 07:59 97.6 F 84 20 145/71 H 95 06/04/20 03:17 97.2 F 85 16 154/75 H 94 06/03/20 23:40 97.5 F 101 H 18 105/60 97 06/03/20 22:17 61 155/73 H 06/03/20 19:00 97.8 F 108 H 18 168/89 H 98 06/03/20 18:00 91 19 128/52 L 97 06/03/20 17:00 105 H 19 169/77 H 95 06/03/20 16:00 97.6 F 77 15 144/75 H 97 Body Mass Index 25.0 Constitutional : Alert, oriented, not in distress Neck : Normal inspection, Supple Cardiovascular : RRR, S1 S2, no lower extremity edema Respiratory : Good bilateral air entry, no crackles, wheezes or rhonchi Gastrointestinal: soft, lax, Normal bowel sounds, Non tender Uro: catheter inplace, clear urine Skin : Warm/Dry, No rash Neurological : Alert & oriented x3, No focal deficit Objective Data Current Medications Generic Name Dose Route Start Last Admin Trade Name Miguel Aq PRN Reason Stop Dose Admin Acetaminophen 650 mg 05/29/20 15:01 Acetaminophen 325 Mg Tablet PO ONCE PRN Pain, Mild (Pain Scale 1-3) Albuterol/Ipratropium 3 ml 05/30/20 12:00 06/04/20 11:21 Albuterol/Iprat 2.5/0.5mg 3 Ml Ampul.Neb INHALE 3 ml RQ6H MUNDO Administration Aspirin 81 mg 05/30/20 09:00 05/30/20 09:43 Aspirin 81 Mg Tab.Chew PO 81 mg DAILY MUNDO Administration Digoxin 0.125 mg 06/03/20 05:30 06/04/20 08:41 Digoxin 0.125 Mg Tablet PO 0.125 mg DAILY MUNDO Administration Meropenem 1 gm/ Sodium 100 mls @ 100 mls/hr 06/03/20 08:00 06/04/20 09:40 Chloride IV Infused Q8H [facility] Infusion Levalbuterol HCl 1.25 mg 05/31/20 14:31 06/01/20 04:15 Levalbuterol Hcl 1.25 Mg/3 Ml Vial.Neb INHALE 1.25 mg Q2H PRN Administration Dyspnea Metoprolol Tartrate 25 mg 06/03/20 05:30 06/04/20 08:42 Metoprolol Tartrate 25 Mg Tablet PO 25 mg BID [facility] Administration Protocol Morphine Sulfate 15 mg 06/01/20 10:00 06/04/20 08:41 Morphine Sulfate Er 15 Mg Tablet.Er PO 15 mg Q12H MUNDO Administration Sodium Chloride 2 ml 05/30/20 00:00 06/04/20 08:42 0.9 % Sodium Chloride Flush 3 Ml Syringe IVFLUSH 2 ml QSHIFT [facility] Administration Labs CBC & Chem 7: 06/03/20 05:11 06/03/20 05:11 Microbiology Microbiology Results: Microbiology 06/02/20 00:10 Urine [place] Urine Culture - Final No growth. 05/30/20 17:55 Blood - Central Line Blood Culture - Preliminary No growth after 48 hours. 05/30/20 17:50 Blood - Central Line Blood Culture - Preliminary No growth after 48 hours. 05/30/20 17:30 Urine [place] Urine Culture - Final No growth. Assessment and Plan (1) UTI (urinary tract infection): Status: Acute (2) Sepsis: Problem details: His source is urinary,possible resistant E coli on antibiotics Status: Acute (3) Acute kidney injury superimposed on chronic kidney disease: Status: Acute (4) Multifocal atrial tachycardia: Status: Acute (5) Prostate cancer: Status: Acute (6) COPD (chronic obstructive pulmonary disease): Status: Acute (7) HTN (hypertension): Status: Acute Assessment and Plan: a 74 years old male who presents to the hospital septic as a result of obstructed bilateral ureteral stent which were changed by Urology. Treated in ICU with IV fluid and IV pressors. 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
[2020-06-05] VITALS (7 sets, daily range): BP systolic 123–166; BP diastolic 62–72; PULSE 60–88; RESP 16–20; TEMP 36.3–36.7; O2SAT 93–100
[2020-06-05] MEDS: 0.9 % Sodium Chloride Flush 3 ML SYRINGE 2 ML IVFLUSH ×2 (00:18→09:22)
[2020-06-05] MEDS: Albuterol/Iprat 2.5/0.5MG 3 ML AMPUL.NEB INHALE ×3 (06:26→18:10)
[2020-06-05 06:40] LABS: MANUAL DIFF FLAG NO
[2020-06-05 07:07] LABS: Basophils Percent Auto 0.2 % (0-2); Eosinophils Absolute Auto 0.7 X10*3/uL (0.0-0.4); Eosinophils Percent Auto 5.5 % (0-4); Hematocrit 31.1 % (42-52); Hemoglobin 9.1 g/dl (14.0-18.0); Imm Gran Abs Auto 0.09 X10*3/uL (0.00-0.03); Imm Gran Pct Auto 0.7 % (0.0-0.4); Lymphocytes Absolute Auto 1.4 X10*3/uL (1.2-4.9); Lymphocytes Percent Auto 11.4 % (20-40); Mean Corpuscular HGB Conc 29.3 g/dl (31.0-36.0); Mean Corpuscular Hemoglobin 28.6 pg (27.0-33.0); Mean Corpuscular Volume 97.8 fL (80-98); Mean Platelet Volume 9.8 fL (9.4-12.4); Monocytes Percent Auto 8.1 % (2-11); Neutrophils Absolute Auto 9.2 X10*3/uL (2.0-8.3); Neutrophils Percent Auto 74.1 % (45-73); Platelet Count 208 X10*3/uL (160-400); Red Blood Count 3.18 X10*6/uL (4.60-5.80); Red Cell Distribution Width 15.9 % (11.0-16.0); White Blood Count 12.5 X10*3/uL (4.8-10.8)
[2020-06-05 07:25] LABS: Anion Gap 14 (12-20); Blood Urea Nitrogen 33 mg/dL (9-16); Calcium 8.1 mg/dL (8.4-10.2); Carbon Dioxide 24 mmol/L (22-29); Chloride 110 mmol/L (96-108); Creatinine Clr Calc Pharmacy 49.3; Estimated Glomerular Filt Rate 58; Glucose Random 83 mg/dL (60-115); Potassium 4.7 mmol/l (3.3-5.1); Sodium 143 mmol/L (135-145)
[2020-06-05] MEDS: Metoprolol Tartrate 25 MG TABLET PO ×2 (09:21→22:12)
[2020-06-05] MEDS: Furosemide 20 MG TABLET PO (09:21)
[2020-06-05] MEDS: Morphine Sulfate ER 15 MG TABLET.ER PO ×2 (09:21→22:13)
[2020-06-05] MEDS: Digoxin 0.125 MG TABLET PO (09:22)
--- NOTE | 2020-06-05 11:57 | PC.NURSE ---
givens cath d/c'd at 1200 06/05/20. dtv # 1 at 1800. urinal at bedside.
--- NOTE | 2020-06-05 15:16 | HO.PM.IMPN ---
Subjective Subjective Interval History: the patient was seen and evaluated this morning Laying in bed, feels comfortable pain under good control Denies any fever, chills or shortness of breath No reported other overnight events. Physical Exam Vital Signs: Vital Signs: Vital Signs Temp Pulse Resp BP Pulse Ox 06/05/20 12:00 97.6 F 75 20 152/70 H 97 06/05/20 07:26 97.8 F 88 20 166/68 H 100 06/05/20 03:47 97.4 F 78 16 124/62 98 06/05/20 00:00 98.0 F 77 18 123/72 93 06/04/20 20:23 62 131/52 L 06/04/20 19:55 97.8 F 62 18 131/52 L 100 06/04/20 15:31 98.2 F 61 18 137/61 100 Body Mass Index 25.0 Constitutional : Alert, oriented, not in distress Neck : Normal inspection, Supple Cardiovascular : RRR, S1 S2, no lower extremity edema Respiratory : Good bilateral air entry, no crackles, wheezes or rhonchi Gastrointestinal: soft, lax, Normal bowel sounds, Non tender Uro: catheter inplace, clear urine Skin : Warm/Dry, No rash Neurological : Alert & oriented x3, No focal deficit Objective Data Current Medications Generic Name Dose Route Start Last Admin Trade Name Miguel Aq PRN Reason Stop Dose Admin Acetaminophen 650 mg 05/29/20 15:01 Acetaminophen 325 Mg Tablet PO ONCE PRN Pain, Mild (Pain Scale 1-3) Albuterol/Ipratropium 3 ml 05/30/20 12:00 06/05/20 11:39 Albuterol/Iprat 2.5/0.5mg 3 Ml Ampul.Neb INHALE 3 ml RQ6H MUNDO Administration Aspirin 81 mg 05/30/20 09:00 05/30/20 09:43 Aspirin 81 Mg Tab.Chew PO 81 mg DAILY MUNDO Administration Digoxin 0.125 mg 06/03/20 05:30 06/05/20 09:22 Digoxin 0.125 Mg Tablet PO 0.125 mg DAILY MUNDO Administration Fluticasone/Vilanterol 1 puff 06/05/20 09:00 06/05/20 11:45 Fluticasone/Vilanterol 200/25 Blst.W.Dev INHALE Not Given RDAILY MUNDO Furosemide 20 mg 06/05/20 08:15 06/05/20 10:18 Furosemide 20 Mg Tablet PO Not Given DAILY [facility] Protocol Meropenem 1 gm/ Sodium 100 mls @ 100 mls/hr 06/03/20 08:00 06/05/20 09:56 Chloride IV Infused Q8H [facility] Infusion Levalbuterol HCl 1.25 mg 05/31/20 14:31 06/01/20 04:15 Levalbuterol Hcl 1.25 Mg/3 Ml Vial.Neb INHALE 1.25 mg Q2H PRN Administration Dyspnea Metoprolol Tartrate 25 mg 06/03/20 05:30 06/05/20 09:21 Metoprolol Tartrate 25 Mg Tablet PO 25 mg BID [facility] Administration Protocol Morphine Sulfate 15 mg 06/01/20 10:00 06/05/20 09:21 Morphine Sulfate Er 15 Mg Tablet.Er PO 15 mg Q12H MUNDO Administration Sodium Chloride 2 ml 05/30/20 00:00 06/05/20 09:22 0.9 % Sodium Chloride Flush 3 Ml Syringe IVFLUSH 2 ml QSHIFT [facility] Administration Labs CBC & Chem 7: 06/05/20 05:57 06/05/20 05:57 Microbiology Microbiology Results: Microbiology 05/30/20 17:55 Blood - Central Line Blood Culture - Final No growth after 5 days. 05/30/20 17:50 Blood - Central Line Blood Culture - Final No growth after 5 days. 06/02/20 00:10 Urine [place] Urine Culture - Final No growth. 05/30/20 17:30 Urine [place] Urine Culture - Final No growth. Assessment and Plan (1) UTI (urinary tract infection): Status: Acute (2) Sepsis: Status: Acute (3) Acute kidney injury superimposed on chronic kidney disease: Status: Acute (4) Multifocal atrial tachycardia: Status: Acute (5) Prostate cancer: Status: Acute (6) COPD (chronic obstructive pulmonary disease): Status: Acute (7) HTN (hypertension): Status: Acute Assessment and Plan: a 74 years old male who presents to the hospital septic as a result of obstructed bilateral ureteral stent which were changed by Urology. Treated in ICU with IV fluid and IV pressors. 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
--- NOTE | 2020-06-05 16:18 | PM.PNNEP ---
Subjective Subjective Interval history: Events noted Physical Exam Vital Signs: Vital Signs: Vital Signs Temp Pulse Resp BP Pulse Ox 06/05/20 15:15 97.5 F 71 18 137/72 97 06/05/20 12:00 97.6 F 75 20 152/70 H 97 06/05/20 07:26 97.8 F 88 20 166/68 H 100 06/05/20 03:47 97.4 F 78 16 124/62 98 06/05/20 00:00 98.0 F 77 18 123/72 93 06/04/20 20:23 62 131/52 L 06/04/20 19:55 97.8 F 62 18 131/52 L 100 Body Mass Index 25.0 Const: General: cooperative Orientation/consciousness: oriented to person Neck: Neck: Yes supple Resp: Auscultation: clear to auscultation bilaterally Cardio: Heart sounds: no rubs GI: Inspection: Yes distended Palpation (GI): Soft to palpation Skin: General skin exam: no rashes or lesions noted Neuro: General: oriented to person Motor exam (neuro): No Asterixis during motor activity present Assessment & Plan Assessment and plan (1) CKD (chronic kidney disease): Status: Acute Assessment and Plan: 1. DARYL: resolved 2. CKD 3: bsl SCr 1.5 range 3. Prostate Ca 4. 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 Afib/flutter 6. Vol status:looks ok REC: cont IV ABx; track UOP/renal func avoid NSAIDs
[2020-06-05] MEDS: Docusate Sodium 100 MG CAPSULE PO ×2 (17:06→22:14)
[2020-06-05] MEDS: polyethylene glycoL 3350 17 GM POWD.PACK PO (17:06)
[2020-06-06] VITALS (10 sets, daily range): BP systolic 148–184; BP diastolic 63–94; PULSE 66–94; RESP 16–22; TEMP 35.9–36.9; O2SAT 93–98
[2020-06-06] MEDS: Albuterol/Iprat 2.5/0.5MG 3 ML AMPUL.NEB INHALE ×3 (00:10→11:04)
[2020-06-06] MEDS: 0.9 % Sodium Chloride Flush 3 ML SYRINGE 2 ML IVFLUSH ×4 (01:10→23:52)
[2020-06-06 06:25] LABS: MANUAL DIFF FLAG NO
[2020-06-06 06:39] LABS: Basophils Percent Auto 0.4 % (0-2); Eosinophils Absolute Auto 0.6 X10*3/uL (0.0-0.4); Eosinophils Percent Auto 5.9 % (0-4); Hematocrit 31.4 % (42-52); Hemoglobin 9.3 g/dl (14.0-18.0); Imm Gran Abs Auto 0.07 X10*3/uL (0.00-0.03); Imm Gran Pct Auto 0.7 % (0.0-0.4); Lymphocytes Absolute Auto 1.3 X10*3/uL (1.2-4.9); Lymphocytes Percent Auto 12.2 % (20-40); Mean Corpuscular HGB Conc 29.6 g/dl (31.0-36.0); Mean Corpuscular Hemoglobin 28.8 pg (27.0-33.0); Mean Corpuscular Volume 97.2 fL (80-98); Mean Platelet Volume 10.3 fL (9.4-12.4); Monocytes Absolute Auto 0.9 X10*3/uL (0.1-1.2); Monocytes Percent Auto 9.1 % (2-11); Neutrophils Absolute Auto 7.4 X10*3/uL (2.0-8.3); Neutrophils Percent Auto 71.7 % (45-73); Platelet Count 264 X10*3/uL (160-400); Red Blood Count 3.23 X10*6/uL (4.60-5.80); Red Cell Distribution Width 15.8 % (11.0-16.0); White Blood Count 10.3 X10*3/uL (4.8-10.8)
[2020-06-06 07:01] LABS: Anion Gap 14 (12-20); Blood Urea Nitrogen 34 mg/dL (9-16); Calcium 8.4 mg/dL (8.4-10.2); Carbon Dioxide 27 mmol/L (22-29); Chloride 111 mmol/L (96-108); Creatinine Clr Calc Pharmacy 50.1; Estimated Glomerular Filt Rate 60; Glucose Random 82 mg/dL (60-115); Potassium 4.7 mmol/l (3.3-5.1); Sodium 147 mmol/L (135-145)
[2020-06-06] MEDS: Furosemide 20 MG TABLET PO (08:14)
[2020-06-06] MEDS: polyethylene glycoL 3350 17 GM POWD.PACK PO (08:14)
[2020-06-06] MEDS: Docusate Sodium 100 MG CAPSULE PO ×2 (08:15→20:23)
[2020-06-06] MEDS: Digoxin 0.125 MG TABLET PO (08:15)
[2020-06-06] MEDS: Metoprolol Tartrate 25 MG TABLET PO ×2 (08:15→20:15)
[2020-06-06] MEDS: Morphine Sulfate ER 15 MG TABLET.ER PO ×2 (09:23→21:49)
[2020-06-06] MEDS: Fluticasone/Vilanterol 200/25 BLST.W.DEV 1 PUFF INHALE (10:19)
--- NOTE | 2020-06-06 10:39 | PM.PNNEP ---
Subjective Subjective Interval history: Events noted No dyspnea Physical Exam Vital Signs: Vital Signs: Vital Signs Temp Pulse Resp BP Pulse Ox 06/06/20 10:02 72 148/94 H 06/06/20 09:21 72 148/94 H 06/06/20 08:15 76 180/70 H 06/06/20 07:41 97.8 F 76 16 180/70 H 96 06/06/20 03:50 98.4 F 69 18 149/63 H 93 06/05/20 23:47 97.7 F 60 18 163/68 H 98 06/05/20 19:58 97.4 F 65 18 146/65 H 99 06/05/20 15:15 97.5 F 71 18 137/72 97 06/05/20 12:00 97.6 F 75 20 152/70 H 97 Body Mass Index 25.0 Const: General: cooperative Orientation/consciousness: oriented to person Neck: Neck: Yes supple Resp: Auscultation: clear to auscultation bilaterally Cardio: Heart sounds: no rubs GI: Inspection: Yes distended Palpation (GI): Soft to palpation Skin: General skin exam: no rashes or lesions noted Neuro: General: oriented to person Motor exam (neuro): No Asterixis during motor activity present Assessment & Plan Assessment and plan (1) CKD (chronic kidney disease): Status: Acute Assessment and Plan: 1. DARYL: resolved 2. CKD 3: bsl SCr 1.2 range 3. Prostate Ca 4. 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 Afib/flutter 6.Mild hypernatremia - due to free water deficit due to lasix REC: AGree with stopping Lasix KeepI > O Increase PO water intake cont IV ABx; track UOP/renal func avoid NSAIDs
--- NOTE | 2020-06-06 12:17 | MHC.CM.PN ---
PT recommends STR.CM met with Patient and left a detailed phone message for Niece/Shaye, requesting SNF preferences. CM indicated that referrals would be made to [facility], close to Patient's home and [facility] to determine bed availability. CM will continue to follow for dc planning, and awaits a return call from Shaye.
--- NOTE | 2020-06-06 16:32 | HO.PM.IMPN ---
Subjective Subjective Date of Service: 06/06/20 Interval History: the patient was seen and evaluated this morning Laying in bed, feels comfortable Denies any fever, chills or shortness of breath No reported other overnight events. Review of Systems Review of Systems: Yes all other systems are reviewed and are negative Physical Exam Vital Signs: Vital Signs: Vital Signs Temp Pulse Resp BP Pulse Ox 06/06/20 15:44 96.7 F L 71 18 184/72 H 98 06/06/20 11:39 97.9 F 69 18 170/80 H 94 06/06/20 10:02 72 148/94 H 06/06/20 09:21 72 148/94 H 06/06/20 08:15 76 180/70 H 06/06/20 07:41 97.8 F 76 16 180/70 H 96 06/06/20 03:50 98.4 F 69 18 149/63 H 93 06/05/20 23:47 97.7 F 60 18 163/68 H 98 06/05/20 19:58 97.4 F 65 18 146/65 H 99 Body Mass Index 25.0 Constitutional : Alert, orientedx2, not in distress, looks very tired and lethargic Neck : Normal inspection, Supple Cardiovascular : RRR, S1 S2, no lower extremity edema Respiratory : Good bilateral air entry, no crackles, wheezes or rhonchi Gastrointestinal: soft, lax, Normal bowel sounds, Non tender Uro: catheter inplace, clear urine Skin : Warm/Dry, No rash Neurological : Alert & oriented x2, No focal deficit Objective Data Current Medications Generic Name Dose Route Start Last Admin Trade Name Miguel Aq PRN Reason Stop Dose Admin Acetaminophen 650 mg 05/29/20 15:01 Acetaminophen 325 Mg Tablet PO ONCE PRN Pain, Mild (Pain Scale 1-3) Albuterol/Ipratropium 3 ml 05/30/20 12:00 06/06/20 11:04 Albuterol/Iprat 2.5/0.5mg 3 Ml Ampul.Neb INHALE 3 ml RQ6H MUNDO Administration Aspirin 81 mg 05/30/20 09:00 05/30/20 09:43 Aspirin 81 Mg Tab.Chew PO 81 mg DAILY MUNDO Administration Digoxin 0.125 mg 06/03/20 05:30 06/06/20 08:15 Digoxin 0.125 Mg Tablet PO 0.125 mg DAILY MUNDO Administration Docusate Sodium 100 mg 06/05/20 15:20 06/06/20 08:15 Docusate Sodium 100 Mg Capsule PO 100 mg BID MUNDO Administration Fluticasone/Vilanterol 1 puff 06/05/20 09:00 06/06/20 10:19 Fluticasone/Vilanterol 200/25 Blst.W.Dev INHALE 1 puff RDAILY MUNDO Administration Levalbuterol HCl 1.25 mg 05/31/20 14:31 06/01/20 04:15 Levalbuterol Hcl 1.25 Mg/3 Ml Vial.Neb INHALE 1.25 mg Q2H PRN Administration Dyspnea Metoprolol Tartrate 25 mg 06/03/20 05:30 06/06/20 08:15 Metoprolol Tartrate 25 Mg Tablet PO 25 mg BID MUNDO Administration Protocol Morphine Sulfate 15 mg 06/01/20 10:00 06/06/20 09:23 Morphine Sulfate Er 15 Mg Tablet.Er PO 15 mg Q12H MUNDO Administration Polyethylene Glycol 17 gm 06/05/20 15:20 06/06/20 08:14 Polyethylene Glycol 3350 17 Gm Powd.Pack PO 17 gm DAILY MUNDO Administration Sodium Chloride 2 ml 05/30/20 00:00 06/06/20 15:27 0.9 % Sodium Chloride Flush 3 Ml Syringe IVFLUSH 2 ml QSHIFT MUNDO Administration Labs CBC & Chem 7: 06/06/20 05:31 06/06/20 05:31 Microbiology Microbiology Results: Microbiology 05/30/20 17:55 Blood - Central Line Blood Culture - Final No growth after 5 days. 05/30/20 17:50 Blood - Central Line Blood Culture - Final No growth after 5 days. 06/02/20 00:10 Urine [place] Urine Culture - Final No growth. 05/30/20 17:30 Urine [place] Urine Culture - Final No growth. Assessment and Plan (1) UTI (urinary tract infection): Status: Acute (2) Sepsis: Status: Acute (3) Acute kidney injury superimposed on chronic kidney disease: Status: Acute (4) Multifocal atrial tachycardia: Status: Acute (5) Prostate cancer: Status: Acute (6) COPD (chronic obstructive pulmonary disease): Status: Acute (7) HTN (hypertension): Status: Acute Assessment and Plan: A 74 years old male who presents to the hospital septic as a result of obstructed bilateral ureteral stent which were changed by Urology. Treated in ICU with IV fluid and IV pressors. 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
[2020-06-06 16:44] LABS: SARS COV2 PCR INHOUSE NEGATIVE (Negative)
[2020-06-07] VITALS (10 sets, daily range): BP systolic 100–198; BP diastolic 63–95; PULSE 73–107; RESP 16–19; TEMP 35.8–36.6; O2SAT 96–100
[2020-06-07] MEDS: Albuterol/Iprat 2.5/0.5MG 3 ML AMPUL.NEB INHALE ×3 (06:08→18:31)
[2020-06-07 07:00] LABS: Anion Gap 17 (12-20); Blood Urea Nitrogen 39 mg/dL (9-16); Calcium 8.7 mg/dL (8.4-10.2); Carbon Dioxide 25 mmol/L (22-29); Chloride 110 mmol/L (96-108); Creatinine Clr Calc Pharmacy 48.1; Estimated Glomerular Filt Rate 57; Glucose Random 102 mg/dL (60-115); Potassium 5.3 mmol/l (3.3-5.1); Sodium 147 mmol/L (135-145)
[2020-06-07] MEDS: polyethylene glycoL 3350 17 GM POWD.PACK PO (08:05)
[2020-06-07] MEDS: Morphine Sulfate ER 15 MG TABLET.ER PO (08:06)
[2020-06-07] MEDS: Metoprolol Tartrate 25 MG TABLET PO ×2 (08:06→21:48)
[2020-06-07] MEDS: Docusate Sodium 100 MG CAPSULE PO (08:07)
[2020-06-07] MEDS: Digoxin 0.125 MG TABLET PO (08:07)
[2020-06-07] MEDS: 0.9 % Sodium Chloride Flush 3 ML SYRINGE 2 ML IVFLUSH ×2 (08:07→22:55)
--- NOTE | 2020-06-07 10:31 | PM.PNNEP ---
Subjective Subjective Interval history: Events noted No new complaints Physical Exam Vital Signs: Vital Signs: Vital Signs Temp Pulse Resp BP Pulse Ox 06/07/20 08:07 90 06/07/20 08:06 90 143/66 H 06/07/20 07:22 97.9 F 90 18 143/66 H 99 06/07/20 03:08 96.8 F 84 18 100/68 96 06/06/20 23:12 96.6 F L 66 18 155/81 H 95 06/06/20 20:15 94 165/82 H 06/06/20 19:25 97 F 87 22 H 165/82 H 94 06/06/20 15:44 96.7 F L 71 18 184/72 H 98 06/06/20 11:39 97.9 F 69 18 170/80 H 94 Body Mass Index 25.0 Const: General: cooperative Orientation/consciousness: oriented to person Neck: Neck: Yes supple Resp: Auscultation: clear to auscultation bilaterally Cardio: Heart sounds: no rubs GI: Inspection: Yes distended Palpation (GI): Soft to palpation Skin: General skin exam: no rashes or lesions noted Neuro: General: oriented to person Motor exam (neuro): No Asterixis during motor activity present Assessment & Plan Assessment and plan (1) CKD (chronic kidney disease): Status: Acute Assessment and Plan: 1. DARYL: resolved 2. CKD 3: bsl SCr 1.2 range 3. Prostate Ca 4. 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 Afib/flutter 6.Mild hypernatremia - due to free water deficit due to lasix REC: AGree with stopping Lasix Keep I > O Increase PO water intake cont IV ABx; track UOP/renal func avoid NSAIDs
[2020-06-07] MEDS: Dextrose 5 % 1,000 ML 100 ML IVCONT ×2 (11:47→21:47)
--- NOTE | 2020-06-07 12:29 | HO.PM.IMPN ---
Subjective Subjective Date of Service: 06/07/20 Interval History: weakness Cardiovascular Cardiovascular: Reports no additional cardiovascular complaints Respiratory Respiratory: Reports no additional respiratory complaints Physical Exam Vital Signs: Vital Signs: Vital Signs Temp Pulse Resp BP Pulse Ox 06/07/20 11:49 97.1 F 76 18 157/68 H 97 06/07/20 08:07 90 06/07/20 08:06 90 143/66 H 06/07/20 07:22 97.9 F 90 18 143/66 H 99 06/07/20 03:08 96.8 F 84 18 100/68 96 06/06/20 23:12 96.6 F L 66 18 155/81 H 95 06/06/20 20:15 94 165/82 H 06/06/20 19:25 97 F 87 22 H 165/82 H 94 06/06/20 15:44 96.7 F L 71 18 184/72 H 98 Body Mass Index 25.0 General: lethargic X 3, no acute distress Resp: CTA bilateral CVS: S1,S2,RRR GI: soft, non tender, non distended Neuro: motor grossly intact Psych: appropriate affect Objective Data Current Medications Generic Name Dose Route Start Last Admin Trade Name Freq PRN Reason Stop Dose Admin Acetaminophen 650 mg 05/29/20 15:01 Acetaminophen 325 Mg Tablet PO ONCE PRN Pain, Mild (Pain Scale 1-3) Albuterol/Ipratropium 3 ml 05/30/20 12:00 06/07/20 11:24 Albuterol/Iprat 2.5/0.5mg 3 Ml Ampul.Neb INHALE 3 ml RQ6H MUNDO Administration Aspirin 81 mg 05/30/20 09:00 05/30/20 09:43 Aspirin 81 Mg Tab.Chew PO 81 mg DAILY MUNDO Administration Digoxin 0.125 mg 06/03/20 05:30 06/07/20 08:07 Digoxin 0.125 Mg Tablet PO 0.125 mg DAILY MUNDO Administration Docusate Sodium 100 mg 06/06/20 21:00 06/07/20 08:07 Docusate Sodium 100 Mg Capsule PO 100 mg BID MUNDO Administration Fluticasone/Vilanterol 1 puff 06/05/20 09:00 06/07/20 10:07 Fluticasone/Vilanterol 200/25 Blst.W.Dev INHALE Not Given RDAILY MUNDO Dextrose 1,000 mls @ 100 mls/hr 06/07/20 11:15 06/07/20 11:47 D5w IVCONT 100 mls/hr .Q10H MUNDO Administration Levalbuterol HCl 1.25 mg 05/31/20 14:31 06/01/20 04:15 Levalbuterol Hcl 1.25 Mg/3 Ml Vial.Neb INHALE 1.25 mg Q2H PRN Administration Dyspnea Metoprolol Tartrate 25 mg 06/03/20 05:30 06/07/20 08:06 Metoprolol Tartrate 25 Mg Tablet PO 25 mg BID MUNDO Administration Protocol Morphine Sulfate 15 mg 06/01/20 10:00 06/07/20 08:06 Morphine Sulfate Er 15 Mg Tablet.Er PO 15 mg Q12H MUNDO Administration Polyethylene Glycol 17 gm 06/05/20 15:20 06/07/20 08:05 Polyethylene Glycol 3350 17 Gm Powd.Pack PO 17 gm DAILY MUNDO Administration Sodium Chloride 2 ml 05/30/20 00:00 06/07/20 08:07 0.9 % Sodium Chloride Flush 3 Ml Syringe IVFLUSH 2 ml QSHIFT MUNDO Administration Labs CBC & Chem 7: 06/06/20 05:31 06/07/20 05:56 Microbiology Microbiology Results: Microbiology 05/30/20 17:55 Blood - Central Line Blood Culture - Final No growth after 5 days. 05/30/20 17:50 Blood - Central Line Blood Culture - Final No growth after 5 days. 06/02/20 00:10 Urine [place] Urine Culture - Final No growth. 05/30/20 17:30 Urine [place] Urine Culture - Final No growth. Assessment and Plan (1) Sepsis: Status: Acute (2) UTI (urinary tract infection): Status: Acute (3) Atrial flutter with rapid ventricular response: Status: Acute (4) Multifocal atrial tachycardia: Status: Acute (5) Acute kidney injury superimposed on chronic kidney disease: Status: Acute (6) Prostate cancer: Status: Acute Assessment and Plan: 74 years old male who presented to the hospital septic as a result of obstructed bilateral ureteral stent which were changed by Urology. Treated in ICU with IV fluid and IV pressors. 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
--- NOTE | 2020-06-07 14:08 | MHC.CM.PN ---
DP STR via BLS. Called Shaye SOLOMON. Reviewed facilities and barriers to DC. [facility] is the only facility willing to provide his Prostate CA medication, XTANDI. CM will follow.
[2020-06-08 03:26] VITALS: BP 158/75; PULSE 79; RESP 16; TEMP 36.4; O2SAT 90
[2020-06-08 06:33] LABS: MANUAL DIFF FLAG NO
--- NOTE | 2020-06-08 06:41 | PC.NURSE ---
PATIENT SLEEPING/DROWSY THROUGHOUT SHIFT. PT UNCOOPERATIVE WITH ASSESSMENTS. PT ALERT TO SELF AND PLACE, REFUSING TO OPEN EYES AND REFUSED SOME MEDICATIONS. PT INCONTINENT OF URINE AND STOOL.
[2020-06-08 06:45] LABS: Basophils Percent Auto 0.3 % (0-2); Eosinophils Absolute Auto 0.4 X10*3/uL (0.0-0.4); Eosinophils Percent Auto 3.7 % (0-4); Hematocrit 27.5 % (42-52); Hemoglobin 8.3 g/dl (14.0-18.0); Imm Gran Abs Auto 0.06 X10*3/uL (0.00-0.03); Imm Gran Pct Auto 0.5 % (0.0-0.4); Lymphocytes Absolute Auto 1.1 X10*3/uL (1.2-4.9); Lymphocytes Percent Auto 9.4 % (20-40); Mean Corpuscular HGB Conc 30.2 g/dl (31.0-36.0); Mean Corpuscular Hemoglobin 28.9 pg (27.0-33.0); Mean Corpuscular Volume 95.8 fL (80-98); Mean Platelet Volume 10.4 fL (9.4-12.4); Monocytes Percent Auto 8.9 % (2-11); Neutrophils Absolute Auto 8.9 X10*3/uL (2.0-8.3); Neutrophils Percent Auto 77.2 % (45-73); Platelet Count 302 X10*3/uL (160-400); Red Blood Count 2.87 X10*6/uL (4.60-5.80); Red Cell Distribution Width 15.6 % (11.0-16.0); White Blood Count 11.6 X10*3/uL (4.8-10.8)
[2020-06-08 06:55] VITALS: BP 148/72; PULSE 70; RESP 20; TEMP 36.6; O2SAT 94
[2020-06-08 07:16] LABS: Anion Gap 10 (12-20); Blood Urea Nitrogen 35 mg/dL (9-16); Calcium 8.3 mg/dL (8.4-10.2); Carbon Dioxide 30 mmol/L (22-29); Chloride 109 mmol/L (96-108); Creatinine Clr Calc Pharmacy 53.2; Estimated Glomerular Filt Rate > 60; Glucose Fasting 113 mg/dL (60-99); Potassium 4.3 mmol/l (3.3-5.1); Sodium 145 mmol/L (135-145)
[2020-06-08 08:38] VITALS: BP 148/72; PULSE 70
[2020-06-08] MEDS: Digoxin 0.125 MG TABLET PO (08:38)
[2020-06-08] MEDS: polyethylene glycoL 3350 17 GM POWD.PACK PO (08:38)
[2020-06-08] MEDS: Metoprolol Tartrate 25 MG TABLET PO ×2 (08:38→21:03)
[2020-06-08] MEDS: Morphine Sulfate ER 15 MG TABLET.ER PO ×2 (08:39→21:04)
[2020-06-08] MEDS: Dextrose 5 % 1,000 ML 100 ML IVCONT ×2 (08:39→21:07)
[2020-06-08] MEDS: 0.9 % Sodium Chloride Flush 3 ML SYRINGE 2 ML IVFLUSH ×2 (08:39→21:04)
[2020-06-08] MEDS: Docusate Sodium 100 MG CAPSULE PO (08:40)
--- NOTE | 2020-06-08 10:40 | P.PNIM_ITS ---
Subjective Subjective Interval History: weakness Physical Exam 2 Vital Signs: Vital Signs: Vital Signs Temp Pulse Resp BP Pulse Ox 06/08/20 08:38 70 148/72 H 06/08/20 06:55 97.9 F 70 20 148/72 H 94 06/08/20 03:26 97.6 F 79 16 158/75 H 90 L 06/07/20 23:04 96.5 F L 73 19 115/64 100 06/07/20 21:48 89 178/95 H 06/07/20 19:57 97.2 F 107 H 16 153/63 H 99 06/07/20 15:07 97.3 F 75 18 142/68 H 100 06/07/20 13:54 76 157/68 H 97 06/07/20 11:49 97.1 F 76 18 157/68 H 97 Body Mass Index 25.0 General: lethargic X 3, no acute distress, a little more alert than yesterday Resp: CTA bilateral CVS: S1,S2,RRR GI: soft, non tender, non distended Neuro: motor grossly intact Psych: appropriate affect Const: General: cooperative, comfortable, no acute distress, alert, awake and tired appearing Nutritional Appearance: well nourished Orientation/consciousness: oriented to person, oriented to place, oriented to time and patient oriented x3 Limitations: no limitations and No language barrier HENMT: Head: Yes normal to inspection and Yes atraumatic Eyes: General: appearance normal, both eyes and all related structures Pupils: Equal, round and reactive pupils present Neck: Neck: Yes normal visual inspection, Yes full ROM, Yes no lymphadenopathy, Yes supple and Yes no JVD Thyroid: Thyroid normal Carotids: normal carotid upstroke Lymphatic: no lymphadenopathy noted Chest: Chest palpation & inspection: normal inspection of the chest Resp: Effort & Inspection: normal respiratory effort, able to speak in complete sentences, decreased respiratory effort and labored Auscultation: clear to auscultation bilaterally Cardio: Jugular venous distension: no JVD and other ( CVP is 5) Palpation: normal PMI Rate: regular rate and Other ( irregular rate all consistent with wandering atrial pacemaker and some per) Rhythm: regular rhythm and abnormal rhythm Heart sounds: S1 normal heart sound present, S2 normal heart sound present and no rubs GI: Inspection: Yes normal to inspection and Yes distended Palpation (GI): Soft to palpation and Tenderness to palpation present (GI) (flank pain) Percussion: Yes normal to percussion and Yes bilateral flank dullness : Testes: other (g[place]ens in place) Skin: General skin exam: no rashes or lesions noted Neuro: General: oriented to person, oriented to place, oriented to time, patient oriented x3, no focal motor deficits and CN's II-XI intact bilaterally Cranial nerves: Yes CN's II-XII intact bilaterally, Yes Equal, round and reactive pupils present and Yes Bilaterally intact EOM present Cognition (Neuro): normal cognition Motor exam (neuro): No Asterixis during motor activity present Extrem: General: Yes full ROM and Yes no clubbing, cyanosis or edema Psych: Appearance: grossly normal Objective Data Current Medications Generic Name Dose Route Start Last Admin Trade Name Freq PRN Reason Stop Dose Admin Acetaminophen 650 mg 05/29/20 15:01 Acetaminophen 325 Mg Tablet PO ONCE PRN Pain, Mild (Pain Scale 1-3) Albuterol/Ipratropium 3 ml 06/07/20 18:00 06/08/20 06:22 Albuterol/Iprat 2.5/0.5mg 3 Ml Ampul.Neb INHALE Not Given RQ6H MUNDO Aspirin 81 mg 05/30/20 09:00 05/30/20 09:43 Aspirin 81 Mg Tab.Chew PO 81 mg DAILY MUNDO Administration Digoxin 0.125 mg 06/03/20 05:30 06/08/20 08:38 Digoxin 0.125 Mg Tablet PO 0.125 mg DAILY MUNDO Administration Docusate Sodium 100 mg 06/06/20 21:00 06/08/20 08:40 Docusate Sodium 100 Mg Capsule PO 100 mg BID MUNDO Administration Fluticasone/Vilanterol 1 puff 06/05/20 09:00 06/08/20 07:58 Fluticasone/Vilanterol 200/25 Blst.W.Dev INHALE Not Given RDAILY MUNDO Dextrose 1,000 mls @ 100 mls/hr 06/07/20 11:15 06/08/20 08:39 D5w IVCONT 100 mls/hr .Q10H MUNDO Administration Levalbuterol HCl 1.25 mg 06/07/20 15:15 Levalbuterol Hcl 1.25 Mg/3 Ml Vial.Neb INHALE Q2H PRN Dyspnea Metoprolol Tartrate 25 mg 06/03/20 05:30 06/08/20 08:38 Metoprolol Tartrate 25 Mg Tablet PO 25 mg BID MUNDO Administration Protocol Morphine Sulfate 15 mg 06/01/20 10:00 06/08/20 08:39 Morphine Sulfate Er 15 Mg Tablet.Er PO 15 mg Q12H MUNDO Administration Polyethylene Glycol 17 gm 06/05/20 15:20 06/08/20 08:38 Polyethylene Glycol 3350 17 Gm Powd.Pack PO 17 gm DAILY MUNDO Administration Sodium Chloride 2 ml 05/30/20 00:00 06/08/20 08:39 0.9 % Sodium Chloride Flush 3 Ml Syringe IVFLUSH 2 ml QSHIFT MUNDO Administration Labs CBC & Chem 7: 06/08/20 05:36 06/08/20 05:36 Microbiology Microbiology Results: Microbiology 05/30/20 17:55 Blood - Central Line Blood Culture - Final No growth after 5 days. 05/30/20 17:50 Blood - Central Line Blood Culture - Final No growth after 5 days. 06/02/20 00:10 Urine [place] Urine Culture - Final No growth. 05/30/20 17:30 Urine [place] Urine Culture - Final No growth. Assessment and Plan (1) Sepsis: Status: Acute (2) UTI (urinary tract infection): Status: Acute (3) Atrial flutter with rapid ventricular response: Status: Acute (4) Multifocal atrial tachycardia: Status: Acute (5) Acute kidney injury superimposed on chronic kidney disease: Status: Acute (6) Prostate cancer: Status: Acute Assessment and Plan: 74 years old male who presented to the hospital septic as a result of obstructed bilateral ureteral stent which were changed by Urology. Treated in ICU with IV fluid and IV pressors. 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 Negative urine and blood cutlures completed 7 days Meropenem DC [place] PT eval recommend STR hypernatremia improved from 148 to 145 continue d5w, monitor COPD Exacerbation bronchodilator nebulizers breo, prn albuterol constipation Secondary to chronic opioids Received methylnaltrexone in ICU Scheduled Miralax and Colace report bowel movement DARYL on CKD Kidney function improving back to baseline continue to monitor electrolytes and BMP MATs, AFib \Rate controlled asa Not on anticoagulation due to history of hematuria HTN amlodipine prostate cancer xtandi cKD III stable monitor DVT PPX Heparin
--- NOTE | 2020-06-08 10:48 | PM.PNNEP ---
Subjective Subjective Interval history: Events noted Physical Exam Vital Signs: Vital Signs: Vital Signs Temp Pulse Resp BP Pulse Ox 06/08/20 08:38 70 148/72 H 06/08/20 06:55 97.9 F 70 20 148/72 H 94 06/08/20 03:26 97.6 F 79 16 158/75 H 90 L 06/07/20 23:04 96.5 F L 73 19 115/64 100 06/07/20 21:48 89 178/95 H 06/07/20 19:57 97.2 F 107 H 16 153/63 H 99 06/07/20 15:07 97.3 F 75 18 142/68 H 100 06/07/20 13:54 76 157/68 H 97 06/07/20 11:49 97.1 F 76 18 157/68 H 97 Body Mass Index 25.0 Const: General: cooperative Orientation/consciousness: oriented to person Neck: Neck: Yes supple Resp: Auscultation: clear to auscultation bilaterally Cardio: Heart sounds: no rubs GI: Inspection: Yes distended Palpation (GI): Soft to palpation Skin: General skin exam: no rashes or lesions noted Neuro: General: oriented to person Motor exam (neuro): No Asterixis during motor activity present Assessment & Plan Assessment and plan (1) CKD (chronic kidney disease): Status: Acute Assessment and Plan: 1. DARYL: resolved 2. CKD 3: bsl SCr 1.2 range 3. Prostate Ca 4. 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 Afib/flutter 6.Mild hypernatremia - due to free water deficit due to lasix ; Na back to normal REC: AGree with stopping Lasix Keep I > O Increase PO water intake
[2020-06-08 11:11] VITALS: BP 158/83; PULSE 54; RESP 20; TEMP 36.1; O2SAT 99
[2020-06-08] MEDS: Albuterol/Iprat 2.5/0.5MG 3 ML AMPUL.NEB INHALE ×2 (11:15→18:04)
[2020-06-08] MEDS: Dextrose 5 % 1,000 ML 1000 ML IVCONT (17:25)
[2020-06-08 19:27] VITALS: BP 168/70; PULSE 72; RESP 18; O2SAT 94
[2020-06-08 21:03] VITALS: BP 158/70; PULSE 96
[2020-06-09] VITALS (8 sets, daily range): BP systolic 139–188; BP diastolic 56–117; PULSE 65–81; RESP 17–18; TEMP 35.7–36.8; O2SAT 90–97
[2020-06-09] MEDS: ondansetron HCL 4 MG/2 ML VIAL IVPUSH (00:27)
[2020-06-09 06:33] LABS: MANUAL DIFF FLAG NO
[2020-06-09 06:53] LABS: Basophils Percent Auto 0.3 % (0-2); Eosinophils Absolute Auto 0.3 X10*3/uL (0.0-0.4); Eosinophils Percent Auto 3.1 % (0-4); Hematocrit 27.3 % (42-52); Hemoglobin 8.3 g/dl (14.0-18.0); Imm Gran Abs Auto 0.08 X10*3/uL (0.00-0.03); Imm Gran Pct Auto 0.8 % (0.0-0.4); Lymphocytes Absolute Auto 1.1 X10*3/uL (1.2-4.9); Lymphocytes Percent Auto 10.9 % (20-40); Mean Corpuscular HGB Conc 30.4 g/dl (31.0-36.0); Mean Corpuscular Hemoglobin 28.6 pg (27.0-33.0); Mean Corpuscular Volume 94.1 fL (80-98); Mean Platelet Volume 10.3 fL (9.4-12.4); Monocytes Absolute Auto 0.8 X10*3/uL (0.1-1.2); Monocytes Percent Auto 7.8 % (2-11); Neutrophils Absolute Auto 7.8 X10*3/uL (2.0-8.3); Neutrophils Percent Auto 77.1 % (45-73); Platelet Count 302 X10*3/uL (160-400); Red Cell Distribution Width 15.3 % (11.0-16.0); White Blood Count 10.1 X10*3/uL (4.8-10.8)
[2020-06-09 07:21] LABS: Anion Gap 9 (12-20); Blood Urea Nitrogen 26 mg/dL (9-16); Calcium 8.2 mg/dL (8.4-10.2); Carbon Dioxide 31 mmol/L (22-29); Chloride 103 mmol/L (96-108); Creatinine Clr Calc Pharmacy 59.6; Estimated Glomerular Filt Rate > 60; Glucose Fasting 119 mg/dL (60-99); Potassium 4.2 mmol/l (3.3-5.1); Sodium 139 mmol/L (135-145)
[2020-06-09] MEDS: 0.9 % Sodium Chloride Flush 3 ML SYRINGE 2 ML IVFLUSH (08:03)
--- NOTE | 2020-06-09 10:08 | PM.PNNEP ---
Subjective Subjective Interval history: Events noted Still anemic Non oliguric Physical Exam Vital Signs: Vital Signs: Vital Signs Temp Pulse Resp BP Pulse Ox 06/09/20 07:49 96.2 F L 67 18 142/56 H 97 06/09/20 03:12 98.2 F 68 17 153/85 H 96 06/09/20 00:00 97.9 F 65 17 139/72 93 06/08/20 21:03 96 158/70 H 06/08/20 19:27 72 18 168/70 H 94 06/08/20 11:11 97 F 54 20 158/83 H 99 Body Mass Index 25.0 Const: General: cooperative Orientation/consciousness: oriented to person Neck: Neck: Yes supple Resp: Auscultation: clear to auscultation bilaterally Cardio: Heart sounds: no rubs GI: Inspection: Yes distended Palpation (GI): Soft to palpation Skin: General skin exam: no rashes or lesions noted Neuro: General: oriented to person Motor exam (neuro): No Asterixis during motor activity present Assessment & Plan Assessment and plan (1) CKD (chronic kidney disease): Status: Acute Assessment and Plan: 1. DARYL: resolved 2. CKD 3: bsl SCr 1.2 range 3. Prostate Ca 4. 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 Afib/flutter 6.Mild hypernatremia - due to free water deficit due to lasix ; Na back to normal REC: AGree with stopping Lasix Keep I > O Increase PO water intake Watch alkalosis and anemia
[2020-06-09] MEDS: Metoprolol Tartrate 25 MG TABLET PO (10:22)
[2020-06-09] MEDS: Digoxin 0.125 MG TABLET PO (10:23)
[2020-06-09] MEDS: Morphine Sulfate ER 15 MG TABLET.ER PO (10:23)
[2020-06-09] MEDS: Docusate Sodium 100 MG CAPSULE PO (10:24)
[2020-06-09] MEDS: polyethylene glycoL 3350 17 GM POWD.PACK PO (10:24)
--- NOTE | 2020-06-09 11:02 | PM.DS ---
DS: Providers Provider Date of admission: 05/29/20 20:02 Primary care physician: FEDE Camacho Consults: 05/29/20 18:26 Consult to Hospitalist Stat Consulting Provider: Yoel Bear Reason for consultation: post procedure SIRS response Has provider been notified: Yes 05/29/20 21:59 Consult to Physician Routine Consulting Provider: Infectious Disease Reason for consultation: sepsis secondary to UTI Has provider been notified: No 05/29/20 22:08 Consult to Nephrology Routine Consulting Provider: [facility] Reason for consultation: CKD Has provider been notified: No Consult to Urology Routine Consulting Provider: [facility] [place] [facility] Reason for consultation: s/p ureteral stent removal Has provider been notified: No 05/30/20 11:21 Consult to Infectious Diseases Routine Consulting Provider: Grace Iqbal Reason for consultation: sepsis 05/30/20 12:26 Consult to Cardiology Routine Consulting Provider: Luis M Rudolph Reason for consultation: atrial tachycardia 06/03/20 07:48 Consult to Infectious Diseases Routine Consulting Provider: Mariela Singh Reason for consultation: sepsis Has provider been notified: Yes DS: Diagnosis Discharge Diagnosis (1) CKD (chronic kidney disease): Status: Acute (2) Metabolic encephalopathy: Status: Acute (3) Hypernatremia: Status: Acute DS: Summary Hospital Course Hospital Course: from initial H&P: 4 y/o elderly male who presented to the hospital for an elective urology procedure with Dr Bear for bilateral ureteral stent removal. After procedure was completed patient was noted to meet sepsis criteria (fever of 101, HR of 116-120, tachypneic 22 with a suspected source of the infection been the urine). Basic labs including Bcx/Ucx was obtained in PACU, patient given one dose of gentamycin per Urology on the case and Medicine call for evaluation and direct admission. Patient has significant hx of prostate cancer, has been on xtandi and apalutamide. Last admission to our hospital in 01/11 due to MDR bacteria which was treated and discharged with 4 days of antbx as outpatient. Now patient presents for previously stated procedure which got complicated with sepsis. Patient was seen and evaluated at the bedside, laying down in bed in no acute distress. Awake, alert, oriented x 3. Reports a chronic pain in the chest which is exacerbated with palpation of the chest wall. No respiratory distress. Chills were present earlier. On physical givens is in place with evidence of mild hematuria. HR now 110-118 bpm, BP stable on IV hydration. Lactate to be obtained now. No leukocytosis on CBC, Hgb now of 7.9 (patient baseline of 8.0), creatinine of 1.82 which is worse than on previous admission 1.67. Rest of the labs prending. hospital course: Patient was admitted for sepsis after urological manipulation, he completed 7 days of meropenem, cultures were negative, sepsis resolved. Course was complicated by acute on chronic kidney injury which resolved. Course also complicated by atrial fibrillation, his amlodipine was changed to metoprolol and digoxin, anticoagulation was not given due to history of hematuria. Course was also complicated by metabolic encephalopathy due to hypernatremia. This resolved with D5W, sodium is now below 140 and patient is much more alert, he is encouraged to continue oral intake. Due to debility patient will be discharged to custodial facility for physical therapy. Time Spent with Patient Time attestation: Total time spent providing and/or coordinating discharge services: Physical Exam Vital Signs: Vital Signs: Vital Signs Temp Pulse Resp BP Pulse Ox 06/09/20 10:23 81 06/09/20 10:22 81 188/117 H 06/09/20 10:16 67 142/56 H 97 06/09/20 07:49 96.2 F L 67 18 142/56 H 97 06/09/20 03:12 98.2 F 68 17 153/85 H 96 06/09/20 00:00 97.9 F 65 17 139/72 93 06/08/20 21:03 96 158/70 H 06/08/20 19:27 72 18 168/70 H 94 06/08/20 11:11 97 F 54 20 158/83 H 99 Body Mass Index 25.0 Resp: Effort & Inspection: able to speak in complete sentences Auscultation: clear to auscultation bilaterally Cardio: Heart sounds: S1 normal heart sound present and S2 normal heart sound present DS: Data Data Completed and Pending Labs on day of discharge: Labs from last 24 hours 06/09/20 06/09/20 05:47 05:47 WBC 10.1 RBC 2.90 L Hgb 8.3 L Hct 27.3 L MCV 94.1 MCH 28.6 MCHC 30.4 L RDW 15.3 Plt Count 302 MPV 10.3 Immature Gran % (Auto) 0.8 H Neut % (Auto) 77.1 H Lymph % (Auto) 10.9 L [place] % (Auto) 7.8 Eos % (Auto) 3.1 Baso % (Auto) 0.3 Lymph # (Auto) 1.1 L [place] # (Auto) 0.8 Eos # (Auto) 0.3 Baso # (Auto) 0.0 Abs Immat Gran (auto) 0.08 H Absolute Neuts (auto) 7.8 Absolute Nucleated RBC 0.000 Nucleated RBC % (auto) 0.0 Sodium 139 Potassium 4.2 Chloride 103 Carbon Dioxide 31 H Anion Gap 9 L BUN 26 H Creatinine 1.00 Estim Creat Clear Calc 59.6 Estimated GFR > 60 Fasting Glucose 119 H Calcium 8.2 L Discharge Plan Discharge Patient Disposition: er [facility] Referrals: Yoel Bear MD [Physician] - 3 Months (3 months for office assessment) Froilan Ford FNP- [Primary Care Provider] - Discharge Medications: New digoxin 125 mcg (0.125 mg) Tablet 125 mcg PO DAILY Qty: 30 RF: 0 metoprolol tartrate 25 mg Tablet 25 mg PO BID Qty: 60 RF: 0 Continued albuterol sulfate 90 mcg/actuation HFA aerosol inhaler 2 puff PO Q6H PRN (Reason: shortness of breath or wheezing) 30 Days Qty: 18 RF: 0 acetaminophen [Tylenol] 325 mg Tablet 650 mg PO Q6H PRN (Reason: Pain, Mild) RF: 0 tamsulosin 0.4 mg Capsule 0.4 mg PO DAILY RF: 0 aspirin 81 mg Tablet 81 mg PO DAILY RF: 0 fluticasone propionate 50 mcg/actuation [place],Suspension 1 spray INTRANASAL DAILY RF: 0 Phenylephrine CM 10 mg DAILY RF: 0 Vitamin D3 1 cap PO DAILY RF: 0 vitamin A84-asooz acid 100 mcg PO DAILY RF: 0 ipratropium-albuterol 0.5 mg-3 mg(2.5 mg base)/3 mL solution for nebulization 1 amp inhalation Q6H RF: 0 Xtandi 40 mg capsule 40 mg PO DAILY RF: 0 vitamin B complex Tablet 1 tab PO DAILY RF: 0 furosemide 20 mg Tablet 20 mg PO QAM RF: 0 multivitamin Tablet 1 tab PO DAILY RF: 0 hydromorphone 2 mg Tablet 2 mg PO Q6H PRN (Reason: Pain (Scale Score 7-10)) RF: 0 docusate sodium 100 mg Capsule 100 mg PO DAILY RF: 0 bisacodyl 5 mg Tablet 5 mg PO BEDTIME RF: 0 prochlorperazine maleate 5 mg Tablet 5 mg PO QID PRN (Reason: Nausea And Vomiting) RF: 0 Breo Ellipta 200-25 mcg/dose Blister With Device 1 inh INHALATION DAILY RF: 0 Discontinued cephalexin 500 mg Tablet 500 mg PO Q12H RF: 0 amlodipine 10 mg tablet 10 mg PO DAILY RF: 0 Discharge Orders: Discharge Order (Routine); Ordered 06/09/20 Ordered By: Ben Stevens Activity on Discharge: As tolerated Visit Report Forms: Patient Portal Discharge page Care Plan Goals: recovery Health Concerns: afib, prostate ca Plan of Treatment: amlodipine changed to metoprolol and dig, follow up urology
[2020-06-09] MEDS: Albuterol/Iprat 2.5/0.5MG 3 ML AMPUL.NEB INHALE (11:59)
--- NOTE | 2020-06-09 15:06 | MHC.CM.PN ---
Patient has been medically cleared for dc to SNF today. Patient will dc to [facility] today at 5 PM, via [facility]. Patient and Niece/Shaye @ [phone] are aware of and in agreement with the dc plan.Second IMM addressed with Patient.
== END 2020-06-09 17:30 | disposition skilled nursing facility (03) | DRG 856 ==
LOC: HO.IMC 23:27 → HO.ICU 05-30 15:16 → HO.IMC 06-03 18:12
PROVIDERS: Internal Medicine; Internal Medicine Cardiovascular Disease; Physician Assistant; Student in an Organized Health Care Education/Training Program; Urology; Admitting Provider Internal Medicine; PCP Nurse Practitioner Family; Visit Provider Internal Medicine
PROC: 0T788DZ Dilation of Bilateral Ureters with Intraluminal Device, Via Natural or Artificial Opening Endoscopic (ICD-10-PCS; principal; 2020-05-29 12:00)
DX: T81.44XA Sepsis following a procedure, initial encounter (principal); A41.9 Sepsis, unspecified organism; R65.21 Severe sepsis with septic shock; I50.33 Acute on chronic diastolic (congestive) heart failure; I13.0 Hypertensive heart and chronic kidney disease with heart failure and stage 1 through stage 4 chronic kidney disease, or unspecified chronic kidney disease; N17.9 Acute kidney failure, unspecified; N13.6 Pyonephrosis; J44.1 Chronic obstructive pulmonary disease with (acute) exacerbation; E87.0 Hyperosmolality and hypernatremia; C61 Malignant neoplasm of prostate; N18.30 Chronic kidney disease, stage 3 unspecified; D63.1 Anemia in chronic kidney disease; E03.9 Hypothyroidism, unspecified; I48.91 Unspecified atrial fibrillation; I95.9 Hypotension, unspecified; K59.03 Drug induced constipation; T40.2X5A Adverse effect of other opioids, initial encounter; Z20.828 Contact with and (suspected) exposure to other viral communicable diseases; I73.9 Peripheral vascular disease, unspecified; Z88.5 Allergy status to narcotic agent; Z88.6 Allergy status to analgesic agent; Z79.51 Long term (current) use of inhaled steroids; Z79.82 Long term (current) use of aspirin; Z79.899 Other long term (current) drug therapy
CPT/HCPCS: 36415; 71045; 74018; 74176; 76775; 80048; 81001; 82803; 83605; 83615; 83735; 83880; 84100; 84145; 84484; 85025; 85610; 85730; 86140; 86850; 86900; 86901; 86920; 86923; 87040; 87086; 87635; 93005; 93010; 94640; 97110; 97116; 97163; 97530; 99225; 99232; C1758; C1769; C2617; J0131; J1160; J1580; J1940; J2212; J2405; J2765; J3010; J3475; P9016; Q9967

== ENCOUNTER 2020-06-12 | Outpatient (REF) | payer MEDICARE, SELFPAY ==
[2020-06-12 06:03] LABS: Hematocrit 31.2 % (42-52); Hemoglobin 9.3 g/dl (14.0-18.0); Mean Corpuscular HGB Conc 29.8 g/dl (31.0-36.0); Mean Corpuscular Hemoglobin 28.2 pg (27.0-33.0); Mean Corpuscular Volume 94.5 fL (80-98); Mean Platelet Volume 11.1 fL (9.4-12.4); Platelet Count 382 X10*3/uL (160-400); Red Cell Distribution Width 15.1 % (11.0-16.0); White Blood Count 8.7 X10*3/uL (4.8-10.8)
[2020-06-12 06:18] LABS: Alanine Aminotransferase 15 U/L (0-40); Alkaline Phosphatase 82 U/L (39-117); Anion Gap 16 (12-20); Aspartate Amino Transferase 18 U/L (5-37); Bilirubin Total 0.2 mg/dL (0.0-1.0); Blood Urea Nitrogen 21 mg/dL (9-16); Calcium 8.7 mg/dL (8.4-10.2); Carbon Dioxide 28 mmol/L (22-29); Chloride 100 mmol/L (96-108); Estimated Glomerular Filt Rate 50; Glucose Random 100 mg/dL (60-115); Potassium 4.6 mmol/l (3.3-5.1); Sodium 139 mmol/L (135-145); Total Protein 6.3 g/dL (6.5-8.0)
== END 2020-06-12 00:01 | disposition home or self-care (01) ==
LOC: HO.MMNH1L
PROVIDERS: Visit Provider Family Medicine
DX: N18.9 Chronic kidney disease, unspecified (principal)
CPT/HCPCS: 36415; 80053; 85027

== ENCOUNTER 2020-06-19 | Outpatient (REF) | payer MEDICARE, SELFPAY ==
[2020-06-19 08:43] LABS: Hematocrit 26.4 % (42-52); Hemoglobin 7.8 g/dl (14.0-18.0); Mean Corpuscular HGB Conc 29.5 g/dl (31.0-36.0); Mean Corpuscular Hemoglobin 28.5 pg (27.0-33.0); Mean Corpuscular Volume 96.4 fL (80-98); Mean Platelet Volume 10.7 fL (9.4-12.4); Platelet Count 342 X10*3/uL (160-400); Red Blood Count 2.74 X10*6/uL (4.60-5.80); Red Cell Distribution Width 16.4 % (11.0-16.0); White Blood Count 7.8 X10*3/uL (4.8-10.8)
[2020-06-19 09:52] LABS: Anion Gap 13 (12-20); Blood Urea Nitrogen 17 mg/dL (9-16); Calcium 8.1 mg/dL (8.4-10.2); Carbon Dioxide 27 mmol/L (22-29); Chloride 104 mmol/L (96-108); Estimated Glomerular Filt Rate 45; Glucose Random 76 mg/dL (60-115); Potassium 4.7 mmol/l (3.3-5.1); Sodium 139 mmol/L (135-145)
== END 2020-06-19 00:01 | disposition home or self-care (01) ==
LOC: HO.MMNH1L
PROVIDERS: Visit Provider Family Medicine
DX: N18.9 Chronic kidney disease, unspecified (principal)
CPT/HCPCS: 36415; 80048; 85027

== ENCOUNTER 2020-06-26 | Outpatient (REF) | payer MEDICARE, SELFPAY ==
[2020-06-26 05:25] LABS: Hemoglobin 8.7 g/dl (14.0-18.0); Mean Corpuscular Volume 96.7 fL (80-98); Mean Platelet Volume 10.4 fL (9.4-12.4); Platelet Count 324 X10*3/uL (160-400); Red Cell Distribution Width 17.1 % (11.0-16.0); White Blood Count 8.8 X10*3/uL (4.8-10.8)
[2020-06-26 05:51] LABS: Anion Gap 15 (12-20); Blood Urea Nitrogen 22 mg/dL (9-16); Calcium 8.5 mg/dL (8.4-10.2); Carbon Dioxide 23 mmol/L (22-29); Chloride 106 mmol/L (96-108); Estimated Glomerular Filt Rate 38; Glucose Random 103 mg/dL (60-115); Potassium 4.4 mmol/l (3.3-5.1); Sodium 140 mmol/L (135-145)
== END 2020-06-26 00:01 | disposition home or self-care (01) ==
LOC: HO.MMNH1L
PROVIDERS: Visit Provider Family Medicine
DX: Z20.828 Contact with and (suspected) exposure to other viral communicable diseases (principal); N18.9 Chronic kidney disease, unspecified
CPT/HCPCS: 36415; 80048; 85027; U0003

== ENCOUNTER 2020-06-27 06:40 | Outpatient (REF) | payer MEDICARE, SELFPAY ==
[2020-06-27 06:54] LABS: MANUAL DIFF FLAG NO
[2020-06-27 06:58] LABS: Basophils Percent Auto 0.5 % (0-2); Eosinophils Absolute Auto 0.9 X10*3/uL (0.0-0.4); Eosinophils Percent Auto 11.4 % (0-4); Hematocrit 29.6 % (42-52); Hemoglobin 9.1 g/dl (14.0-18.0); Imm Gran Abs Auto 0.02 X10*3/uL (0.00-0.03); Imm Gran Pct Auto 0.2 % (0.0-0.4); Lymphocytes Absolute Auto 1.6 X10*3/uL (1.2-4.9); Lymphocytes Percent Auto 19.9 % (20-40); Mean Corpuscular HGB Conc 30.7 g/dl (31.0-36.0); Mean Corpuscular Hemoglobin 29.3 pg (27.0-33.0); Mean Corpuscular Volume 95.2 fL (80-98); Mean Platelet Volume 10.3 fL (9.4-12.4); Monocytes Absolute Auto 0.7 X10*3/uL (0.1-1.2); Monocytes Percent Auto 8.5 % (2-11); Neutrophils Absolute Auto 4.9 X10*3/uL (2.0-8.3); Neutrophils Percent Auto 59.5 % (45-73); Platelet Count 347 X10*3/uL (160-400); Red Blood Count 3.11 X10*6/uL (4.60-5.80); White Blood Count 8.2 X10*3/uL (4.8-10.8)
[2020-06-27 07:34] LABS: Alanine Aminotransferase 8 U/L (0-40); Alkaline Phosphatase 78 U/L (39-117); Anion Gap 14 (12-20); Aspartate Amino Transferase 13 U/L (5-37); Bilirubin Direct < 0.2 mg/dL (0.0-0.5); Bilirubin Total 0.5 mg/dL (0.0-1.0); Blood Urea Nitrogen 22 mg/dL (9-16); Calcium 8.4 mg/dL (8.4-10.2); Carbon Dioxide 24 mmol/L (22-29); Chloride 108 mmol/L (96-108); Estimated Glomerular Filt Rate 38; Glucose Random 84 mg/dL (60-115); Potassium 4.5 mmol/l (3.3-5.1); Sodium 141 mmol/L (135-145); Total Protein 5.9 g/dL (6.5-8.0)
[2020-06-27 07:56] LABS: Prostate Specific Antigen 18.09 ng/mL (<0.05-4.0)
== END 2020-06-27 06:41 | disposition home or self-care (01) ==
LOC: HO.MMNH1L 06:40
PROVIDERS: Visit Provider Family Medicine
DX: J44.9 Chronic obstructive pulmonary disease, unspecified (principal)
CPT/HCPCS: 36415; 80048; 80076; 84153; 85025

== ENCOUNTER 2020-07-03 | Outpatient (REF) | payer MEDICARE, SELFPAY ==
[2020-07-03 06:38] LABS: Hematocrit 30.4 % (42-52); Hemoglobin 9.3 g/dl (14.0-18.0); Mean Corpuscular HGB Conc 30.6 g/dl (31.0-36.0); Mean Corpuscular Hemoglobin 29.2 pg (27.0-33.0); Mean Corpuscular Volume 95.3 fL (80-98); Mean Platelet Volume 10.6 fL (9.4-12.4); Platelet Count 286 X10*3/uL (160-400); Red Blood Count 3.19 X10*6/uL (4.60-5.80); Red Cell Distribution Width 17.2 % (11.0-16.0); White Blood Count 8.2 X10*3/uL (4.8-10.8)
[2020-07-03 07:06] LABS: Anion Gap 12 (12-20); Blood Urea Nitrogen 18 mg/dL (9-16); Calcium 8.8 mg/dL (8.4-10.2); Carbon Dioxide 25 mmol/L (22-29); Chloride 106 mmol/L (96-108); Estimated Glomerular Filt Rate 41; Glucose Random 86 mg/dL (60-115); Potassium 4.5 mmol/l (3.3-5.1); Sodium 138 mmol/L (135-145)
== END 2020-07-03 00:01 | disposition home or self-care (01) ==
LOC: HO.MMNH1L
PROVIDERS: Visit Provider Family Medicine
DX: S42.302A Unspecified fracture of shaft of humerus, left arm, initial encounter for closed fracture (principal); Z91.81 History of falling; N39.0 Urinary tract infection, site not specified
CPT/HCPCS: 36415; 80048; 85027

== ENCOUNTER 2021-05-31 15:18 | Outpatient (REF) | payer MEDICARE, SELFPAY ==
[2021-05-31 15:38] LABS: MANUAL DIFF FLAG NO
[2021-05-31 15:58] LABS: Basophils Percent Auto 0.5 % (0-2); Eosinophils Absolute Auto 0.2 X10*3/uL (0.0-0.4); Eosinophils Percent Auto 1.8 % (0-4); Hematocrit 30.8 % (42-52); Hemoglobin 9.5 g/dl (14.0-18.0); Imm Gran Abs Auto 0.04 X10*3/uL (0.00-0.03); Imm Gran Pct Auto 0.5 % (0.0-0.4); Lymphocytes Absolute Auto 0.7 X10*3/uL (1.2-4.9); Lymphocytes Percent Auto 8.9 % (20-40); Mean Corpuscular HGB Conc 30.8 g/dl (31.0-36.0); Mean Corpuscular Hemoglobin 30.5 pg (27.0-33.0); Mean Platelet Volume 9.9 fL (9.4-12.4); Monocytes Absolute Auto 0.9 X10*3/uL (0.1-1.2); Monocytes Percent Auto 10.5 % (2-11); Neutrophils Absolute Auto 6.4 X10*3/uL (2.0-8.3); Neutrophils Percent Auto 77.8 % (45-73); Platelet Count 422 X10*3/uL (160-400); Red Blood Count 3.11 X10*6/uL (4.60-5.80); Red Cell Distribution Width 14.4 % (11.0-16.0); White Blood Count 8.3 X10*3/uL (4.8-10.8)
[2021-05-31 16:08] LABS: Iron 14 mcg/dL (45-160); Percent Iron Saturation 7 % (15-50); Total Iron Binding Capacity 187 mcg/dL (228-428); Unsaturated Iron Binding 173 ug/dL
[2021-05-31 16:27] LABS: Ferritin 337 ng/mL (20-250)
== END 2021-05-31 15:19 | disposition home or self-care (01) ==
LOC: HO.LAB 15:18
PROVIDERS: PCP Nurse Practitioner Family; Visit Provider Internal Medicine Hypertension Specialist
DX: N18.31 Chronic kidney disease, stage 3a (principal)
CPT/HCPCS: 36415; 82728; 83540; 85025